=== PATIENT | female | born 1945 | race Caucasian/White ===

== ENCOUNTER 2024-03-10 02:17 | Inpatient (IN) | payer MEDICARE, OTHER ==
[~2024-03-10] VITALS: Ht 172.7 cm; Wt 105.1 kg
[2024-03-10] VITALS (9 sets, daily range): PULSE 90–109; RESP 18–24; O2SAT 89–99
--- NOTE | 2024-03-10 02:21 | NUR ---
COVID AND FLU SWABS COLLECTED AND SENT
--- NOTE | 2024-03-10 02:36 | ERN ---
ED Note History of Present Illness Stated Complaint: COUGH, N/V/D, Chief Complaint: Multiple Complaints Time Seen by MD: 02:26 Dictation: This is a 78-year-old female who presented to the emergency room with multiple complaints including cough nausea vomitings diarrhea. She also reported shortness of breath associated with cough for the past 1 week. No history of any fevers chills rigors Temperature 97.9 pulse 91 respirations 20 blood pressure 107/62 with a pulse oximetry of 97% On room air Her chronic medical problems include hypercholesterolemia and hypertension Allergies: Coded Allergies: No Known Allergies (Unverified Allergy, Unknown, 03/10/24) Past Medical History Past Medical History: High Cholesterol, Hypertension Surgical History: None Family History: Negative Social History: Negative History: Not Applicable RN Note Reviewed/Agreed w/PFSH: Yes Review of System Dictation Constitutional: Negative for fever,chills, and weight loss Eyes: Negative for injury, pain,redness, and discharge ENT: Negative for injury,pain or swelling Cardiovascular: Negative for chest pain, palpitations, and edema Respiratory: Negative for shortness of breath, cough, and wheezing, Abdomen/GI: Negative for abdominal pain, nausea, vomiting, diarrhea, and constipation Back: Negative for injury and pain : Negative for injury, bleeding and discharge MS/Extremity: Negative for injury and deformity Skin: Negative for rash, and discoloration Neuro: Negative for headache, weakness, numbness, tingling, and seizure Psych: Negative for suicide ideation, homicidal ideation, and hallucinations Initial Vital Sign VS Vital Signs Date Time Temp Pulse Resp B/P (MAP) Pulse Ox O2 Delivery O2 Flow Rate FiO2 03/10/24 02:19 97.9 91 20 107/62 98 Room Air 03/10/24 02:47 2 28 Physical Exam Dictation General: awake, alert, NAD Head/Face: Normocephalic, atraumatic Eyes: PERRL, EOMI, vision at baseline ENT: oral cavity clear, TMs clear, no signs of infection Neck: Trachea midline, supple, no nuchal rigidity Cardiovascular: RRR, normal S1/S2, No MRGs, no JVD Respiratory: CTAB, no respiratory distress, No rales or wheezes Abdomen: Soft, non-tender, non-distended, normal bowel sounds, no guarding or rebound. Skin: Warm, dry, normal turgor, no rash MS/Extremity: Pulses equal, no cyanosis, neurovascular intact, FROM Neuro: COAx4, GCS 15, strength 5/5, CN 2-12 intact, normal cerebellar exam, normal gait, Psych: Normal behavior, mood, and affect normal Extremities-trace edema without any palpable cords, Homans sign is negative Results (Laboratory/Radiology) Laboratory/Radiology Laboratory Tests Test 03/10/24 02:21 03/10/24 02:33 Influenza Type A Antigen Negative For Type A Influenza Type B Antigen Negative For Type B SARS-CoV-2, RNA, NAAT NEGATIVE SARS CoV-2 White Blood Count 9.7 K/uL (4.8-10.8) Red Blood Count 3.93 MIL/uL (4.00-5.50) L Hemoglobin 8.1 g/dL (12.0-16.0) L Hematocrit 26.3 % (36-48) L Mean Corpuscular Volume 66.9 fL (79-99) L Mean Corpuscular Hemoglobin 20.6 pg (27.0-33.0) L Mean Corpuscular Hemoglobin Concent 30.8 g/dL (32.0-36.0) L Red Cell Distribution Width 15.9 % (11.0-15.5) H Platelet Count 604 K/uL (130-400) H Mean Platelet Volume 9.9 fL (7.5-10.5) Immature Granulocyte % (Auto) 0.5 % (0-1) Neutrophils (%) (Auto) 88.8 % (40.0-77.0) H Lymphocytes (%) (Auto) 5.7 % (21.0-51.0) L Monocytes (%) (Auto) 4.8 % (3.0-13.0) Eosinophils (%) (Auto) 0.1 % (0.0-8.0) Basophils (%) (Auto) 0.1 % (0.0-5.0) Neutrophils # (Auto) 8.6 K/uL (1.8-7.7) H Lymphocytes # (Auto) 0.6 K/uL (1.0-4.8) L Monocytes # (Auto) 0.5 K/uL (0.1-1.0) Eosinophils # (Auto) 0.01 K/uL (0.00-0.70) Basophils # (Auto) 0.01 K/uL (0.00-0.20) Absolute Immature Granulocyte (auto 0.05 K/uL (0-1) Nucleated Red Blood Cells 0.0 % (0.0-0.19) White Cell Morphology Comment See comments Red Blood Cell Morphology See comments Sodium Level 131 mmol/L (136-145) L Potassium Level 3.1 mmol/L (3.5-5.1) L Chloride Level 92 mmol/L (101-111) L Carbon Dioxide Level 27 mmol/L (21-32) Blood Urea Nitrogen 56 mg/dL (7-18) H Creatinine 1.8 mg/dL (0.5-1.0) H Glomerular Filtration Rate Calc 29 mL/min (>90) Random Glucose 145 mg/dL (70-105) H Lactic Acid Level 2.7 mmol/L (0.8-2.5) H Total Calcium 10.4 mg/dL (8.5-10.1) H Troponin I High Sensitivity 14 ng/L (4-50) B-Type Natriuretic Peptide 103 pg/mL (0-100) H Labs Reviewed?: Yes ED Course ED Course Orders Procedure Category Date Status Time Cbc With Differential LAB 03/10/24 Complete 02:20 Basic Metabolic Panel LAB 03/10/24 Complete 02:20 Troponin I High LAB 03/10/24 Complete Sensitivity 02:20 B-Type Natriuretic LAB 03/10/24 Complete Peptide 02:20 Lactic Acid LAB 03/10/24 Complete 02:20 12 Lead Ekg Tracing- EKG 03/10/24 Logged Technical 02:20 Chest 1vw RAD 03/10/24 Taken 02:20 Covid Rna Naat LAB 03/10/24 Complete 02:20 Influenza Type A & B, LAB 03/10/24 Complete Rapid 02:20 Ipratropium/Albuterol PHA 03/10/24 Complete Neb (Duoneb) 03:00 Methylprednisolone PHA 03/10/24 Complete Succ 125mg (Solu-Medr 03:00 Guaifenesin-Codeine PHA 03/10/24 Complete Syrup 5ml (Robitussi 03:00 Ondansetron 4mg Inj PHA 03/10/24 Complete (Zofran 4mg Inj) 02:58 Ondansetron 4mg Inj PHA 03/10/24 Complete (Zofran 4mg Inj) 03:30 0.9% Nacl 500ml PHA 03/10/24 In Process Iv.Soln (Ns 500ml 05:00 Azithromycin 500mg+Ns PHA 03/10/24 In Process 250ml (Azithromyci 05:00 Ceftriaxone 1g Vial PHA 03/10/24 In Process (Rocephine 1g Inj) 05:00 Ipratropium/Albuterol PHA 03/10/24 In Process Neb (Duoneb) 05:00 Current Medications Medications (Trade) Dose Ordered Sig/Jesus Route PRN Reason Start Time Stop Time Status Last Admin Dose Admin Albuterol (DUOneb) 1 UDVIAL ONCE ONCE IH 03/10/24 03:00 03/10/24 03:01 DC 03/10/24 03:56 Albuterol (DUOneb) 1 UDVIAL ONCE ONCE IH 03/10/24 05:00 03/10/24 05:01 Azithromycin 250 ml @ 250 mls/hr Q24H IVPB 03/10/24 05:00 03/20/24 04:59 Ceftriaxone Sodium (ROCEphine 1G INJ) 1 gm ONCE ONCE IVPB 03/10/24 05:00 03/10/24 05:01 Guaifenesin/ Codeine Phosphate (RobiTUSSin AC 5 ML SYRUP) 5 ml ONCE ONCE PO 03/10/24 03:00 03/10/24 03:01 DC 03/10/24 02:52 Methylprednisolone Sodium Succinate (Solu-medROL 125MG) 60 mg ONCE ONCE IVP 03/10/24 03:00 03/10/24 03:01 DC 03/10/24 02:52 Ondansetron HCl (zoFRAN 4MG INJ) 4 mg ONCE ONCE IVP 03/10/24 03:30 03/10/24 03:31 DC 03/10/24 03:19 Ondansetron HCl (zoFRAN 4MG INJ) 4 mg STK-MED ONCE .ROUTE 03/10/24 02:58 03/10/24 02:59 DC Sodium Chloride 500 ml @ 0 mls/hr ONCE ONCE IV 03/10/24 05:00 03/10/24 05:01 Vital Signs Date Time Temp Pulse Resp B/P (MAP) Pulse Ox O2 Delivery O2 Flow Rate FiO2 03/10/24 03:57 92 19 03/10/24 03:57 90 20 Nasal Cannula 2.0 28 03/10/24 03:44 98.6 92 25 114/54 96 Nasal Cannula* 2 28 03/10/24 02:47 94 27 100/54 100 Nasal Cannula* 2 03/10/24 02:19 97.9 91 20 107/62 98 Room Air We will perform diagnostic labs, advanced imaging and administer medications according to the patient's complaint. Once the results are available, will review and personally interpreted the labs to rule out any acute life-threa tening emergency the trach require immediate intervention and treatment. I will then re-evaluate the patient after treatment and diagnostic exams have return to determine whether the patient requires any further testing, can safely be discharged home or need further admission to hospital for additional treatment and evaluation. Labs reviewed CBC showed a white count of 9.7 hemoglobin 8.1 platelets 604 viral serology was negative. BNP 7 is significant for sodium of 131 potassium of 3.1 chloride 94 bicarb 27 BUN and creatinine are 56 and 1.8. Lactic acid was 2.7 chest x-ray showed bilateral increased markings suggestive of possible atypical pneumonia. The other possibility would be aspiration pneumonia in the setting of nausea vomitings. I updated the patient and her about my concerns with the anemia pneumonia and acute kidney injury and recommended admission to the hospital for further management. They are agreeable 4:10 a.m. call placed to the hospitalist group. No response 4:35 a.m. 2nd call placed to the hospitalist group. Nurse practitioner mian returned the call and stated that she will not be able to admit and offered to take another sicker patient and wanted us to call the a.m. shift Medical Decision Making MDM MDM: Differential diagnosis: Atypical pneumonia, aspiration pneumonia, severe bronchitis, volume overload Rationale: Tests considered and ordered secondary to shared decision making include: labs, ECG and radiology Previous outside records reviewed: Old ER visits. Risk of complication and/or morbidity or mortality of patient management: None Medications-Per medication reconciliation Need for hospitalization: Patient does meet criteria for hospitalization. Need for emergency major/minor surgery: No There are no social concerns with this patient. Prescription drug management Prescriptions will include symptomatic care Patient's prior external medical records from other ER visits were reviewed by me as indicated. Prior testing and results from previous visits were reviewed. Prior tests were taken into account with medical decision making and resource utilization, independent historian/historians were used to obtain complete medical history. I independently interpreted the test that were performed, results were reviewed by me and considered findings on radiology if ordered. Medical management and examination interpretation discussions were had by me with other qualified healthcare professionals as indicated for the patient's care. Problem List Problem List: (1) Bilateral pneumonia (2) Lactic acidosis (3) Severe anemia (4) Sepsis (5) Acute kidney failure (6) Hyponatremia (7) Hypokalemia DX & DISP Disposition: Inpatient Decision to Admit Time: 04:10 Departure Impression: Primary Impression: Bilateral pneumonia Additional Impressions: Lactic acidosis, Severe anemia, Sepsis, Acute kidney failure, Hyponatremia, Hypokalemia Condition: Stable Additional Instructions: Patient was informed of all the diagnostic labs and procedures conducted in the emergency room today and demonstrated understanding of the results. I personally reviewed and interpreted all the diagnostic exams performed in the ER today. The patient will be admitted to the hospital for further treatment and evaluation. Disposition-admit to facility Condition-stable/guarded Course-uncertain at this time Pain status-decreased Assessment-exam unchanged Admission Certification- I certify that the patients status is appropriate and is based on my best clinical judgment and the patient's condition as documented in the medical records ALEJA SO MD Mar 10, 2024 02:36
[2024-03-10 02:46] LABS: BASOPHILS # (AUTO) 0.01 K/uL (0.00-0.20); BASOPHILS % (AUTO) 0.1 % (0.0-5.0); EOSINOPHILS # (AUTO) 0.01 K/uL (0.00-0.70); EOSINOPHILS % (AUTO) 0.1 % (0.0-8.0); HEMATOCRIT 26.3 % (36-48); IMMATURE GRANULOCYTE ABSOLUTE 0.05 K/uL (0-1); LYMPHOCYTES # (AUTO) 0.6 K/uL (1.0-4.8); LYMPHOCYTES % (AUTO) 5.7 % (21.0-51.0); MEAN CORPUSCULAR HEMOGLOBIN 20.6 pg (27.0-33.0); MEAN CORPUSCULAR HGB CONC 30.8 g/dL (32.0-36.0); MEAN CORPUSCULAR VOLUME 66.9 fL (79-99); MONOCYTES # (AUTO) 0.5 K/uL (0.1-1.0); MONOCYTES % (AUTO) 4.8 % (3.0-13.0); NEUTROPHILS # (AUTO) 8.6 K/uL (1.8-7.7); NEUTROPHILS % (AUTO) 88.8 % (40.0-77.0); PLATELET COUNT (AUTO) 604 K/uL (130-400); RED BLOOD CELL COUNT(AUTO) 3.93 MIL/uL (4.00-5.50); RED CELL DISTRIBUTION WIDTH 15.9 % (11.0-15.5); WHITE BLOOD COUNT (AUTO) 9.7 K/uL (4.8-10.8)
[2024-03-10 02:46] LABS: SARS-CoV-2, RNA, NAAT NEGATIVE SARS CoV-2 (NEGATIVE)
[2024-03-10 02:52] LABS: INFLUENZA TYPE A Negative For Type A (NEGATIVE); INFLUENZA TYPE B Negative For Type B (NEGATIVE)
[2024-03-10] MEDS: Solu-medROL 125MG VIAL IVP ONE (02:52)
[2024-03-10] MEDS: guaiFENesin-coDEINE 5 ML SYRUP PO ONE (02:52)
--- NOTE | 2024-03-10 02:52 | NUR ---
PATIENT VOMITING X 2 EPISODES WHILE RECEIVING NEBULIZER TREATMENT, ER MD AWARE, VERBAL ORDER FOR ZOFRAN RECEIVED
[2024-03-10 02:57] LABS: CREATININE 1.8 mg/dL (0.5-1.0); POTASSIUM 3.1 mmol/L (3.5-5.1)
--- NOTE | 2024-03-10 03:00 | NUR ---
ATTEMPTED TO CHANGE PATIENT INTO HOSPITAL GOWN DUE TO VOMIT ON CLOTHING, PATIENT STATES SHE PREFERS TO STAY IN [facility] AT THIS TIME
[2024-03-10 03:18] LABS: B-TYPE NATRIURETIC PEPTIDE 103 pg/mL (0-100)
[2024-03-10] MEDS: ondanSETRON 4MG INJ ONE (03:19)
[2024-03-10] MEDS: ondanSETRON 4MG INJ IVP ONE (03:19)
[2024-03-10] MEDS: IpraTROPium/alBUTERol SULFATE 3 ML SOLUTION IH ONE ×2 (03:56→05:08)
[2024-03-10] MEDS: cefTRIAXone 1G VIAL IVPB ONE (05:27)
[2024-03-10] MEDS: 0.9% NACL 500ML IV.SOLN 500 ML IV ONE (05:28)
[2024-03-10] MEDS: PoTASSium BIcarbonate/CIT AC 25 MEQ TABLET.EFF PO ONE (05:28)
[2024-03-10] MEDS: morPHINE 2 MG SYG IVP ONE ×2 (05:28→10:31)
[2024-03-10] MEDS: AZITHROMYCIN 500MG+NS 250ML 250 ML IVPB SCH (05:41)
--- NOTE | 2024-03-10 05:44 | NUR ---
ATTEMPTED TO CHANGE PATIENT INTO HOSPITAL GOWN, STILL STATING SHE DOES NOT WANT TO CHANGE RIGHT NOW
--- NOTE | 2024-03-10 05:45 | NUR ---
PATIENT DID NOT BRING PRESCRIBED MEDICATIONS FROM HOME, UNABLE TO COMPLETE MEDICATION RECONCILIATION. INSTRUCTED PATIENT TO HAVE SPOUSE BRING MEDICATIONS WHEN HE RETURNS TO HOSPITAL SO THEY CAN BE RECONCILED
[2024-03-10] MEDS ORDERED: Solu-medROL 40MG VIAL IVP SCH (07:30)
--- NOTE | 2024-03-10 07:41 | HP ---
[facility] HISTORY AND PHYSICAL Date of Service: Mar 10, 2024 Time of Service: 07:25 HISTORY OF PRESENT ILLNESS: [ ] This is a 78-year-old female that presents in ED with chief complaints of persistent cough nausea and vomiting and diarrhea. Onset for one-week. She reports that [place] and most acquaintances have similar symptoms. She reports diarrhea subsided. She denies fever chills. However, continues with dyspnea with minimal exertion and productive cough and decided to come ED for further evaluation. The patient was seen in ED patient's has chest discomfort however troponin was negative most likely musculoskeletal secondary to persistent cough and nausea vomiting. Patient's respirations 26. Noted no edema to lower extremity she has no heart disease. She does not have a gallbladder reports she is unable to keep anything down. We will bring exchange floor manager's on board. REVIEW OF SYSTEMS CONSTITUTIONAL: Denies fevers, chills, or night sweats. No unintentional weight loss reported. NEUROLOGICAL: Denies headache, amaurosis fugax, motor weakness, sensory deficit, vertigo/spinning sensation, gait abnormalities, or tremors. ENT: No hearing loss, otalgia, otorrhea, rhinitis, rhinorrhea, hoarseness, or sore throat. CARDIOVASCULAR: Denies any exertional angina, dyspnea on exertion, orthopnea, paroxysmal nocturnal dyspnea, palpitations, life-threatening arrhythmias, claudication. PULMONARY: Denies any shortness of breath, cough, phlegm/sputum, hemoptysis, pleuritic chest pain. SLEEP: Denies morning headaches, daytime somnolence or napping. Denies difficulty falling asleep, staying asleep, waking from sleep. Denies knowledge of snoring. GASTROINTESTINAL: Denies any type of dysphagia to either liquids or solids. Denies nausea, vomiting, pyrosis, early satiety, abdominal pain, diarrhea, constipation, or changes in stool consistency or caliber. Denies coffee-ground emesis, hematemesis, hematochezia, or melanotic stools. GENITOURINARY: Denies frequency, urgency, nocturia, hematuria or incontinence (Storage/Irritative symptoms.) Low urinary stream, straining to void, urinary intermittency or hesitancy, splitting of the voiding stream, terminal dribbling. ENDOCRINOLOGIC: Denies polyuria, polydipsia, polyphagia or heat/cold intolerances. HEMATOLOGIC: Denies thrombophilia/previous clots, or coagulopathy/bleeding disorders. ONCOLOGIC: Denies personal history of malignancy. DERMATOLOGIC: Denies rashes or pruritus. PSYCHIATRIC: Denies any suicidal or homicidal ideation. Denies hallucinations. PAST MEDICAL HISTORY: [ ]hypercholesterolemia and hypertension PAST SURGICAL HISTORY: [ ]none PAST SOCIAL HISTORY: [ ] Denies smoking tobacco products and alcohol use. FAMILY HISTORY: [ ] Noncontributory Coded Allergies: No Known Allergies (Unverified Allergy, Unknown, 03/10/24) PHYSICAL EXAM GENERAL APPEARANCE: The patient is awake, alert, and oriented, in no acute cardiopulmonary distress. NEUROLOGICAL: Cranial nerves II-XII grossly intact. Motor is 5/5 in bilateral upper and lower extremities proximal to distal. No sensory deficits. HEENT: Face is symmetric. Pupils are equal and reactive. Extraocular movements are intact. NECK: Supple. No JVD. No thyromegaly. No submental, submandibular, pre- /postauricular, occipital or supraclavicular lymphadenopathy. CHEST: Normal chest expansion. No Telemetry. LUNGS: Absence of any rales, rhonchi or any wheezing. CARDIOVASCULAR: Regular. S1 and S2 normal. No appreciable rubs, murmurs or gallops. ABDOMEN: Soft, nontender, and nondistended. There is no rebound, voluntary guarding, or rigidity. : Deferred. No Ba. EXTREMITIES: Non-edematous and not cyanotic. No clubbing. Good capillary r efill. SKIN: No skin breakdown. Vital Sign (Last 24 Hours) 03/10/24 06:30 Temp 98.6 Pulse 105 Resp 21 B/P (MAP) 127/57 Pulse Ox 95 O2 Delivery Nasal Cannula* O2 Flow Rate 2 FiO2 28 LABS: Laboratory: Test 03/10/24 06:19 03/10/24 02:33 03/10/24 02:21 Range/Units Lactic Acid Level 2.1 0.8-2.5 mmol/L White Blood Count 9.7 4.8-10.8 K/uL Red Blood Count 3.93 L 4.00-5.50 MIL/uL Hemoglobin 8.1 L 12.0-16.0 g/dL Hematocrit 26.3 L 36-48 % Mean Corpuscular Volume 66.9 L 79-99 fL Mean Corpuscular Hemoglobin 20.6 L 27.0-33.0 pg Mean Corpuscular Hemoglobin Concent 30.8 L 32.0-36.0 g/dL Red Cell Distribution Width 15.9 H 11.0-15.5 % Platelet Count 604 H 130-400 K/uL Mean Platelet Volume 9.9 7.5-10.5 fL Immature Granulocyte % (Auto) 0.5 0-1 % Neutrophils (%) (Auto) 88.8 H 40.0-77.0 % Lymphocytes (%) (Auto) 5.7 L 21.0-51.0 % Monocytes (%) (Auto) 4.8 3.0-13.0 % Eosinophils (%) (Auto) 0.1 0.0-8.0 % Basophils (%) (Auto) 0.1 0.0-5.0 % Neutrophils # (Auto) 8.6 H 1.8-7.7 K/uL Lymphocytes # (Auto) 0.6 L 1.0-4.8 K/uL Monocytes # (Auto) 0.5 0.1-1.0 K/uL Eosinophils # (Auto) 0.01 0.00-0.70 K/uL Basophils # (Auto) 0.01 0.00-0.20 K/uL Absolute Immature Granulocyte (auto 0.05 0-1 K/uL Nucleated Red Blood Cells 0.0 0.0-0.19 % White Cell Morphology Comment See comments Red Blood Cell Morphology See comments Sodium Level 131 L 136-145 mmol/L Potassium Level 3.1 L 3.5-5.1 mmol/L Chloride Level 92 L 101-111 mmol/L Carbon Dioxide Level 27 21-32 mmol/L Blood Urea Nitrogen 56 H 7-18 mg/dL Creatinine 1.8 H 0.5-1.0 mg/dL Glomerular Filtration Rate Calc 29 >90 mL/min Random Glucose 145 H 70-105 mg/dL Total Calcium 10.4 H 8.5-10.1 mg/dL Troponin I High Sensitivity 14 4-50 ng/L B-Type Natriuretic Peptide 103 H 0-100 pg/mL Influenza Type A Antigen Negative For Type A NEGATIVE Influenza Type B Antigen Negative For Type B NEGATIVE SARS-CoV-2, RNA, NAAT NEGATIVE SARS CoV-2 NEGATIVE Current Medications Medications (Trade) Dose Ordered Sig/Jesus Route PRN Reason Start Time Stop Time Status Last Admin Dose Admin Azithromycin 250 ml @ 250 mls/hr Q24H IVPB 03/10/24 05:00 03/20/24 04:59 03/10/24 05:41 250 MLS/HR DIAGNOSTICS / RADIOLOGY: [ ] ASSESSMENT: Sepsis: lactic acid 2.7, low blood pressure, RR: 27)POA acute resp failure with hypoxia POA elevated D dimer rule out PE POA Acute gastroenteritis POA ELVA most likely CRF stage III POA Microcytic anemia electrolytes derangement: Hypokalemia hyponatremia POA Failure to strive POA PLAN: [ ] admit to P[facility]U claims consultant: Pulmologist Sepsis: lactic acid 2.7, low blood pressure, RR: 27)POA acute resp failure with hypoxia POA - DuoNeb treatment with CPT, IV steroids, Oxygen supplemental to keep O2 sat above 92% - Abt's; Rocephin and Zithromax IV; resp sputum gram stain /culture - IS usage while awake. - PRN: antitussive as needed for cough, Montelukast 10 mg po daily - Aspiration precaution HOB at 45 degree at all time TESt: CT chest - labs d dimer acute gastroenteritis; - c diff, PCR stool, ova/parasites - metronidazole 500 mg IV q8 hrs. Labs: will add procalcitonin and crp. Avoid NSAIDs IV fluids at 50 mL/hour. CMP in a.m. GI soft bland diet Replace electrolytes as needed per protocol Anemia workup transfuse to keep hemoglobin above 7.0. - PT services OOB to chair , fall precautions PRN: MEDICATIONS Tylenol 650 mg po every 4 hrs for fever Zofran 4 mg IV every 6 hrs for n/v Hydralazine 5 mg IV every 4 hrs systolic pressure > 160 Supportive measures: DVT ppx, GI ppx all questions answered time spent: > 35 min Supervising MD: Dr. Betancourt c/d ATTESTATION BY PHYSICIAN I have seen and examined the patient. I reviewed the documentation, medical decision making, and treatment plan as noted by the resident provider above. I agree with the findings and plan of care. Eusebio Betancourt MD, ELIZABETH NP Mar 10, 2024 07:41
--- NOTE | 2024-03-10 07:49 | EKG ---
[facility] Test Date: 2024-03-10 Test Time: 02:24:58 Pat Name: MARIIA CARR Department: EDHIP Room: 415 Gender: F Sr. Manager Corporate Communications: [id number] : [id number] Requested By: ALEJA SO Order Number: [id number] Reading MD: Emmett Slater Measurements Intervals [place] Rate: 99 P: 18 [place]: 159 QRS: 54 QRSD: 149 T: -11 QT: 364 QTc: 461 Interpretive Statements Sinus rhythm Atrial premature complex Right bundle branch block No previous ECG available for comparison Electronically Signed On 03-13-2024 18:40:09 SPARK TESTER by Emmett Slater Please click the below link to view image of tracing.
[2024-03-10 08:22] LABS: ALBUMIN 2.4 g/dL (3.5-5.0)
[2024-03-10] MEDS ORDERED: hydrALAZine 20MG/ML VIAL IV PRN (08:30)
--- NOTE | 2024-03-10 08:30 | HMCIMG ---
CHEST 1VW REASON: SOB COMPARISON: None. FINDINGS: Single view of the chest was obtained. Lungs are clear. Heart size is normal. There is no pulmonary vascular congestion. Mediastinum and bony thorax appear unremarkable. IMPRESSION: 1. Normal single view chest x-ray.
[2024-03-10 09:03] LABS: % IRON SATURATION 2.1 % (22-44); IRON, SERUM 6 mcg/dL (50-170); TOTAL IRON BINDING CAPACITY 273 mcg/dL (250-450)
[2024-03-10 09:21] LABS: FERRITIN 66 ng/mL (15-150)
[2024-03-10] MEDS: metRONIDazole 500MG/100ML BAG 100 ML IVPB SCH (09:36)
[2024-03-10] MEDS: 0.9%NACL 1000ML 1,000 ML IV SCH (09:36)
[2024-03-10] MEDS: Solu-medROL 40MG VIAL IVP SCH (09:37)
[2024-03-10] MEDS: PANTOPrazole 40 MG/VIAL IVP SCH (09:37)
--- NOTE | 2024-03-10 10:10 | NUR ---
PULMO CONSULT: PATIENT REPORT GIVEN TO ALLY LORENZO,. ORDERS RECIEVED
--- NOTE | 2024-03-10 10:12 | NUR ---
PT C/O CHEST TIGHTNESS: ORDERS RECEIVED BY ELE FORM SETTER [employer]
[2024-03-10] MEDS ORDERED: PoTASSium chloRIDE 10MEQ/100ML 100 ML IV PRN ×2 (10:30)
[2024-03-10] MEDS: furoSEMIDE 20MG VIAL IV ONE (10:31)
[2024-03-10] MEDS: monteLUKAST sodIUM 10 MG TAB PO SCH (10:31)
[2024-03-10] MEDS: ZOSYN 3.375GM +NS 50ML IV SCH (11:16)
[2024-03-10] MEDS: BUDESONIDE 0.5 MG/2 ML INH IH SCH (11:18)
--- NOTE | 2024-03-10 11:18 | NUR ---
DCP: HOME met with pt and Twan Barriga [phone]. Couple is from [place] and have moved here permanently last year to live at [facility] and [facility]. Prior to admission, pt states she has no needed a PCP and not sure if she will try to get in with Melany Waldron. Pt is independent of her ADLS, has walker if needed, no in home care services needed at this time. Community resources given, dcp is home Addendum: 03/10/24 at 1123 by ALISHA MILLER Amended: Links added.
[2024-03-10] MEDS: acetylCYSTeine10% 4ML VIAL IH SCH (11:19)
[2024-03-10] MEDS: IpraTROPium/alBUTERol SULFATE 3 ML SOLUTION IH SCH (11:19)
[2024-03-10] MEDS: SODIUM CHLORIDE 3% FOR INHALATION 4 ML/AMP VIAL.NEB IH ONE ×4 (11:26→23:34)
--- NOTE | 2024-03-10 12:22 | EKG ---
[facility] Test Date: 2024-03-10 Test Time: 10:25:24 Pat Name: MARIIA CARR Department: EDHIP Room: 415 Gender: F Sausage Inspector: [id number] : 1945 Requested By: ALLY MASON Order Number: [id number] Reading MD: Emmett Slater Measurements Intervals [place] Rate: 104 P: 18 [place]: 167 QRS: 52 QRSD: 147 T: -21 QT: 393 QTc: 511 Interpretive Statements Sinus tachycardia Atrial premature complexes Right bundle branch block Compared to ECG 03/10/2024 02:24:58 Sinus rhythm no longer present Electronically Signed On 03-13-2024 18:44:07 MUSIC AUTOGRAPHER by Emmett Slater Please click the below link to view image of tracing.
[2024-03-10] MEDS: PoTASSium chl 10% ELIXIR 20MEQ 20 MEQ/15 ML UDCUP PO PRN (14:08)
--- NOTE | 2024-03-10 14:12 | NUR ---
PT AWARE OF RESP CULUTURE ORDER., GIVEN CUP FOR SPUTUM COLLECTION
[2024-03-10 16:19] LABS: ABG BASE EXCESS -2.2 mmol/L (-2.0-3.0); ABG HCO3 20.9 mmol/L (21.0-28.0); ABG OXYGEN SATURATION 94.9 % (94.0-98.0); ABG PCO2 32 mmHg (32-45); ABG PH 7.439 (7.350-7.450); PO2, ARTERIAL BG 70.5 mmHg (83.0-108.0); VENT MODE, BG NC (ROOM AIR)
--- NOTE | 2024-03-10 16:28 | HMCIMG ---
CT CHEST W/O CONTRAST REASON: rule out mass/pneumonia hypoxic resp failure COMPARISON: None. TECHNIQUE: Multiple sequential axial images of the chest were obtained from the thoracic inlet through the upper pole of the kidneys without intravenous contrast administration. FINDINGS: Lungs are clear. There are no focal masses or infiltrates. There is normal-appearing pulmonary interstitial pattern. Heart size is borderline. There is no vascular congestion or pleural effusion. There is no hilar or mediastinal lymphadenopathy. There is a moderate hiatal hernia. Stomach is fluid-filled and mildly distended. Gallbladder is absent. Upper abdominal structures appear otherwise unremarkable. IMPRESSION: 1. Moderate hiatal hernia, the stomach is diffusely filled with fluid 2. Otherwise unremarkable noncontrast CT chest. CT was performed with one or more following dose reduction techniques: automated exposure control, adjustment of the mA and kv according to patient's size, or use of a iterative reconstruction technique.
[2024-03-10] MEDS: HEParin 5,000 UNIT VIAL SQ SCH (16:53)
--- NOTE | 2024-03-10 19:41 | CONS ---
[facility] CONSULTATION NOTE Date Patient Seen: Mar 10, 2024 Time of Visit: 19:37 Supervising Physician: Dr. Jessica Galindo Reason for Consultation: Acute hypoxic respiratory failure Consulting Physician: Lalitha quiros Outpatient Specialists: [ ] Inpatient Consults: [ ] PROBLEM LIST: Acute hypoxic respiratory failure, negative for COVID and flu chest x-ray showed no acute infiltrate, POA Possible ROSEMARIE, POA Hypertension, POA Hyperlipidemia, POA Microcytic anemia, POA Hyponatremia, POA Hypokalemia, POA Acute kidney injury, POA PLAN: Admit per primary Continue O2 therapy Keep O2 saturation above 90% Keep head of bed above 30 DuoNeb q.6 as needed for shortness of breaths Complete bedrest for now Incentive spirometry Bilateral SCDs Obtain 2D echo Obtain UA Anticoagulation management per primary Obtain V/Q scan CBC, CMP, magnesium level daily HPI: 78-year-old female with past medical history of obesity, hypertension, hyperlipidemia who presented to ED with complaint of worsening shortness of breath, with associated cough, nausea and vomiting and episodic diarrhea for almost one week and found to have acute kidney injury, acute hypoxic respiratory failure, hypokalemia and hyponatremia. Patient was seen and examined in ED with no relatives present at bedside. According to her she has been having issues with shortness of bed for the past several days. Her symptoms continued to worsen prompting ER visit today. In ED chest x-ray was done and showed no acute intrapulmonary process, CT of the chest did not reveal any acute infiltrates. Her CBC is remarkable for hemoglobin of 8.1, and hematocrit of 26.6, with platelet count of 606. Her chemistry showed sodium level of 131, potassium level of 3.0, creatinine level 1.8, and BUN of 56. For COVID and flu tests were unremarkable, UA is currently pending at this time. In ED patient required O2 administration for episodic desaturation. [facility]ology was consulted for evaluation of acute hypoxic respiratory failure. At present patient is currently hemodynamically stable, on2 L of oxygen with appropriate oxygen saturation. She denies any lung problem, she denies any smoking, or exposure to secondhand smoking. She also denies any use of albuterol or oxygen at home. However she is complaining of periodic cough with whitish phlegm and paroxysmal nocturnal dyspnea. Patient denies any headache, chest pain, abdominal pain, fever, or flu-like symptoms. Patient is complaining of generalized body weakness and mild shortness of breath. PAST MEDICAL HX: see above PAST SURGICAL HX: noncontributory SOCIAL HISTORY: No tobacco, ETOH, or illicit drug use Coded Allergies: No Known Allergies (Unverified Allergy, Unknown, 03/10/24) REVIEW OF SYSTEMS: 12 point ROS reviewed with patient. Pertinent positives mentioned above. Otherwise negative. PHYSICAL EXAM: GENERAL: alert, weak, awake oriented x 3 HEENT: EOMI, Sclera non icteric, moist mucosa NECK: Supple, no JVD, trachea midline LUNGS: Clear breath sounds bilaterally. Diminished bibasilar area HEART: Regular rate and rhythm. Normal S1 and S2, without murmurs ABD: Large body habitus EXT: No clubbing cyanosis 3+ pitting edema NEURO: Alert and oriented to person, follows commands Vital Signs (last 8hr) Date Time Temp Pulse Resp B/P (MAP) Pulse Ox O2 Delivery O2 Flow Rate FiO2 03/10/24 18:12 108 20 130/64 95 Nasal Cannula* 4 36 03/10/24 16:05 107 20 127/62 96 Nasal Cannula* 2 28 03/10/24 12:18 115 22 109/52 95 Nasal Cannula* 3 32 03/10/24 11:58 109 20 03/10/24 11:57 109 24 N/A Room Air LABS: Hematology Labs: Test 03/10/24 06:19 03/10/24 02:33 Range/Units Reticulocyte Count (auto) 1.53541 0.42-2.23 % Immature Reticulocyte Fraction 18.20 H 0.18-0.48 % White Blood Count 9.7 4.8-10.8 K/uL Red Blood Count 3.93 L 4.00-5.50 MIL/uL Hemoglobin 8.1 L 12.0-16.0 g/dL Hematocrit 26.3 L 36-48 % Mean Corpuscular Volume 66.9 L 79-99 fL Mean Corpuscular Hemoglobin 20.6 L 27.0-33.0 pg Mean Corpuscular Hemoglobin Concent 30.8 L 32.0-36.0 g/dL Red Cell Distribution Width 15.9 H 11.0-15.5 % Platelet Count 604 H 130-400 K/uL Mean Platelet Volume 9.9 7.5-10.5 fL Immature Granulocyte % (Auto) 0.5 0-1 % Neutrophils (%) (Auto) 88.8 H 40.0-77.0 % Lymphocytes (%) (Auto) 5.7 L 21.0-51.0 % Monocytes (%) (Auto) 4.8 3.0-13.0 % Eosinophils (%) (Auto) 0.1 0.0-8.0 % Basophils (%) (Auto) 0.1 0.0-5.0 % Neutrophils # (Auto) 8.6 H 1.8-7.7 K/uL Lymphocytes # (Auto) 0.6 L 1.0-4.8 K/uL Monocytes # (Auto) 0.5 0.1-1.0 K/uL Eosinophils # (Auto) 0.01 0.00-0.70 K/uL Basophils # (Auto) 0.01 0.00-0.20 K/uL Absolute Immature Granulocyte (auto 0.05 0-1 K/uL Nucleated Red Blood Cells 0.0 0.0-0.19 % White Cell Morphology Comment See comments Red Blood Cell Morphology See comments Chemistry Labs: Test 03/10/24 16:43 03/10/24 14:07 03/10/24 11:23 03/10/24 06:19 Range/Units Total Creatine Kinase 75 # 21-232 U/L Troponin I High Sensitivity 16.5 4-50 ng/L Thyroid Stimulating Hormone (TSH) 0.74 0.36-3.74 uIU/mL Whole Blood Glucose 110 70-110 MG/DL Lactic Acid Level 2.1 0.8-2.5 mmol/L Iron Level 6 L 50-170 mcg/dL Total Iron Binding Capacity 273 250-450 mcg/dL Percent Iron Saturation 2.1 L 22-44 % Ferritin 66 15-150 ng/mL C-Reactive Protein, Quantitative 412.30 H 0.5-3.0 mg/L Albumin 2.4 L 3.5-5.0 g/dL Vitamin B12 Level 7072 H 193-986 pg/mL Folic Acid (LAB) > 20.00 H 2-20 ng/mL Procalcitonin 28.83 H 0.05-0.5 ng/mL Test 03/10/24 02:33 Range/Units Sodium Level 131 L 136-145 mmol/L Potassium Level 3.1 L 3.5-5.1 mmol/L Chloride Level 92 L 101-111 mmol/L Carbon Dioxide Level 27 21-32 mmol/L Blood Urea Nitrogen 56 H 7-18 mg/dL Creatinine 1.8 H 0.5-1.0 mg/dL Glomerular Filtration Rate Calc 29 >90 mL/min Random Glucose 145 H 70-105 mg/dL Total Calcium 10.4 H 8.5-10.1 mg/dL B-Type Natriuretic Peptide 103 H 0-100 pg/mL Coagulation Labs: Test 03/10/24 06:19 Range/Units D-Dimer Quantitative (PE/DVT) 9939 *H 0-500 ng/mL DIAGNOSTICS / RADIOLOGY RESULTS: CT CHEST W/O CONTRAST REASON: rule out mass/pneumonia hypoxic resp failure COMPARISON: None. TECHNIQUE: Multiple sequential axial images of the chest were obtained from the thoracic inlet through the upper pole of the kidneys without intravenous contrast administration. FINDINGS: Lungs are clear. There are no focal masses or infiltrates. There is normal-appearing pulmonary interstitial pattern. Heart size is borderline. There is no vascular congestion or pleural effusion. There is no hilar or mediastinal lymphadenopathy. There is a moderate hiatal hernia. Stomach is fluid-filled and mildly distended. Gallbladder is absent. Upper abdominal structures appear otherwise unremarkable. IMPRESSION: 1. Moderate hiatal hernia, the stomach is diffusely filled with fluid 2. Otherwise unremarkable noncontrast CT chest. CHEST 1VW REASON: SOB COMPARISON: None. FINDINGS: Single view of the chest was obtained. Lungs are clear. Heart size is normal. There is no pulmonary vascular congestion. Mediastinum and bony thorax appear unremarkable. IMPRESSION: 1. Normal single view chest x-ray. PLAN NEURO: Minimize central acting medications as possible. Maintain fall precautions, adequate lighting during the day PULMONARY: Supplemental 02 as needed. Maintain aspiration precautions at all times CARDIOVASCULAR: Follow hemodynamics. Vital signs per facility protocol GI & NUTRITION: Continue with nutritional support. Continue stool softeners and laxatives as needed. KIDNEYS & ELECTROLYTES: Strict monitoring of intake, output and overall fluid balance. Avoid nephrotoxic medications to the extent possible. Medications to be dosed according to renal function. Monitor electrolytes and replace as needed ENDOCRINE: Maintain blood glucose between 100-180 at all times. Hypoglycemia protocol in place INFECTIOUS DISEASE: Trend temperature, WBC and procalcitonin level Follow cultures, deescalate antibiotics as soon as possible. Panculture if new onset fever ONCOLOGY/HEMATOLOGY/COAGULATION: Monitor for s/s of bleeding Monitor hemoglobin, coagulation studies as needed SKIN: Pressure ulcer prevention per facility protocol Specialty mattress ORTHO/REHAB: Continue PT/OT Prophylaxis: Continue GI and DVT prophylaxis Code Status: Full Resuscitation Disposition: TBD Other: Total patient care time exceeds 35 minutes excluding all procedures. Supervising physician: Dr. Jessica MAHARAJ,JAGDISH Salas AGACNP Mar 10, 2024 19:41
[2024-03-11] VITALS (7 sets, daily range): BP systolic 128–134; BP diastolic 57–76; PULSE 93–106; RESP 18–20; TEMP 97.4–98.2; O2SAT 94–95
[2024-03-11] MEDS ORDERED: cefTRIAXone 1G VIAL IVPB SCH (08:00)
--- NOTE | 2024-03-11 08:28 | NUR ---
BREAKFAST TRAY PROVIDED AND SET UP AT BEDSIDE FOR PT.
[2024-03-11] MEDS: AZITHROMYCIN 500MG+NS 250ML 250 ML IVPB SCH (08:41)
--- NOTE | 2024-03-11 10:08 | PN ---
[facility] PROGRESS NOTE Date of Service: Mar 11, 2024 Time of Service: 10:06 SUBJECTIVE: [ ] This is a 78-year-old female that presents in ED with chief complaints of persistent cough nausea and vomiting and diarrhea. Onset for one-week. She reports that [place] and most acquaintances have similar symptoms. She reports diarrhea subsided. She denies fever chills. However, continues with dyspnea with minimal exertion and productive cough and decided to come ED for further evaluation. March 11, 2024 patient is seen and examined earlier this morning. Reviewed chart imaging. Patient with a low H&H 7.0 patient is asymptomatic we will get H&H every 6 hours this morning reports no active bleeding. However she did have severe diarrhea prior to this admission. Occult stool blood and consult GI patient is doing much better today compared to yesterday. On nasal cannula 2 L physical therapy to ambulate patient we will going to attempt to titrate oxygen. REVIEW OF SYSTEMS CONSTITUTIONAL: Denies fevers, chills, or night sweats. No unintentional weight loss reported. NEUROLOGICAL: Denies headache, amaurosis fugax, motor weakness, sensory deficit, vertigo/spinning sensation, gait abnormalities, or tremors. ENT: No hearing loss, otalgia, otorrhea, rhinitis, rhinorrhea, hoarseness, or sore throat. CARDIOVASCULAR: Denies any exertional angina, dyspnea on exertion, orthopnea, paroxysmal nocturnal dyspnea, palpitations, life-threatening arrhythmias, claudication. PULMONARY: Denies any shortness of breath, cough, phlegm/sputum, hemoptysis, pleuritic chest pain. SLEEP: Denies morning headaches, daytime somnolence or napping. Denies difficulty falling asleep, staying asleep, waking from sleep. Denies knowledge of snoring. GASTROINTESTINAL: Denies any type of dysphagia to either liquids or solids. Denies nausea, vomiting, pyrosis, early satiety, abdominal pain, diarrhea, constipation, or changes in stool consistency or caliber. Denies coffee-ground emesis, hematemesis, hematochezia, or melanotic stools. GENITOURINARY: Denies frequency, urgency, nocturia, hematuria or incontinence (Storage/Irritative symptoms.) Low urinary stream, straining to void, urinary intermittency or hesitancy, splitting of the voiding stream, terminal dribbling. ENDOCRINOLOGIC: Denies polyuria, polydipsia, polyphagia or heat/cold intolerances. HEMATOLOGIC: Denies thrombophilia/previous clots, or coagulopathy/bleeding disorders. ONCOLOGIC: Denies personal history of malignancy. DERMATOLOGIC: Denies rashes or pruritus. PSYCHIATRIC: Denies any suicidal or homicidal ideation. Denies hallucinations. PHYSICAL EXAM GENERAL APPEARANCE: The patient is awake, alert, and oriented, in no acute cardiopulmonary distress. NEUROLOGICAL: Cranial nerves II-XII grossly intact. Motor is 5/5 in bilateral upper and lower extremities proximal to distal. No sensory deficits. HEENT: Face is symmetric. Pupils are equal and reactive. Extraocular movements are intact. NECK: Supple. No JVD. No thyromegaly. No submental, submandibular, pre- /postauricular, occipital or supraclavicular lymphadenopathy. CHEST: Normal chest expansion. No Telemetry. LUNGS: Absence of any rales, rhonchi or any wheezing. CARDIOVASCULAR: Regular. S1 and S2 normal. No appreciable rubs, murmurs or gallops. ABDOMEN: Soft, nontender, and nondistended. There is no rebound, voluntary guarding, or rigidity. : Deferred. No Ba. EXTREMITIES: Non-edematous and not cyanotic. No clubbing. Good capillary refill. SKIN: No skin breakdown. Vital Signs (last 8hr) Date Time Temp Pulse Resp B/P (MAP) Pulse Ox O2 Delivery O2 Flow Rate FiO2 03/11/24 07:27 96 18 03/11/24 07:02 92 21 115/66 95 Nasal Cannula* 2 28 03/11/24 04:38 94 20 115/56 95 Nasal Cannula* 4 36 03/11/24 02:30 99 20 116/59 95 Nasal Cannula* 4 36 LABS: Laboratory: Test 03/10/24 20:51 03/10/24 16:43 03/10/24 16:18 03/10/24 14:07 Range/Units Troponin I High Sensitivity 17 4-50 ng/L Total Creatine Kinase 75 # 21-232 U/L Blood Gas Specimen Type Arterial Arterial Blood pH 7.439 7.350-7.450 Arterial Blood Partial Pressure CO2 32 32-45 mmHg Arterial Blood Partial Pressure O2 70.5 L 83.0-108.0 mmHg Arterial Blood HCO3 20.9 L 21.0-28.0 mmol/L Arterial Blood Oxygen Saturation 94.9 94.0-98.0 % Arterial Blood Base Excess -2.2 L -2.0-3.0 mmol/L Blood Gas Temperature 37.0 35.5-37.0 CELSIUS Blood Gas Flow-by 3.00 0.00-15.00 L/min Blood Gas Vent Mode NC ROOM AIR FiO2 28.0 % Blood Gas Specimen Comment LR,JOSEFA Thyroid Stimulating Hormone (TSH) 0.74 0.36-3.74 uIU/mL Test 03/10/24 11:23 03/10/24 06:19 03/10/24 02:33 03/10/24 02:21 Range/Units Whole Blood Glucose 110 70-110 MG/DL Reticulocyte Count (auto) 1.63987 0.42-2.23 % Immature Reticulocyte Fraction 18.20 H 0.18-0.48 % D-Dimer Quantitative (PE/DVT) 9939 *H 0-500 ng/mL Lactic Acid Level 2.1 0.8-2.5 mmol/L Iron Level 6 L 50-170 mcg/dL Total Iron Binding Capacity 273 250-450 mcg/dL Percent Iron Saturation 2.1 L 22-44 % Ferritin 66 15-150 ng/mL C-Reactive Protein, Quantitative 412.30 H 0.5-3.0 mg/L Albumin 2.4 L 3.5-5.0 g/dL Vitamin B12 Level 7072 H 193-986 pg/mL Folic Acid (LAB) > 20.00 H 2-20 ng/mL Procalcitonin 28.83 H 0.05-0.5 ng/mL White Blood Count 9.7 4.8-10.8 K/uL Red Blood Count 3.93 L 4.00-5.50 MIL/uL Hemoglobin 8.1 L 12.0-16.0 g/dL Hematocrit 26.3 L 36-48 % Mean Corpuscular Volume 66.9 L 79-99 fL Mean Corpuscular Hemoglobin 20.6 L 27.0-33.0 pg Mean Corpuscular Hemoglobin Concent 30.8 L 32.0-36.0 g/dL Red Cell Distribution Width 15.9 H 11.0-15.5 % Platelet Count 604 H 130-400 K/uL Mean Platelet Volume 9.9 7.5-10.5 fL Immature Granulocyte % (Auto) 0.5 0-1 % Neutrophils (%) (Auto) 88.8 H 40.0-77.0 % Lymphocytes (%) (Auto) 5.7 L 21.0-51.0 % Monocytes (%) (Auto) 4.8 3.0-13.0 % Eosinophils (%) (Auto) 0.1 0.0-8.0 % Basophils (%) (Auto) 0.1 0.0-5.0 % Neutrophils # (Auto) 8.6 H 1.8-7.7 K/uL Lymphocytes # (Auto) 0.6 L 1.0-4.8 K/uL Monocytes # (Auto) 0.5 0.1-1.0 K/uL Eosinophils # (Auto) 0.01 0.00-0.70 K/uL Basophils # (Auto) 0.01 0.00-0.20 K/uL Absolute Immature Granulocyte (auto 0.05 0-1 K/uL Nucleated Red Blood Cells 0.0 0.0-0.19 % White Cell Morphology Comment See comments Red Blood Cell Morphology See comments Sodium Level 131 L 136-145 mmol/L Potassium Level 3.1 L 3.5-5.1 mmol/L Chloride Level 92 L 101-111 mmol/L Carbon Dioxide Level 27 21-32 mmol/L Blood Urea Nitrogen 56 H 7-18 mg/dL Creatinine 1.8 H 0.5-1.0 mg/dL Glomerular Filtration Rate Calc 29 >90 mL/min Random Glucose 145 H 70-105 mg/dL Total Calcium 10.4 H 8.5-10.1 mg/dL B-Type Natriuretic Peptide 103 H 0-100 pg/mL Influenza Type A Antigen Negative For Type A NEGATIVE Influenza Type B Antigen Negative For Type B NEGATIVE SARS-CoV-2, RNA, NAAT NEGATIVE SARS CoV-2 NEGATIVE Current Medications Medications (Trade) Dose Ordered Sig/Jesus Route PRN Reason Start Time Stop Time Status Last Admin Dose Admin Acetaminophen (TYLenol 325MG TAB) 650 mg Q4H PRN PO TEMPERATURE GREATER THAN 101.5 03/10/24 07:30 04/09/24 07:29 Acetylcysteine (MUComyst 10% 4ML) 400mg = 4ml [id number] IH 03/10/24 12:00 04/09/24 11:59 03/11/24 07:23 400 MG Albuterol (DUOneb) 1 UDVIAL [id number] IH 03/10/24 12:00 04/09/24 11:59 03/11/24 07:23 1 UDVIAL Azithromycin 250 ml @ 250 mls/hr Q24H IVPB 03/10/24 05:00 03/10/24 07:39 DC 03/10/24 05:41 250 MLS/HR Azithromycin 250 ml @ 250 mls/hr Q24H IVPB 03/11/24 08:00 03/21/24 07:59 03/11/24 08:41 250 MLS/HR Budesonide (Pulmicort 0.5 Mg/2ml) 0.5 mg BIDRESP IH 03/10/24 10:30 04/09/24 10:29 03/11/24 07:24 0.5 MG Ceftriaxone Sodium (ROCEphine 1G INJ) 1 gm Q24H IVPB 03/11/24 08:00 03/10/24 10:20 DC Guaifenesin/ Dextromethorphan (RobiTUSSin DM 200/20MG 10ML) 5 ml Q4H PRN PO COUGH 03/10/24 07:30 04/09/24 07:29 Heparin Sodium (Porcine) (HEParin 5,000 UNIT VIAL) 5,000 unit Q12H SQ 03/10/24 16:30 04/09/24 16:29 03/11/24 04:35 5,000 UNIT Hydralazine HCl (APRESOLine 20MG INJ) 5 mg Q4H PRN IV ADMINISTER FOR SBP > 160 03/10/24 08:30 04/09/24 08:29 Methylprednisolone Sodium Succinate (Solu-medROL 40MG) 40 mg Q8H IVP 03/10/24 07:30 03/10/24 07:39 DC Methylprednisolone Sodium Succinate (Solu-medROL 40MG) 40 mg Q8H IVP 03/10/24 07:30 04/09/24 07:29 03/11/24 08:41 40 MG Metronidazole/ Sodium Chloride 100 ml @ 100 mls/hr Q8H IVPB 03/10/24 08:30 03/10/24 10:15 DC 03/10/24 09:36 100 MLS/HR Montelukast Sodium (SinguLAIR) 10 mg DAILY PO 03/10/24 09:00 04/09/24 08:59 03/11/24 09:24 10 MG Pantoprazole Sodium (PROTonix 40MG INJ) 40 mg DAILY IVP 03/10/24 09:00 04/09/24 08:59 03/11/24 09:24 40 MG Piperacillin Sod/ Tazobactam Sod (Zosyn 3.375gm+NS 50ml) 3.375 gm Q8H IV 03/10/24 10:30 03/20/24 10:29 03/11/24 03:53 3.375 GM Potassium Chloride 100 ml @ 100 mls/hr AD PRN IV POTASSIUM PROTOCOL 03/10/24 10:30 03/10/24 10:26 DC Potassium Chloride 100 ml @ 100 mls/hr AD PRN IV POTASSIUM PROTOCOL 03/10/24 10:30 04/09/24 10:29 Potassium Chloride (K-Dur 10meq Sr Tab) 10 meq AD PRN PO POTASSIUM PROTOCOL 03/10/24 10:30 04/09/24 10:29 Potassium Chloride (KCl 10% Elixir 20meq/15ml) 10 meq AD PRN PO POTASSIUM PROTOCOL 03/10/24 10:30 04/09/24 10:29 03/10/24 18:20 10 MEQ Sodium Chloride 1,000 ml @ 50 mls/hr Q20H IV 03/10/24 09:00 03/10/24 10:18 DC 03/10/24 09:36 50 MLS/HR DIAGNOSTICS / RADIOLOGY: [ ] ASSESSMENT: Sepsis: lactic acid 2.7, low blood pressure, RR: 27)POA acute resp failure with hypoxia POA elevated D dimer rule out PE POA Acute gastroenteritis POA ELVA most likely CRF stage III POA Microcytic anemia electrolytes derangement: Hypokalemia hyponatremia POA Failure to strive POA Acute anemia not POA PLAN: [ ] admit to [facility] automotive consultant: Pulmologist Sepsis: lactic acid 2.7, low blood pressure, RR: 27)POA acute resp failure with hypoxia POA - DuoNeb treatment with CPT, IV steroids, Oxygen supplemental to keep O2 sat above 92% - Abt's; Zosyn IV Zithromax IV; resp sputum gram stain /culture pending - IS usage while awake. - PRN: antitussive as needed for cough, Montelukast 10 mg po daily - Aspiration precaution HOB at 45 degree at all time H&H every 6 hours occult blood GI consult transfuse to keep O2 sat > 7.0 , TESt: CT chest noted acute gastroenteritis; - c diff, PCR stool, ova/parasites pending Labs: will add procalcitonin and crp. Avoid NSAIDs IV fluids at 50 mL/hour. CMP in a.m. GI soft bland diet Replace electrolytes as needed per protocol Anemia workup transfuse to keep hemoglobin above 7.0. - PT services OOB to chair , fall precautions PRN: MEDICATIONS Tylenol 650 mg po every 4 hrs for fever Zofran 4 mg IV every 6 hrs for n/v Hydralazine 5 mg IV every 4 hrs systolic pressure > 160 Supportive measures: DVT ppx, GI ppx all questions answered time spent: > 35 min Supervising MD: Dr. Betancourt c/d ATTESTATION BY PHYSICIAN I have seen and examined the patient. I reviewed the documentation, medical decision making, and treatment plan as noted by the mid-level provider above. I agree with the findings and plan of care. More Betancourt MD, ELIZABETH NP Mar 11, 2024 10:08
[2024-03-11 10:29] LABS: HEMATOCRIT 22.4 % (36-48); IMMATURE GRANULOCYTE ABSOLUTE 0.09 K/uL (0-1); LYMPHOCYTES # (AUTO) 0.2 K/uL (1.0-4.8); LYMPHOCYTES % (AUTO) 2.1 % (21.0-51.0); MEAN CORPUSCULAR HEMOGLOBIN 21.1 pg (27.0-33.0); MEAN CORPUSCULAR HGB CONC 31.3 g/dL (32.0-36.0); MEAN CORPUSCULAR VOLUME 67.7 fL (79-99); MONOCYTES # (AUTO) 0.4 K/uL (0.1-1.0); MONOCYTES % (AUTO) 3.3 % (3.0-13.0); NEUTROPHILS # (AUTO) 10.3 K/uL (1.8-7.7); NEUTROPHILS % (AUTO) 93.8 % (40.0-77.0); NUCLEATED RED BLOOD CELLS 0.2 % (0.0-0.19); PLATELET COUNT (AUTO) 538 K/uL (130-400); RED BLOOD CELL COUNT(AUTO) 3.31 MIL/uL (4.00-5.50)
[2024-03-11] MEDS: acetaMINOPHEN 325 MG TAB PO PRN (10:30)
[2024-03-11 10:41] LABS: CREATININE 1.6 mg/dL (0.5-1.0); POTASSIUM 3.3 mmol/L (3.5-5.1)
[2024-03-11 10:46] LABS: ALBUMIN 2.1 g/dL (3.5-5.0); BILIRUBIN,TOTAL 0.3 mg/dL (0.2-1.0); MAGNESIUM 2.5 mg/dL (1.80-2.40); TOTAL PROTEIN, SERUM 7.2 g/dL (6.0-8.3)
--- NOTE | 2024-03-11 11:23 | NUR ---
ORLIN FROM LAB CALLED IN A H/H OF 7.0. CALL PLACED FOR WHOMEVER IS COVERING FOR DR ALEJANDRA.
--- NOTE | 2024-03-11 11:29 | NUR ---
PT INFORMED OF NEW H/H LEVELS AND THAT WE ARE PENDING MD TO RETURN CALL
--- NOTE | 2024-03-11 11:34 | NUR ---
JUAN MANUEL BANGURA RETURNED CALL-REFER TO NEW ORDER
[2024-03-11 12:47] LABS: INR 1.01 (0.85-1.15); PROTHROMBIN TIME 10.9 SEC (9.6-11.6)
[2024-03-11 12:49] LABS: PARTIAL THROMBOPLASTIN TIME 25.4 SEC (26.3-35.5)
--- NOTE | 2024-03-11 13:42 | NUR ---
2 D ECHO: BULK SUGAR HANDLER PERFORMING BEDSIDE EXAM.
--- NOTE | 2024-03-11 14:21 | NUR ---
PER Faisal GE DEPUTY DIRECTOR OF NURSING IF HGB LESS THAN 7, YOU MAY TRANSFUSE THE 1 UNIT OF PRBC
--- NOTE | 2024-03-11 16:13 | HMCSR ---
APPROVED REPORT EXAM: Two-dimensional and M-mode echocardiogram with Doppler and color Doppler. INDICATION ICD: Shortness of breath R06.02 2D Dimensions RVDd5.1 cmLVEF(%)65.3 (>50%)LVED Vol(simp.)98.0 mL IVSd1.0 (0.7-1.1cm)FS(%)36 %LVES Vol(simp.)33.0 mL LVDd5.0 (3.8-5.6cm)LA (2D)4.2 (1.6-4.0cm)LVEF(%, simp.)66 % PWd1.1 (0.7-1.1cm)Ao Root(2D)3.1 (2.0-3.7cm)LA ESV INDEX (4CH)70.50 mL/m2 IVSs1.6 cmLVOT diam2.3 (1.8-2.4cm)LA ESV INDEX (2CH)30.80 mL/m2 LVDs3.2 (2.5-4.0cm)IVC diam1.6 cmLA ESV INDEX (BP)49.50 mL/m2 PWs1.4 cm Deformation Strain Apical 4-23.0 % Apical 2-11.0 % Apical 3-20.0 % Global Strain-17.0 % M-Mode Dimensions EPSS0.9 cm LA (MM)5.6 (1.6-4.0cm) Ao Root(MM)3.4 (2.0-3.7cm) Aortic Valve AoV VTI0.3 mAo Mean GR12.0 mmHgLVOT VTI0.23 m AMAURI (VMAX)2.8 cm2AVA (VTI) 2.8 cm2 Mitral Valve MV E Vmax94.3 cm/sDECEL Ucpf504 ms MV A Vmax45.9 cm/sP 1/2 T72 ms E/A ratio2.1MVA (PHT)3.0 cm2 TDI E/E' Prqtsy47.0E/E' Ensmzyq32.1 Medial E' Peak V6.30 cm/sLateral E' Peak V9.30 cm/s Pulmonary Valve PV VTI0.29 mPV Mean GR7 mmHg Tricuspid Valve TR Vmax2.4 m/s TR Peak GR23.0 mmHg Left Ventricle The left ventricle is normal size. GLS -17%. There is normal left ventricular wall thickness. LVEF is 65-70%. Stage II diastolic dysfunction. Right Ventricle The right ventricle is moderately dilated. The right ventricular systolic function is mildly reduced. Atria The left atrium is moderately dilated. The right atrium size is normal. Aortic Valve The aortic valve is trileaflet, sclerotic without stenosis. No aortic regurgitation is present. There is no aortic valvular stenosis. Mitral Valve The mitral valve is normal in structure. There is no mitral valve regurgitation noted. There is no mi tral valve stenosis. Tricuspid Valve The tricuspid valve is normal in structure. There is mild tricuspid valve regurgitation noted. Pulmonic Valve The pulmonary valve is normal in structure. There is no pulmonic valvular regurgitation. Great Vessels The aortic root is normal in size. The IVC is normal in size and collapses >50% with inspiration. Pericardium There is no pericardial effusion. Other Information Quality : FairRhythm : NSR Conclusion LVEF is 65-70%. Stage II diastolic dysfunction. The left atrium is moderately dilated. The right ventricle is moderately dilated. The right ventricular systolic function is mildly reduced.
--- NOTE | 2024-03-11 16:31 | NUR ---
BLOOD TRANSFUSION CONSENT JUST SIGNED BY PATIENT
--- NOTE | 2024-03-11 16:52 | NUR ---
[facility] CARD SAMPLE COLLECTED AND SENT OFF BY SALENA CHUNG.
--- NOTE | 2024-03-11 17:26 | NUR ---
GI CONSULT: JYOTI VINCENT ATMOSPHERIC CHEMIST PLACED A NM ORDER BUT HAS NOT SPOKEN TO ME/CALLED ME OF YET.
--- NOTE | 2024-03-11 17:36 | CONS ---
GASTROENTEROLOGY CONSULTATION NOTE Date of Consultation: Mar 11, 2024 Time of Consultation: 17:36 History of Present Illness: This is a 78-year-old with past medical history of hyperlipidemia and hypertension who presented due to nausea, vomiting and diarrhea. She does report the diarrhea subsided. She stated that an park and most residents were having similar symptoms. Hemoglobin trended down to 7, MCV 67.7 with a platelet count of 538 and INR 1.01. FOBT was negative. Chest CT revealing moderate hiatal hernia. D-dimer 9939. Review of Systems: CONSTITUTIONAL: No malaise or change in sensation of wellbeing. ENMT: No rhinorrhea, otorrhea, sinus pain, ear ache. CARDIOVASCULAR: No angina, palpitations, orthopnea or paroxysmal dyspnea. RESPIRATORY: No SOB. GASTROINTESTINAL: No abdominal pain, nausea, vomiting, diarrhea, hematemesis, melena or change in the patient's habitual bowel movements consistency/number. GENITOURINARY: No dysuria, hematuria or change in bladder continence. MUSCULOSKELETAL: No new muscle pain or decrease in muscular strength. No new joint swelling, redness or tenderness. SKIN: No new rash. Past Medical History: [ ] Past Surgical History: [ ] Past Social History: [ ] Family History: [ ] Coded Allergies: No Known Allergies (Unverified Allergy, Unknown, 03/10/24) Physical Exam: GEN: Awake, alert, oriented in person, time and place, and in no acute distress. HEENT: No sinus tenderness. Tympanic membranes were not examined. No rhinorrhea. Oral pharyngeal mucosa is pink, moist and within normal limits. Neck is supple with no cervical lymphadenopathy, thyromegaly or JVD. CHEST: Inspection, palpation and percussion of the chest were unremarkable. Lung auscultation revealed normal breath sounds bilaterally. CARDIAC: PMI is within normal limits. Heart sounds are regular. Normal S1, S2. No gallop or murmur. ABD: Soft, non-tender and not distended. No peritoneal signs on palpation. No organomegaly. Normal bowel sounds. EXT: No cyanosis or clubbing. No edema. SKIN: Intact. No rashes. JOINTS: No evidence of synovitis or acute arthritis. NEURO: Alert and oriented to name, place and person. Cranial nerve examination is unremarkable. No focal motor deficits. Normal speech. Gait is normal. Strength is normal. Vital Sign (Last 24 Hours) 11/12/24 17:17 Temp 98.2 Pulse 96 Resp 20 B/P (MAP) 133/69 Pulse Ox 94 O2 Delivery Nasal Cannula* O2 Flow Rate 2 FiO2 28 Laboratory: [ ] Laboratory: Test 03/11/24 16:49 03/11/24 10:23 03/10/24 20:51 03/10/24 16:43 Range/Units Stool Occult Blood NEGATIVE NEGATIVE White Blood Count 11.0 H 4.8-10.8 K/uL Red Blood Count 3.31 L 4.00-5.50 MIL/uL Hemoglobin 7.0 *L 12.0-16.0 g/dL Hematocrit 22.4 L 36-48 % Mean Corpuscular Volume 67.7 L 79-99 fL Mean Corpuscular Hemoglobin 21.1 L 27.0-33.0 pg Mean Corpuscular Hemoglobin Concent 31.3 L 32.0-36.0 g/dL Red Cell Distribution Width 16.0 H 11.0-15.5 % Platelet Count 538 H 130-400 K/uL Mean Platelet Volume 9.6 7.5-10.5 fL Immature Granulocyte % (Auto) 0.8 0-1 % Neutrophils (%) (Auto) 93.8 H 40.0-77.0 % Lymphocytes (%) (Auto) 2.1 L 21.0-51.0 % Monocytes (%) (Auto) 3.3 3.0-13.0 % Eosinophils (%) (Auto) 0.0 0.0-8.0 % Basophils (%) (Auto) 0.0 0.0-5.0 % Neutrophils # (Auto) 10.3 H 1.8-7.7 K/uL Lymphocytes # (Auto) 0.2 L 1.0-4.8 K/uL Monocytes # (Auto) 0.4 0.1-1.0 K/uL Eosinophils # (Auto) 0.00 0.00-0.70 K/uL Basophils # (Auto) 0.00 0.00-0.20 K/uL Absolute Immature Granulocyte (auto 0.09 0-1 K/uL Nucleated Red Blood Cells 0.2 H 0.0-0.19 % Prothrombin Time 10.9 9.6-11.6 SEC Prothromb Time International Ratio 1.01 0.85-1.15 Activated Partial Thromboplast Time 25.4 L 26.3-35.5 SEC Sodium Level 141 136-145 mmol/L Potassium Level 3.3 L 3.5-5.1 mmol/L Chloride Level 102 101-111 mmol/L Carbon Dioxide Level 26 21-32 mmol/L Blood Urea Nitrogen 65 H 7-18 mg/dL Creatinine 1.6 H 0.5-1.0 mg/dL Glomerular Filtration Rate Calc 33 >90 mL/min Random Glucose 179 H 70-105 mg/dL Total Calcium 9.1 8.5-10.1 mg/dL Magnesium Level 2.50 H 1.80-2.40 mg/dL Total Bilirubin 0.3 0.2-1.0 mg/dL Aspartate Amino Transf (AST/SGOT) 16 10-37 U/L Alanine Aminotransferase (ALT/SGPT) 17 12-78 U/L Alkaline Phosphatase 72 50-136 U/L Total Protein 7.2 6.0-8.3 g/dL Albumin 2.1 L 3.5-5.0 g/dL Troponin I High Sensitivity 17 4-50 ng/L Total Creatine Kinase 75 # 21-232 U/L Test 03/10/24 16:18 03/10/24 14:07 03/10/24 11:23 03/10/24 06:19 Range/Units Blood Gas Specimen Type Arterial Arterial Blood pH 7.439 7.350-7.450 Arterial Blood Partial Pressure CO2 32 32-45 mmHg Arterial Blood Partial Pressure O2 70.5 L 83.0-108.0 mmHg Arterial Blood HCO3 20.9 L 21.0-28.0 mmol/L Arterial Blood Oxygen Saturation 94.9 94.0-98.0 % Arterial Blood Base Excess -2.2 L -2.0-3.0 mmol/L Blood Gas Temperature 37.0 35.5-37.0 CELSIUS Blood Gas Flow-by 3.00 0.00-15.00 L/min Blood Gas Vent Mode NC ROOM AIR FiO2 28.0 % Blood Gas Specimen Comment LR,JOSEFA Thyroid Stimulating Hormone (TSH) 0.74 0.36-3.74 uIU/mL Whole Blood Glucose 110 70-110 MG/DL Reticulocyte Count (auto) 1.00462 0.42-2.23 % Immature Reticulocyte Fraction 18.20 H 0.18-0.48 % D-Dimer Quantitative (PE/DVT) 9939 *H 0-500 ng/mL Lactic Acid Level 2.1 0.8-2.5 mmol/L Iron Level 6 L 50-170 mcg/dL Total Iron Binding Capacity 273 250-450 mcg/dL Percent Iron Saturation 2.1 L 22-44 % Ferritin 66 15-150 ng/mL C-Reactive Protein, Quantitative 412.30 H 0.5-3.0 mg/L Vitamin B12 Level 7072 H 193-986 pg/mL Folic Acid (LAB) > 20.00 H 2-20 ng/mL Procalcitonin 28.83 H 0.05-0.5 ng/mL Test 03/10/24 02:33 03/10/24 02:21 Range/Units White Cell Morphology Comment See comments Red Blood Cell Morphology See comments B-Type Natriuretic Peptide 103 H 0-100 pg/mL Influenza Type A Antigen Negative For Type A NEGATIVE Influenza Type B Antigen Negative For Type B NEGATIVE SARS-CoV-2, RNA, NAAT NEGATIVE SARS CoV-2 NEGATIVE Current Medications Medications (Trade) Dose Ordered Sig/Jesus Route PRN Reason Start Time Stop Time Status Last Admin Dose Admin Acetaminophen (TYLenol 325MG TAB) 650 mg Q4H PRN PO TEMPERATURE GREATER THAN 101.5 03/10/24 07:30 04/09/24 07:29 03/11/24 10:30 650 MG Acetylcysteine (MUComyst 10% 4ML) 400mg = 4ml [id number] 03/10/24 12:00 04/09/24 11:59 03/11/24 10:39 400 MG Albuterol (DUOneb) 1 UDVIAL [id number] 03/10/24 12:00 04/09/24 11:59 03/11/24 10:39 1 UDVIAL Azithromycin 250 ml @ 250 mls/hr Q24H IVPB 03/10/24 05:00 03/10/24 07:39 DC 03/10/24 05:41 250 MLS/HR Azithromycin 250 ml @ 250 mls/hr Q24H IVPB 03/11/24 08:00 03/21/24 07:59 03/11/24 08:41 250 MLS/HR Budesonide (Pulmicort 0.5 Mg/2ml) 0.5 mg BIDRESP 03/10/24 10:30 04/09/24 10:29 03/11/24 07:24 0.5 MG Ceftriaxone Sodium (ROCEphine 1G INJ) 1 gm Q24H IVPB 03/11/24 08:00 03/10/24 10:20 DC Guaifenesin/ Dextromethorphan (RobiTUSSin DM 200/20MG 10ML) 5 ml Q4H PRN PO COUGH 03/10/24 07:30 04/09/24 07:29 Heparin Sodium (Porcine) (HEParin 5,000 UNIT VIAL) 5,000 unit Q12H SQ 03/10/24 16:30 04/09/24 16:29 03/11/24 04:35 5,000 UNIT Hydralazine HCl (APRESOLine 20MG INJ) 5 mg Q4H PRN IV ADMINISTER FOR SBP > 160 03/10/24 08:30 04/09/24 08:29 Methylprednisolone Sodium Succinate (Solu-medROL 40MG) 40 mg Q8H IVP 03/10/24 07:30 03/10/24 07:39 DC Methylprednisolone Sodium Succinate (Solu-medROL 40MG) 40 mg Q8H IVP 03/10/24 07:30 04/09/24 07:29 03/11/24 16:00 40 MG Metronidazole/ Sodium Chloride 100 ml @ 100 mls/hr Q8H IVPB 03/10/24 08:30 03/10/24 10:15 DC 03/10/24 09:36 100 MLS/HR Montelukast Sodium (SinguLAIR) 10 mg DAILY PO 03/10/24 09:00 04/09/24 08:59 03/11/24 09:24 10 MG Pantoprazole Sodium (PROTonix 40MG INJ) 40 mg DAILY IVP 03/10/24 09:00 04/09/24 08:59 03/11/24 09:24 40 MG Piperacillin Sod/ Tazobactam Sod (Zosyn 3.375gm+NS 50ml) 3.375 gm Q8H IV 03/10/24 10:30 03/20/24 10:29 03/11/24 10:50 3.375 GM Potassium Chloride 100 ml @ 100 mls/hr AD PRN IV POTASSIUM PROTOCOL 03/10/24 10:30 03/10/24 10:26 DC Potassium Chloride 100 ml @ 100 mls/hr AD PRN IV POTASSIUM PROTOCOL 03/10/24 10:30 04/09/24 10:29 Potassium Chloride (K-Dur 10meq Sr Tab) 10 meq AD PRN PO POTASSIUM PROTOCOL 03/10/24 10:30 04/09/24 10:29 Potassium Chloride (KCl 10% Elixir 20meq/15ml) 10 meq AD PRN PO POTASSIUM PROTOCOL 03/10/24 10:30 04/09/24 10:29 03/10/24 18:20 10 MEQ Sodium Chloride 1,000 ml @ 50 mls/hr Q20H IV 03/10/24 09:00 03/10/24 10:18 DC 03/10/24 09:36 50 MLS/HR Diagnostics / Radiology: [COPY/PASTE HERE IF NO REPORTS PLEASE DELETE SECTION] Assessment: Hiatal hernia MICHAEL Plan: Plan for EGD pending clinical evolution JYOTI TRAVIS TECHNICAL DOCUMENT WRITER Mar 11, 2024 17:36
[2024-03-11 18:07] LABS: HEMATOCRIT 20.8 % (36-48)
--- NOTE | 2024-03-11 19:10 | NUR ---
PER NUCLEAR MED TECH-EXAM WILL BE DONE TOMORROW
--- NOTE | 2024-03-11 19:33 | NUR ---
REPORT ENDORSED TO GUIDO BRADEN RN. BLOOD PAPERWORK ALSO ENDORSED
--- NOTE | 2024-03-11 23:29 | PN ---
[facility] PROGRESS NOTE Date Patient Seen: Mar 11, 2024 Time of Visit: 23:29 Supervising Physician: [Dr. Galindo] Consulting Physician: [facility] Outpatient Specialists: [ ] Inpatient Consults: [ ] PROBLEM LIST: Acute gastroenteritis, POA Acute blood loss anemia, POA Hematemesis, POA Acute hypoxic respiratory failure, negative for COVID and flu CT chest (-) for acute infiltrate, POA Possible ROSEMARIE, POA Hypertension, POA Hyperlipidemia, POA Microcytic anemia, POA Hyponatremia, POA Hypokalemia, POA Acute kidney injury, POA PLAN: GI workup per primary Continue O2 therapy Keep O2 saturation above 90% Keep head of bed above 30 DuoNeb q.6 as needed for shortness of breaths Complete bedrest for now Incentive spirometry Bilateral SCDs Obtain 2D echo Obtain UA Anticoagulation management per primary Obtain V/Q scan CBC, CMP, magnesium level daily INTERVAL HISTORY: [Patient is evaluated in the ED with at bedside. Her hgb has dropped from 9.1 to 7.0. Did have N/V and diarrhea on admission but states none today. She did report hematemesis. Pending GI consult per primary. She continues on 2LNC. Patient admits sick contacts at [place] park.] REVIEW OF SYSTEMS: 12 point ROS reviewed with patient. Pertinent positives mentioned above. Otherwise negative. PHYSICAL EXAM: GENERAL: alert, weak, awake oriented x 3 HEENT: EOMI, Sclera non icteric, moist mucosa NECK: Supple, no JVD, trachea midline LUNGS: Clear breath sounds bilaterally. Diminished bibasilar area HEART: Regular rate and rhythm. Normal S1 and S2, without murmurs ABD: Large body habitus EXT: No clubbing cyanosis 3+ pitting edema NEURO: Alert and oriented to person, follows commands Vital Signs (last 8hr) Date Time Temp Pulse Resp B/P (MAP) Pulse Ox O2 Delivery O2 Flow Rate FiO2 03/11/24 23:18 97 18 03/11/24 20:00 98.2 93 18 128/76 96 Room Air 03/11/24 19:14 96 20 N/Cannula Low lpm 2.0 28 03/11/24 19:14 94 18 03/11/24 17:17 98.2 96 20 133/69 94 Nasal Cannula* 2 28 LABS: Hematology Labs: Test 03/11/24 17:59 03/11/24 10:23 03/10/24 06:19 03/10/24 02:33 Range/Units Hemoglobin 6.4 *L 12.0-16.0 g/dL Hematocrit 20.8 *L 36-48 % White Blood Count 11.0 H 4.8-10.8 K/uL Red Blood Count 3.31 L 4.00-5.50 MIL/uL Mean Corpuscular Volume 67.7 L 79-99 fL Mean Corpuscular Hemoglobin 21.1 L 27.0-33.0 pg Mean Corpuscular Hemoglobin Concent 31.3 L 32.0-36.0 g/dL Red Cell Distribution Width 16.0 H 11.0-15.5 % Platelet Count 538 H 130-400 K/uL Mean Platelet Volume 9.6 7.5-10.5 fL Immature Granulocyte % (Auto) 0.8 0-1 % Neutrophils (%) (Auto) 93.8 H 40.0-77.0 % Lymphocytes (%) (Auto) 2.1 L 21.0-51.0 % Monocytes (%) (Auto) 3.3 3.0-13.0 % Eosinophils (%) (Auto) 0.0 0.0-8.0 % Basophils (%) (Auto) 0.0 0.0-5.0 % Neutrophils # (Auto) 10.3 H 1.8-7.7 K/uL Lymphocytes # (Auto) 0.2 L 1.0-4.8 K/uL Monocytes # (Auto) 0.4 0.1-1.0 K/uL Eosinophils # (Auto) 0.00 0.00-0.70 K/uL Basophils # (Auto) 0.00 0.00-0.20 K/uL Absolute Immature Granulocyte (auto 0.09 0-1 K/uL Nucleated Red Blood Cells 0.2 H 0.0-0.19 % Reticulocyte Count (auto) 1.27891 0.42-2.23 % Immature Reticulocyte Fraction 18.20 H 0.18-0.48 % White Cell Morphology Comment See comments Red Blood Cell Morphology See comments Chemistry Labs: Test 03/11/24 10:23 03/10/24 20:51 03/10/24 16:43 03/10/24 14:07 Range/Units Sodium Level 141 136-145 mmol/L Potassium Level 3.3 L 3.5-5.1 mmol/L Chloride Level 102 101-111 mmol/L Carbon Dioxide Level 26 21-32 mmol/L Blood Urea Nitrogen 65 H 7-18 mg/dL Creatinine 1.6 H 0.5-1.0 mg/dL Glomerular Filtration Rate Calc 33 >90 mL/min Random Glucose 179 H 70-105 mg/dL Total Calcium 9.1 8.5-10.1 mg/dL Magnesium Level 2.50 H 1.80-2.40 mg/dL Total Bilirubin 0.3 0.2-1.0 mg/dL Aspartate Amino Transf (AST/SGOT) 16 10-37 U/L Alanine Aminotransferase (ALT/SGPT) 17 12-78 U/L Alkaline Phosphatase 72 50-136 U/L Total Protein 7.2 6.0-8.3 g/dL Albumin 2.1 L 3.5-5.0 g/dL Troponin I High Sensitivity 17 4-50 ng/L Total Creatine Kinase 75 # 21-232 U/L Thyroid Stimulating Hormone (TSH) 0.74 0.36-3.74 uIU/mL Test 03/10/24 11:23 03/10/24 06:19 03/10/24 02:33 Range/Units Whole Blood Glucose 110 70-110 MG/DL Lactic Acid Level 2.1 0.8-2.5 mmol/L Iron Level 6 L 50-170 mcg/dL Total Iron Binding Capacity 273 250-450 mcg/dL Percent Iron Saturation 2.1 L 22-44 % Ferritin 66 15-150 ng/mL C-Reactive Protein, Quantitative 412.30 H 0.5-3.0 mg/L Vitamin B12 Level 7072 H 193-986 pg/mL Folic Acid (LAB) > 20.00 H 2-20 ng/mL Procalcitonin 28.83 H 0.05-0.5 ng/mL B-Type Natriuretic Peptide 103 H 0-100 pg/mL Coagulation Labs: Test 03/11/24 10:23 03/10/24 06:19 Range/Units Prothrombin Time 10.9 9.6-11.6 SEC Prothromb Time International Ratio 1.01 0.85-1.15 Activated Partial Thromboplast Time 25.4 L 26.3-35.5 SEC D-Dimer Quantitative (PE/DVT) 9939 *H 0-500 ng/mL DIAGNOSTICS / RADIOLOGY RESULTS: [CT CHEST W/O CONTRAST REASON: rule out mass/pneumonia hypoxic resp failure COMPARISON: None. TECHNIQUE: Multiple sequential axial images of the chest were obtained from the thoracic inlet through the upper pole of the kidneys without intravenous contrast administration. FINDINGS: Lungs are clear. There are no focal masses or infiltrates. There is normal-appearing pulmonary interstitial pattern. Heart size is borderline. There is no vascular congestion or pleural effusion. There is no hilar or mediastinal lymphadenopathy. There is a moderate hiatal hernia. Stomach is fluid-filled and mildly distended. Gallbladder is absent. Upper abdominal structures appear otherwise unremarkable. IMPRESSION: 1. Moderate hiatal hernia, the stomach is diffusely filled with fluid 2. Otherwise unremarkable noncontrast CT chest.] PLAN NEURO: Minimize central acting medications as possible. Maintain fall precautions, adequate lighting during the day PULMONARY: Supplemental 02 as needed. Maintain aspiration precautions at all times CARDIOVASCULAR: Follow hemodynamics. Vital signs per facility protocol GI & NUTRITION: Continue with nutritional support. Continue stool softeners and laxatives as needed. KIDNEYS & ELECTROLYTES: Strict monitoring of intake, output and overall fluid balance. Avoid nephrotoxic medications to the extent possible. Medications to be dosed according to renal function. Monitor electrolytes and replace as needed ENDOCRINE: Maintain blood glucose between 100-180 at all times. Hypoglycemia protocol in place INFECTIOUS DISEASE: Trend temperature, WBC and procalcitonin level Follow cultures, deescalate antibiotics as soon as possible. Panculture if new onset fever ONCOLOGY/HEMATOLOGY/COAGULATION: Monitor for s/s of bleeding Monitor hemoglobin, coagulation studies as needed SKIN: Pressure ulcer prevention per facility protocol Specialty mattress ORTHO/REHAB: Continue PT/OT Prophylaxis: Continue GI and DVT prophylaxis Code Status: Full Resuscitation Disposition: TBD Other: Total patient care time exceeds 35 minutes excluding all procedures. BRUCE BARRY Mar 11, 2024 23:29
[2024-03-12] VITALS (14 sets, daily range): BP systolic 132–139; BP diastolic 59–77; PULSE 83–105; RESP 17–22; TEMP 97.8–98.6; O2SAT 93–96
--- NOTE | 2024-03-12 | NUR ---
OXYGEN Patient ambulated to restroom, refusing bedside commode, states she needs to go now. Oxygen on room air is 84%. Educated on fall risk precautions due to low oxygen levels and importance of bedside commode, verbalized understanding. 95% oxygen with 2 liters nasal cannula.
[2024-03-12 00:54] LABS: HEMATOCRIT 22.5 % (36-48)
[2024-03-12 06:50] LABS: HEMATOCRIT 25.9 % (36-48)
--- NOTE | 2024-03-12 06:50 | EKG ---
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 : 1945 Requested By: ALLY MASON Order Number: [id number] Reading MD: Emmett Slater Measurements Intervals [place] Rate: 97 P: 236 NC: 170 QRS: 63 QRSD: 146 T: 7 QT: 390 QTc: 492 Interpretive Statements Sinus or ectopic atrial rhythm Multiple premature complexes, vent & supraven Right bundle branch block Compared to ECG 03/10/2024 10:25:24 Ectopic atrial rhythm now present Sinus tachycardia no longer present Atrial premature complex(es) no longer present Electronically Signed On 03-13-2024 18:57:37 REGIONAL CLINICAL DIRECTOR by Emmett Slater Please click the below link to view image of tracing.
--- NOTE | 2024-03-12 09:11 | PN ---
[facility] PROGRESS NOTE Date of Service: Mar 12, 2024 Time of Service: 09:10 SUBJECTIVE: [ ] This is a 78-year-old female that presents in ED with chief complaints of persistent cough nausea and vomiting and diarrhea. Onset for one-week. She reports that [place] and most acquaintances have similar symptoms. She reports diarrhea subsided. She denies fever chills. However, continues with dyspnea with minimal exertion and productive cough and decided to come ED for further evaluation. March 11, 2024 patient is seen and examined earlier this morning. Reviewed chart imaging. Patient with a low H&H 7.0 patient is asymptomatic we will get H&H every 6 hours this morning reports no active bleeding. However she did have severe diarrhea prior to this admission. Occult stool blood and consult GI patient is doing much better today compared to yesterday. On nasal cannula 2 L physical therapy to ambulate patient we will going to attempt to titrate oxygen. 03/12/24 patient is seen and examined with Dr. partida. Patient was sitting on the edge of the bed patient continues on oxygen supplemental we will titrate as tolerated. Physical therapy to work with patient. Status post blood transfusion 1 unit hemoglobin this morning 7.9. Occult blood negative GI on board we will also consult Hematology labs: flow cytometry /anemia workup done. REVIEW OF SYSTEMS CONSTITUTIONAL: Denies fevers, chills, or night sweats. No unintentional weight loss reported. NEUROLOGICAL: Denies headache, amaurosis fugax, motor weakness, sensory deficit, vertigo/spinning sensation, gait abnormalities, or tremors. ENT: No hearing loss, otalgia, otorrhea, rhinitis, rhinorrhea, hoarseness, or sore throat. CARDIOVASCULAR: Denies any exertional angina, dyspnea on exertion, orthopnea, paroxysmal nocturnal dyspnea, palpitations, life-threatening arrhythmias, claudication. PULMONARY: Denies any shortness of breath, cough, phlegm/sputum, hemoptysis, pleuritic chest pain. SLEEP: Denies morning headaches, daytime somnolence or napping. Denies difficulty falling asleep, staying asleep, waking from sleep. Denies knowledge of snoring. GASTROINTESTINAL: Denies any type of dysphagia to either liquids or solids. Denies nausea, vomiting, pyrosis, early satiety, abdominal pain, diarrhea, constipation, or changes in stool consistency or caliber. Denies coffee-ground emesis, hematemesis, hematochezia, or melanotic stools. GENITOURINARY: Denies frequency, urgency, nocturia, hematuria or incontinence (Storage/Irritative symptoms.) Low urinary stream, straining to void, urinary intermittency or hesitancy, splitting of the voiding stream, terminal dribbling. ENDOCRINOLOGIC: Denies polyuria, polydipsia, polyphagia or heat/cold intolerances. HEMATOLOGIC: Denies thrombophilia/previous clots, or coagulopathy/bleeding disorders. ONCOLOGIC: Denies personal history of malignancy. DERMATOLOGIC: Denies rashes or pruritus. PSYCHIATRIC: Denies any suicidal or homicidal ideation. Denies hallucinations. PHYSICAL EXAM GENERAL APPEARANCE: The patient is awake, alert, and oriented, in no acute cardiopulmonary distress. NEUROLOGICAL: Cranial nerves II-XII grossly intact. Motor is 5/5 in bilateral upper and lower extremities proximal to distal. No sensory deficits. HEENT: Face is symmetric. Pupils are equal and reactive. Extraocular movements are intact. NECK: Supple. No JVD. No thyromegaly. No submental, submandibular, pre- /postauricular, occipital or supraclavicular lymphadenopathy. CHEST: Normal chest expansion. No Telemetry. LUNGS: Absence of any rales, rhonchi or any wheezing. CARDIOVASCULAR: Regular. S1 and S2 normal. No appreciable rubs, murmurs or gallops. ABDOMEN: Soft, nontender, and nondistended. There is no rebound, voluntary guarding, or rigidity. : Deferred. No Ba. EXTREMITIES: Non-edematous and not cyanotic. No clubbing. Good capillary refill. SKIN: No skin breakdown. Vital Signs (last 8hr) Date Time Temp Pulse Resp B/P (MAP) Pulse Ox O2 Delivery O2 Flow Rate FiO2 03/12/24 07:52 97.9 105 19 132/69 93 Nasal Cannula 2.0 03/12/24 06:36 98 20 03/12/24 06:34 98 20 N/Cannula Low lpm 2.0 28 03/12/24 05:02 98.6 100 19 136/59 98 Nasal Cannula 2.0 24 LABS: Laboratory: Test 03/12/24 06:45 03/11/24 16:49 03/11/24 10:23 03/10/24 20:51 Range/Units Hemoglobin 7.9 L 12.0-16.0 g/dL Hematocrit 25.9 L 36-48 % Stool Occult Blood NEGATIVE NEGATIVE White Blood Count 11.0 H 4.8-10.8 K/uL Red Blood Count 3.31 L 4.00-5.50 MIL/uL Mean Corpuscular Volume 67.7 L 79-99 fL Mean Corpuscular Hemoglobin 21.1 L 27.0-33.0 pg Mean Corpuscular Hemoglobin Concent 31.3 L 32.0-36.0 g/dL Red Cell Distribution Width 16.0 H 11.0-15.5 % Platelet Count 538 H 130-400 K/uL Mean Platelet Volume 9.6 7.5-10.5 fL Immature Granulocyte % (Auto) 0.8 0-1 % Neutrophils (%) (Auto) 93.8 H 40.0-77.0 % Lymphocytes (%) (Auto) 2.1 L 21.0-51.0 % Monocytes (%) (Auto) 3.3 3.0-13.0 % Eosinophils (%) (Auto) 0.0 0.0-8.0 % Basophils (%) (Auto) 0.0 0.0-5.0 % Neutrophils # (Auto) 10.3 H 1.8-7.7 K/uL Lymphocytes # (Auto) 0.2 L 1.0-4.8 K/uL Monocytes # (Auto) 0.4 0.1-1.0 K/uL Eosinophils # (Auto) 0.00 0.00-0.70 K/uL Basophils # (Auto) 0.00 0.00-0.20 K/uL Absolute Immature Granulocyte (auto 0.09 0-1 K/uL Nucleated Red Blood Cells 0.2 H 0.0-0.19 % Prothrombin Time 10.9 9.6-11.6 SEC Prothromb Time International Ratio 1.01 0.85-1.15 Activated Partial Thromboplast Time 25.4 L 26.3-35.5 SEC Sodium Level 141 136-145 mmol/L Potassium Level 3.3 L 3.5-5.1 mmol/L Chloride Level 102 101-111 mmol/L Carbon Dioxide Level 26 21-32 mmol/L Blood Urea Nitrogen 65 H 7-18 mg/dL Creatinine 1.6 H 0.5-1.0 mg/dL Glomerular Filtration Rate Calc 33 >90 mL/min Random Glucose 179 H 70-105 mg/dL Total Calcium 9.1 8.5-10.1 mg/dL Magnesium Level 2.50 H 1.80-2.40 mg/dL Total Bilirubin 0.3 0.2-1.0 mg/dL Aspartate Amino Transf (AST/SGOT) 16 10-37 U/L Alanine Aminotransferase (ALT/SGPT) 17 12-78 U/L Alkaline Phosphatase 72 50-136 U/L Total Protein 7.2 6.0-8.3 g/dL Albumin 2.1 L 3.5-5.0 g/dL Troponin I High Sensitivity 17 4-50 ng/L Test 03/10/24 16:43 03/10/24 16:18 03/10/24 14:07 03/10/24 11:23 Range/Units Total Creatine Kinase 75 # 21-232 U/L Blood Gas Specimen Type Arterial Arterial Blood pH 7.439 7.350-7.450 Arterial Blood Partial Pressure CO2 32 32-45 mmHg Arterial Blood Partial Pressure O2 70.5 L 83.0-108.0 mmHg Arterial Blood HCO3 20.9 L 21.0-28.0 mmol/L Arterial Blood Oxygen Saturation 94.9 94.0-98.0 % Arterial Blood Base Excess -2.2 L -2.0-3.0 mmol/L Blood Gas Temperature 37.0 35.5-37.0 CELSIUS Blood Gas Flow-by 3.00 0.00-15.00 L/min Blood Gas Vent Mode NC ROOM AIR FiO2 28.0 % Blood Gas Specimen Comment LR,JOSEFA Thyroid Stimulating Hormone (TSH) 0.74 0.36-3.74 uIU/mL Whole Blood Glucose 110 70-110 MG/DL Current Medications Medications (Trade) Dose Ordered Sig/Jesus Route PRN Reason Start Time Stop Time Status Last Admin Dose Admin Acetaminophen (TYLenol 325MG TAB) 650 mg Q4H PRN PO TEMPERATURE GREATER THAN 101.5 03/10/24 07:30 04/09/24 07:29 03/11/24 10:30 650 MG Acetylcysteine (MUComyst 10% 4ML) 400mg = 4ml [id number] IH 03/10/24 12:00 04/09/24 11:59 03/12/24 06:35 400 MG Albuterol (DUOneb) 1 UDVIAL [id number] IH 03/10/24 12:00 04/09/24 11:59 03/12/24 06:35 1 UDVIAL Azithromycin 250 ml @ 250 mls/hr Q24H IVPB 03/10/24 05:00 03/10/24 07:39 DC 03/10/24 05:41 250 MLS/HR Azithromycin 250 ml @ 250 mls/hr Q24H IVPB 03/11/24 08:00 03/21/24 07:59 03/12/24 08:13 250 MLS/HR Budesonide (Pulmicort 0.5 Mg/2ml) 0.5 mg BIDRESP IH 03/10/24 10:30 04/09/24 10:29 03/12/24 06:35 0.5 MG Ceftriaxone Sodium (ROCEphine 1G INJ) 1 gm Q24H IVPB 03/11/24 08:00 03/10/24 10:20 DC Guaifenesin/ Dextromethorphan (RobiTUSSin DM 200/20MG 10ML) 5 ml Q4H PRN PO COUGH 03/10/24 07:30 04/09/24 07:29 Heparin Sodium (Porcine) (HEParin 5,000 UNIT VIAL) 5,000 unit Q12H SQ 03/10/24 16:30 04/09/24 16:29 03/11/24 04:35 5,000 UNIT Hydralazine HCl (APRESOLine 20MG INJ) 5 mg Q4H PRN IV ADMINISTER FOR SBP > 160 03/10/24 08:30 04/09/24 08:29 Methylprednisolone Sodium Succinate (Solu-medROL 40MG) 40 mg Q8H IVP 03/10/24 07:30 03/10/24 07:39 DC Methylprednisolone Sodium Succinate (Solu-medROL 40MG) 40 mg Q8H IVP 03/10/24 07:30 04/09/24 07:29 03/12/24 08:13 40 MG Metronidazole/ Sodium Chloride 100 ml @ 100 mls/hr Q8H IVPB 03/10/24 08:30 03/10/24 10:15 DC 03/10/24 09:36 100 MLS/HR Montelukast Sodium (SinguLAIR) 10 mg DAILY PO 03/10/24 09:00 04/09/24 08:59 03/11/24 09:24 10 MG Pantoprazole Sodium (PROTonix 40MG INJ) 40 mg DAILY IVP 03/10/24 09:00 04/09/24 08:59 03/12/24 08:13 40 MG Piperacillin Sod/ Tazobactam Sod (Zosyn 3.375gm+NS 50ml) 3.375 gm Q8H IV 03/10/24 10:30 03/20/24 10:29 03/12/24 02:36 3.375 GM Potassium Chloride 100 ml @ 100 mls/hr AD PRN IV POTASSIUM PROTOCOL 03/10/24 10:30 03/10/24 10:26 DC Potassium Chloride 100 ml @ 100 mls/hr AD PRN IV POTASSIUM PROTOCOL 03/10/24 10:30 04/09/24 10:29 Potassium Chloride (K-Dur 10meq Sr Tab) 10 meq AD PRN PO POTASSIUM PROTOCOL 03/10/24 10:30 04/09/24 10:29 Potassium Chloride (KCl 10% Elixir 20meq/15ml) 10 meq AD PRN PO POTASSIUM PROTOCOL 03/10/24 10:30 04/09/24 10:29 03/10/24 18:20 10 MEQ Sodium Chloride 1,000 ml @ 50 mls/hr Q20H IV 03/10/24 09:00 03/10/24 10:18 DC 03/10/24 09:36 50 MLS/HR DIAGNOSTICS / RADIOLOGY: [ ] ASSESSMENT: Sepsis: lactic acid 2.7, low blood pressure, RR: 27)POA acute resp failure with hypoxia POA elevated D dimer rule out PE POA Acute gastroenteritis POA ELVA most likely CRF stage III POA Microcytic anemia electrolytes derangement: Hypokalemia hyponatremia POA Failure to strive POA Acute anemia not POA PLAN: [ ] admit to [facility] biometrics consultant: Pulmologist Sepsis: lactic acid 2.7, low blood pressure, RR: 27)POA acute resp failure with hypoxia POA - DuoNeb treatment with CPT, IV steroids, Oxygen supplemental to keep O2 sat above 92% - Abt's; Zosyn IV Zithromax IV; resp sputum gram stain /culture pending - IS usage while awake. - PRN: antitussive as needed for cough, Montelukast 10 mg po daily - Aspiration precaution HOB at 45 degree at all time H&H every 6 hours occult blood GI consult status post blood transfusion today hemoglobin 7.9 Occult blood negative transfuse to keep O2 sat > 7.0 , Hematology consulted: flow cytometry and anemia panel acute gastroenteritis; - c diff, PCR stool, ova/parasites pending Avoid NSAIDs creatinine improved GI soft bland diet Replace electrolytes as needed per protocol - PT services OOB to chair , fall precautions PRN: MEDICATIONS Tylenol 650 mg po every 4 hrs for fever Zofran 4 mg IV every 6 hrs for n/v Hydralazine 5 mg IV every 4 hrs systolic pressure > 160 Supportive measures: DVT ppx, GI ppx all questions answered Supervising MD: Dr. Byers c/d ATTESTATION BY PHYSICIAN I have seen and examined the patient. I reviewed the documentation, medical decision making, and treatment plan as noted by the mid-level provider above. I agree with the findings and plan of care. CHANELLE BYERS MD, ELIZABETH NP Mar 12, 2024 09:11
[2024-03-12 09:25] LABS: CREATININE 1.1 mg/dL (0.5-1.0); POTASSIUM 3.9 mmol/L (3.5-5.1)
[2024-03-12 09:29] LABS: ALBUMIN 2.1 g/dL (3.5-5.0); BILIRUBIN,TOTAL 0.3 mg/dL (0.2-1.0); MAGNESIUM 2.6 mg/dL (1.80-2.40)
--- NOTE | 2024-03-12 11:28 | PN ---
GASTROENTEROLOGY PROGRESS NOTE Date of Visit: Mar 12, 2024 Time of Visit: 11:28 Events / Notes: No acute events overnight. Bleeding scan was negative. She did report hematemesis. Hemoglobin trended down to 7. Review of Systems: CONSTITUTIONAL: No malaise or change in sensation of wellbeing. ENMT: No rhinorrhea, otorrhea, sinus pain, ear ache. CARDIOVASCULAR: No angina, palpitations, orthopnea or paroxysmal dyspnea. RESPIRATORY: No SOB. GASTROINTESTINAL: No abdominal pain, nausea, vomiting, diarrhea, hematemesis, melena or change in the patient's habitual bowel movements consistency/number. GENITOURINARY: No dysuria, hematuria or change in bladder continence. MUSCULOSKELETAL: No new muscle pain or decrease in muscular strength. No new joint swelling, redness or tenderness. SKIN: No new rash. Physical Exam: GEN: Awake, alert, oriented in person, time and place, and in no acute distress. HEENT: No sinus tenderness. Tympanic membranes were not examined. No rhinorrhea. Oral pharyngeal mucosa is pink, moist and within normal limits. Neck is supple with no cervical lymphadenopathy, thyromegaly or JVD. CHEST: Inspection, palpation and percussion of the chest were unremarkable. Lung auscultation revealed normal breath sounds bilaterally. CARDIAC: PMI is within normal limits. Heart sounds are regular. Normal S1, S2. No gallop or murmur. ABD: Soft, non-tender and not distended. No peritoneal signs on palpation. No organomegaly. Normal bowel sounds. EXT: No cyanosis or clubbing. No edema. SKIN: Intact. No rashes. JOINTS: No evidence of synovitis or acute arthritis. NEURO: Alert and oriented to name, place and person. Cranial nerve examination is unremarkable. No focal motor deficits. Normal speech. Gait is normal. Strength is normal. Vital Signs (last 8hr) Date Time Temp Pulse Resp B/P (MAP) Pulse Ox O2 Delivery O2 Flow Rate FiO2 03/12/24 07:52 97.9 105 19 132/69 93 Nasal Cannula 2.0 03/12/24 06:36 98 20 03/12/24 06:34 98 20 N/Cannula Low lpm 2.0 28 03/12/24 05:02 98.6 100 19 136/59 98 Nasal Cannula 2.0 24 Laboratory: [ ] Laboratory: Test 03/12/24 06:45 03/12/24 06:42 03/11/24 16:49 03/11/24 10:23 Range/Units Hemoglobin 7.9 L 12.0-16.0 g/dL Hematocrit 25.9 L 36-48 % Sodium Level 144 136-145 mmol/L Potassium Level 3.9 3.5-5.1 mmol/L Chloride Level 108 101-111 mmol/L Carbon Dioxide Level 27 21-32 mmol/L Blood Urea Nitrogen 52 H 7-18 mg/dL Creatinine 1.1 H 0.5-1.0 mg/dL Glomerular Filtration Rate Calc 52 >90 mL/min Random Glucose 145 H 70-105 mg/dL Total Calcium 9.2 8.5-10.1 mg/dL Magnesium Level 2.60 H 1.80-2.40 mg/dL Total Bilirubin 0.3 0.2-1.0 mg/dL Aspartate Amino Transf (AST/SGOT) 18 10-37 U/L Alanine Aminotransferase (ALT/SGPT) 17 12-78 U/L Alkaline Phosphatase 69 50-136 U/L Total Protein 7.0 6.0-8.3 g/dL Albumin 2.1 L 3.5-5.0 g/dL Stool Occult Blood NEGATIVE NEGATIVE White Blood Count 11.0 H 4.8-10.8 K/uL Red Blood Count 3.31 L 4.00-5.50 MIL/uL Mean Corpuscular Volume 67.7 L 79-99 fL Mean Corpuscular Hemoglobin 21.1 L 27.0-33.0 pg Mean Corpuscular Hemoglobin Concent 31.3 L 32.0-36.0 g/dL Red Cell Distribution Width 16.0 H 11.0-15.5 % Platelet Count 538 H 130-400 K/uL Mean Platelet Volume 9.6 7.5-10.5 fL Immature Granulocyte % (Auto) 0.8 0-1 % Neutrophils (%) (Auto) 93.8 H 40.0-77.0 % Lymphocytes (%) (Auto) 2.1 L 21.0-51.0 % Monocytes (%) (Auto) 3.3 3.0-13.0 % Eosinophils (%) (Auto) 0.0 0.0-8.0 % Basophils (%) (Auto) 0.0 0.0-5.0 % Neutrophils # (Auto) 10.3 H 1.8-7.7 K/uL Lymphocytes # (Auto) 0.2 L 1.0-4.8 K/uL Monocytes # (Auto) 0.4 0.1-1.0 K/uL Eosinophils # (Auto) 0.00 0.00-0.70 K/uL Basophils # (Auto) 0.00 0.00-0.20 K/uL Absolute Immature Granulocyte (auto 0.09 0-1 K/uL Nucleated Red Blood Cells 0.2 H 0.0-0.19 % Prothrombin Time 10.9 9.6-11.6 SEC Prothromb Time International Ratio 1.01 0.85-1.15 Activated Partial Thromboplast Time 25.4 L 26.3-35.5 SEC Test 03/10/24 20:51 03/10/24 16:43 03/10/24 16:18 03/10/24 14:07 Range/Units Troponin I High Sensitivity 17 4-50 ng/L Total Creatine Kinase 75 # 21-232 U/L Blood Gas Specimen Type Arterial Arterial Blood pH 7.439 7.350-7.450 Arterial Blood Partial Pressure CO2 32 32-45 mmHg Arterial Blood Partial Pressure O2 70.5 L 83.0-108.0 mmHg Arterial Blood HCO3 20.9 L 21.0-28.0 mmol/L Arterial Blood Oxygen Saturation 94.9 94.0-98.0 % Arterial Blood Base Excess -2.2 L -2.0-3.0 mmol/L Blood Gas Temperature 37.0 35.5-37.0 CELSIUS Blood Gas Flow-by 3.00 0.00-15.00 L/min Blood Gas Vent Mode NC ROOM AIR FiO2 28.0 % Blood Gas Specimen Comment LR,JOSEFA Thyroid Stimulating Hormone (TSH) 0.74 0.36-3.74 uIU/mL Current Medications Medications (Trade) Dose Ordered Sig/Jesus Route PRN Reason Start Time Stop Time Status Last Admin Dose Admin Acetaminophen (TYLenol 325MG TAB) 650 mg Q4H PRN PO TEMPERATURE GREATER THAN 101.5 03/10/24 07:30 04/09/24 07:29 03/11/24 10:30 650 MG Acetylcysteine (MUComyst 10% 4ML) 400mg = 4ml [id number] IH 03/10/24 12:00 04/09/24 11:59 03/12/24 06:35 400 MG Albuterol (DUOneb) 1 UDVIAL [id number] IH 03/10/24 12:00 04/09/24 11:59 03/12/24 06:35 1 UDVIAL Azithromycin 250 ml @ 250 mls/hr Q24H IVPB 03/10/24 05:00 03/10/24 07:39 DC 03/10/24 05:41 250 MLS/HR Azithromycin 250 ml @ 250 mls/hr Q24H IVPB 03/11/24 08:00 03/21/24 07:59 03/12/24 08:13 250 MLS/HR Budesonide (Pulmicort 0.5 Mg/2ml) 0.5 mg BIDRESP IH 03/10/24 10:30 04/09/24 10:29 03/12/24 06:35 0.5 MG Ceftriaxone Sodium (ROCEphine 1G INJ) 1 gm Q24H IVPB 03/11/24 08:00 03/10/24 10:20 DC Guaifenesin/ Dextromethorphan (RobiTUSSin DM 200/20MG 10ML) 5 ml Q4H PRN PO COUGH 03/10/24 07:30 04/09/24 07:29 Heparin Sodium (Porcine) (HEParin 5,000 UNIT VIAL) 5,000 unit Q12H SQ 03/10/24 16:30 04/09/24 16:29 03/11/24 04:35 5,000 UNIT Hydralazine HCl (APRESOLine 20MG INJ) 5 mg Q4H PRN IV ADMINISTER FOR SBP > 160 03/10/24 08:30 04/09/24 08:29 Methylprednisolone Sodium Succinate (Solu-medROL 40MG) 40 mg Q8H IVP 03/10/24 07:30 03/10/24 07:39 DC Methylprednisolone Sodium Succinate (Solu-medROL 40MG) 40 mg Q8H IVP 03/10/24 07:30 04/09/24 07:29 03/12/24 08:13 40 MG Metronidazole/ Sodium Chloride 100 ml @ 100 mls/hr Q8H IVPB 03/10/24 08:30 03/10/24 10:15 DC 03/10/24 09:36 100 MLS/HR Montelukast Sodium (SinguLAIR) 10 mg DAILY PO 03/10/24 09:00 04/09/24 08:59 03/11/24 09:24 10 MG Pantoprazole Sodium (PROTonix 40MG INJ) 40 mg DAILY IVP 03/10/24 09:00 04/09/24 08:59 03/12/24 08:13 40 MG Piperacillin Sod/ Tazobactam Sod (Zosyn 3.375gm+NS 50ml) 3.375 gm Q8H IV 03/10/24 10:30 03/20/24 10:29 03/12/24 02:36 3.375 GM Potassium Chloride 100 ml @ 100 mls/hr AD PRN IV POTASSIUM PROTOCOL 03/10/24 10:30 03/10/24 10:26 DC Potassium Chloride 100 ml @ 100 mls/hr AD PRN IV POTASSIUM PROTOCOL 03/10/24 10:30 04/09/24 10:29 Potassium Chloride (K-Dur 10meq Sr Tab) 10 meq AD PRN PO POTASSIUM PROTOCOL 03/10/24 10:30 04/09/24 10:29 Potassium Chloride (KCl 10% Elixir 20meq/15ml) 10 meq AD PRN PO POTASSIUM PROTOCOL 03/10/24 10:30 04/09/24 10:29 03/10/24 18:20 10 MEQ Sodium Chloride 1,000 ml @ 50 mls/hr Q20H IV 03/10/24 09:00 03/10/24 10:18 DC 03/10/24 09:36 50 MLS/HR Diagnostics / Radiology: [COPY/PASTE HERE IF NO REPORTS PLEASE DELETE SECTION] Assessment: Hematemesis Hiatal hernia MICHAEL Plan: 1. NPO 2. EGD in AM. I have discussed the risks, benefits, alternatives, and potential complications. Questions were answered and they agree to proceed. 3. Pantoprazole drip 80 mg IV bolus and then 8 mg/hr IV infusion for 72 hours 4. Octreotide 50 mcg IV bolus and then 50 mcg/hr IV infusion for 72 hours 5. Recommend checking Hg every 6 hours and transfuse to goal Hg >7. Please do not overtransfuse 6. Please contact our service if the patient has significant bleeding such as hematemesis and we can proceed sooner with the EGD Thanks you for allowing us to participate in the care of this patient! JYOTI TRAVIS [facility] Mar 12, 2024 11:28
[2024-03-12 12:09] LABS: HEMATOCRIT 26.4 % (36-48)
[2024-03-12 13:45] LABS: IRON, SERUM 17 mcg/dL (50-170); TOTAL IRON BINDING CAPACITY 282 mcg/dL (250-450)
[2024-03-12 13:59] LABS: FERRITIN 70 ng/mL (15-150)
--- NOTE | 2024-03-12 14:59 | HMCIMG ---
NM GI BLOOD LOSS IMAG REASON: gi bleed COMPARISON: None TECHNIQUE: Images are obtained following administration of 27 mCi technetium 99m tagged red blood cells. FINDINGS: Images demonstrate normal flow. Whole-body images at 5 minute intervals show normal soft tissue background. There is a small amount of renal excretion consistent with an tagged technetium. There are no focal abnormal accumulations to suggest active GI bleeding. IMPRESSION: 1. Negative GI bleeding scan.
[2024-03-12 18:10] LABS: HEMATOCRIT 25.5 % (36-48)
[2024-03-12] MEDS: atorVAStatin 20 MG TABLET PO SCH (20:15)
--- NOTE | 2024-03-12 20:52 | PN ---
[facility] PROGRESS NOTE Date Patient Seen: Mar 12, 2024 Time of Visit: 20:51 Supervising Physician: [Dr. Sandy] Consulting Physician: [facility] Outpatient Specialists: [ ] Inpatient Consults: [ ] PROBLEM LIST: Acute gastroenteritis, POA Acute blood loss anemia, POA Hematemesis, POA Acute hypoxic respiratory failure, negative for COVID and flu CT chest (-) for acute infiltrate, POA Possible ROSEMARIE, POA Hypertension, POA Hyperlipidemia, POA Microcytic anemia, POA Hyponatremia, POA Hypokalemia, POA Acute kidney injury, POA PLAN: GI workup per primary Continue O2 therapy Keep O2 saturation above 90% Keep head of bed above 30 DuoNeb q.6 as needed for shortness of breaths Complete bedrest for now Incentive spirometry Bilateral SCDs Obtain 2D echo Obtain UA CBC, CMP, magnesium level daily INTERVAL HISTORY: [Patient is evaluated in the ED with at bedside. Her hgb has dropped from 9.1 to 7.0. Did have N/V and diarrhea on admission but states none today. She did report hematemesis. Pending GI consult per primary. She continues on 2LNC. Patient [place].] 03/12 Hgb dropped to 6.4 overnight, patient did receive 1 unit PRBC and hgb improved to 7.9. She had a negative bleeding scan and will have an EGD in AM per GI. She continues with hypoxia on supplemental oxygen. REVIEW OF SYSTEMS: 12 point ROS reviewed with patient. Pertinent positives mentioned above. Otherwise negative. PHYSICAL EXAM: GENERAL: alert, weak, awake oriented x 3 HEENT: EOMI, Sclera non icteric, moist mucosa NECK: Supple, no JVD, trachea midline LUNGS: Clear breath sounds bilaterally. Diminished bibasilar area HEART: Regular rate and rhythm. Normal S1 and S2, without murmurs ABD: Large body habitus EXT: No clubbing cyanosis 3+ pitting edema NEURO: Alert and oriented to person, follows commands Vital Signs (last 8hr) Date Time Temp Pulse Resp B/P (MAP) Pulse Ox O2 Delivery O2 Flow Rate FiO2 03/12/24 19:43 20 N/Cannula Low lpm 2.0 28 03/12/24 19:32 90 20 03/12/24 15:58 97.9 101 20 138/69 94 Nasal Cannula 2.0 LABS: Hematology Labs: Test 03/12/24 18:02 03/12/24 06:45 03/11/24 10:23 Range/Units Hemoglobin 7.8 L 12.0-16.0 g/dL Hematocrit 25.5 L 36-48 % Reticulocyte Count (auto) 1.45218 0.42-2.23 % Immature Reticulocyte Fraction 21.50 H 0.18-0.48 % White Blood Count 11.0 H 4.8-10.8 K/uL Red Blood Count 3.31 L 4.00-5.50 MIL/uL Mean Corpuscular Volume 67.7 L 79-99 fL Mean Corpuscular Hemoglobin 21.1 L 27.0-33.0 pg Mean Corpuscular Hemoglobin Concent 31.3 L 32.0-36.0 g/dL Red Cell Distribution Width 16.0 H 11.0-15.5 % Platelet Count 538 H 130-400 K/uL Mean Platelet Volume 9.6 7.5-10.5 fL Immature Granulocyte % (Auto) 0.8 0-1 % Neutrophils (%) (Auto) 93.8 H 40.0-77.0 % Lymphocytes (%) (Auto) 2.1 L 21.0-51.0 % Monocytes (%) (Auto) 3.3 3.0-13.0 % Eosinophils (%) (Auto) 0.0 0.0-8.0 % Basophils (%) (Auto) 0.0 0.0-5.0 % Neutrophils # (Auto) 10.3 H 1.8-7.7 K/uL Lymphocytes # (Auto) 0.2 L 1.0-4.8 K/uL Monocytes # (Auto) 0.4 0.1-1.0 K/uL Eosinophils # (Auto) 0.00 0.00-0.70 K/uL Basophils # (Auto) 0.00 0.00-0.20 K/uL Absolute Immature Granulocyte (auto 0.09 0-1 K/uL Nucleated Red Blood Cells 0.2 H 0.0-0.19 % Chemistry Labs: Test 03/12/24 06:45 03/12/24 06:42 Range/Units Iron Level 17 #L 50-170 mcg/dL Total Iron Binding Capacity 282 250-450 mcg/dL Percent Iron Saturation 6.0 L 22-44 % Ferritin 70 15-150 ng/mL Vitamin B12 Level 3959 H 193-986 pg/mL Folic Acid (LAB) > 20.00 H 2-20 ng/mL Sodium Level 144 136-145 mmol/L Potassium Level 3.9 3.5-5.1 mmol/L Chloride Level 108 101-111 mmol/L Carbon Dioxide Level 27 21-32 mmol/L Blood Urea Nitrogen 52 H 7-18 mg/dL Creatinine 1.1 H 0.5-1.0 mg/dL Glomerular Filtration Rate Calc 52 >90 mL/min Random Glucose 145 H 70-105 mg/dL Total Calcium 9.2 8.5-10.1 mg/dL Magnesium Level 2.60 H 1.80-2.40 mg/dL Total Bilirubin 0.3 0.2-1.0 mg/dL Aspartate Amino Transf (AST/SGOT) 18 10-37 U/L Alanine Aminotransferase (ALT/SGPT) 17 12-78 U/L Alkaline Phosphatase 69 50-136 U/L Total Protein 7.0 6.0-8.3 g/dL Albumin 2.1 L 3.5-5.0 g/dL Coagulation Labs: Test 03/11/24 10:23 Range/Units Prothrombin Time 10.9 9.6-11.6 SEC Prothromb Time International Ratio 1.01 0.85-1.15 Activated Partial Thromboplast Time 25.4 L 26.3-35.5 SEC DIAGNOSTICS / RADIOLOGY RESULTS: NM GI BLOOD LOSS IMAG REASON: gi bleed COMPARISON: None TECHNIQUE: Images are obtained following administration of 27 mCi technetium 99m tagged red blood cells. FINDINGS: Images demonstrate normal flow. Whole-body images at 5 minute intervals show normal soft tissue background. There is a small amount of renal excretion consistent with an tagged technetium. There are no focal abnormal accumulations to suggest active GI bleeding. IMPRESSION: 1. Negative GI bleeding scan. PLAN NEURO: Minimize central acting medications as possible. Maintain fall precautions, adequate lighting during the day PULMONARY: Supplemental 02 as needed. Maintain aspiration precautions at all times CARDIOVASCULAR: Follow hemodynamics. Vital signs per facility protocol GI & NUTRITION: Continue with nutritional support. Continue stool softeners and laxatives as needed. KIDNEYS & ELECTROLYTES: Strict monitoring of intake, output and overall fluid balance. Avoid nephrotoxic medications to the extent possible. Medications to be dosed according to renal function. Monitor electrolytes and replace as needed ENDOCRINE: Maintain blood glucose between 100-180 at all times. Hypoglycemia protocol in place INFECTIOUS DISEASE: Trend temperature, WBC and procalcitonin level Follow cultures, deescalate antibiotics as soon as possible. Panculture if new onset fever ONCOLOGY/HEMATOLOGY/COAGULATION: Monitor for s/s of bleeding Monitor hemoglobin, coagulation studies as needed SKIN: Pressure ulcer prevention per facility protocol Specialty mattress ORTHO/REHAB: Continue PT/OT Prophylaxis: Continue GI and DVT prophylaxis Code Status: Full Resuscitation Disposition: TBD Other: Total patient care time exceeds 35 minutes excluding all procedures. BRUCE BARRY Mar 12, 2024 20:52
[2024-03-13] VITALS (28 sets, daily range): BP systolic 118–156; BP diastolic 55–84; PULSE 66–100; RESP 16–20; TEMP 97.4–98.4; O2SAT 87–99
[2024-03-13 04:02] LABS: BASOPHILS # (AUTO) 0.03 K/uL (0.00-0.20); BASOPHILS % (AUTO) 0.2 % (0.0-5.0); HEMATOCRIT 24.9 % (36-48); LYMPHOCYTES # (AUTO) 0.6 K/uL (1.0-4.8); LYMPHOCYTES % (AUTO) 3.8 % (21.0-51.0); MEAN CORPUSCULAR HEMOGLOBIN 21.5 pg (27.0-33.0); MEAN CORPUSCULAR HGB CONC 30.5 g/dL (32.0-36.0); MEAN CORPUSCULAR VOLUME 70.3 fL (79-99); MONOCYTES # (AUTO) 0.5 K/uL (0.1-1.0); MONOCYTES % (AUTO) 3.4 % (3.0-13.0); NEUTROPHILS # (AUTO) 13.6 K/uL (1.8-7.7); NEUTROPHILS % (AUTO) 86.9 % (40.0-77.0); NUCLEATED RED BLOOD CELLS 0.1 % (0.0-0.19); PLATELET COUNT (AUTO) 494 K/uL (130-400); RED BLOOD CELL COUNT(AUTO) 3.54 MIL/uL (4.00-5.50); RED CELL DISTRIBUTION WIDTH 17.3 % (11.0-15.5); WHITE BLOOD COUNT (AUTO) 15.7 K/uL (4.8-10.8)
[2024-03-13 04:19] LABS: BILIRUBIN,TOTAL 0.2 mg/dL (0.2-1.0); CREATININE 0.8 mg/dL (0.5-1.0); MAGNESIUM 2.5 mg/dL (1.80-2.40); POTASSIUM 3.9 mmol/L (3.5-5.1); TOTAL PROTEIN, SERUM 6.4 g/dL (6.0-8.3)
--- NOTE | 2024-03-13 04:24 | NUR ---
NOTE HEPARIN NOT ADMINISTERED DUE TO UNSTABLE H/H.
[2024-03-13] MEDS: amLODIPine 5 MG TAB PO SCH (09:00)
[2024-03-13] MEDS: FOLic ACID 1 MG TABLET PO SCH (09:00)
--- NOTE | 2024-03-13 09:17 | PN ---
[facility] PROGRESS NOTE Date of Service: Mar 13, 2024 Time of Service: 09:14 SUBJECTIVE: [ ] This is a 78-year-old female that presents in ED with chief complaints of persistent cough nausea and vomiting and diarrhea. Onset for one-week. She reports that she [place] park and most acquaintances have similar symptoms. She reports diarrhea subsided. She denies fever chills. However, continues with dyspnea with minimal exertion and productive cough and decided to come ED for further evaluation. March 11, 2024 patient is seen and examined earlier this morning. Reviewed chart imaging. Patient with a low H&H 7.0 patient is asymptomatic we will get H&H every 6 hours this morning reports no active bleeding. However she did have severe diarrhea prior to this admission. Occult stool blood and consult GI patient is doing much better today compared to yesterday. On nasal cannula 2 L physical therapy to ambulate patient we will going to attempt to titrate oxygen. 03/12/24 patient is seen and examined with Patient was sitting on the edge of the bed patient continues on oxygen supplemental we will titrate as tolerated. Physical therapy to work with patient. Status post blood transfusion 1 unit hemoglobin this morning 7.9. Occult blood negative GI on board we will also consult Hematology labs: flow cytometry /anemia workup done. March 13, 2024 patient is seen and examined with Dr. Byers patient is scheduled for EGD this morning. Patient continues on oxygen supplemental. 6 minute walk for possible home oxygen if needed. 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 Leukocytosis most likely induced by IV steroids. ELVA resolved REVIEW OF SYSTEMS CONSTITUTIONAL: Denies fevers, chills, or night sweats. No unintentional weight loss reported. NEUROLOGICAL: Denies headache, amaurosis fugax, motor weakness, sensory deficit, vertigo/spinning sensation, gait abnormalities, or tremors. ENT: No hearing loss, otalgia, otorrhea, rhinitis, rhinorrhea, hoarseness, or sore throat. CARDIOVASCULAR: Denies any exertional angina, dyspnea on exertion, orthopnea, paroxysmal nocturnal dyspnea, palpitations, life-threatening arrhythmias, claudication. PULMONARY: Denies any shortness of breath, cough, phlegm/sputum, hemoptysis, pleuritic chest pain. SLEEP: Denies morning headaches, daytime somnolence or napping. Denies difficulty falling asleep, staying asleep, waking from sleep. Denies knowledge of snoring. GASTROINTESTINAL: Denies any type of dysphagia to either liquids or solids. Denies nausea, vomiting, pyrosis, early satiety, abdominal pain, diarrhea, constipation, or changes in stool consistency or caliber. Denies coffee-ground emesis, hematemesis, hematochezia, or melanotic stools. GENITOURINARY: Denies frequency, urgency, nocturia, hematuria or incontinence (Storage/Irritative symptoms.) Low urinary stream, straining to void, urinary i ntermittency or hesitancy, splitting of the voiding stream, terminal dribbling. ENDOCRINOLOGIC: Denies polyuria, polydipsia, polyphagia or heat/cold intolerances. HEMATOLOGIC: Denies thrombophilia/previous clots, or coagulopathy/bleeding disorders. ONCOLOGIC: Denies personal history of malignancy. DERMATOLOGIC: Denies rashes or pruritus. PSYCHIATRIC: Denies any suicidal or homicidal ideation. Denies hallucinations. PHYSICAL EXAM GENERAL APPEARANCE: The patient is awake, alert, and oriented, in no acute cardiopulmonary distress. NEUROLOGICAL: Cranial nerves II-XII grossly intact. Motor is 5/5 in bilateral upper and lower extremities proximal to distal. No sensory deficits. HEENT: Face is symmetric. Pupils are equal and reactive. Extraocular movements are intact. NECK: Supple. No JVD. No thyromegaly. No submental, submandibular, pre- /postauricular, occipital or supraclavicular lymphadenopathy. CHEST: Normal chest expansion. No Telemetry. LUNGS: Absence of any rales, rhonchi or any wheezing. CARDIOVASCULAR: Regular. S1 and S2 normal. No appreciable rubs, murmurs or gallops. ABDOMEN: Soft, nontender, and nondistended. There is no rebound, voluntary guarding, or rigidity. : Deferred. No Ba. EXTREMITIES: Non-edematous and not cyanotic. No clubbing. Good capillary refill. SKIN: No skin breakdown. Vital Signs (last 8hr) Date Time Temp Pulse Resp B/P (MAP) Pulse Ox O2 Delivery O2 Flow Rate FiO2 03/13/24 08:00 98.4 85 19 131/67 95 Room Air 11/14/24 06:33 90 20 03/13/24 04:00 97.9 81 18 140/73 94 Nasal Cannula 2.0 LABS: Laboratory: Test 03/13/24 03:24 03/12/24 06:45 03/11/24 16:49 03/11/24 10:23 Range/Units White Blood Count 15.7 H 4.8-10.8 K/uL Red Blood Count 3.54 L 4.00-5.50 MIL/uL Hemoglobin 7.6 L 12.0-16.0 g/dL Hematocrit 24.9 L 36-48 % Mean Corpuscular Volume 70.3 L 79-99 fL Mean Corpuscular Hemoglobin 21.5 L 27.0-33.0 pg Mean Corpuscular Hemoglobin Concent 30.5 L 32.0-36.0 g/dL Red Cell Distribution Width 17.3 H 11.0-15.5 % Platelet Count 494 H 130-400 K/uL Mean Platelet Volume 9.6 7.5-10.5 fL Immature Granulocyte % (Auto) 5.7 H 0-1 % Neutrophils (%) (Auto) 86.9 H 40.0-77.0 % Lymphocytes (%) (Auto) 3.8 L 21.0-51.0 % Monocytes (%) (Auto) 3.4 3.0-13.0 % Eosinophils (%) (Auto) 0.0 0.0-8.0 % Basophils (%) (Auto) 0.2 0.0-5.0 % Neutrophils # (Auto) 13.6 H 1.8-7.7 K/uL Lymphocytes # (Auto) 0.6 L 1.0-4.8 K/uL Monocytes # (Auto) 0.5 0.1-1.0 K/uL Eosinophils # (Auto) 0.00 0.00-0.70 K/uL Basophils # (Auto) 0.03 0.00-0.20 K/uL Absolute Immature Granulocyte (auto 0.90 0-1 K/uL Nucleated Red Blood Cells 0.1 0.0-0.19 % Sodium Level 146 H 136-145 mmol/L Potassium Level 3.9 3.5-5.1 mmol/L Chloride Level 109 101-111 mmol/L Carbon Dioxide Level 27 21-32 mmol/L Blood Urea Nitrogen 42 H 7-18 mg/dL Creatinine 0.8 0.5-1.0 mg/dL Glomerular Filtration Rate Calc 76 >90 mL/min Random Glucose 141 H 70-105 mg/dL Total Calcium 9.0 8.5-10.1 mg/dL Magnesium Level 2.50 H 1.80-2.40 mg/dL Total Bilirubin 0.2 # 0.2-1.0 mg/dL Aspartate Amino Transf (AST/SGOT) 23 10-37 U/L Alanine Aminotransferase (ALT/SGPT) 14 12-78 U/L Alkaline Phosphatase 63 50-136 U/L Total Protein 6.4 6.0-8.3 g/dL Albumin 2.0 L 3.5-5.0 g/dL Reticulocyte Count (auto) 1.21914 0.42-2.23 % Immature Reticulocyte Fraction 21.50 H 0.18-0.48 % Iron Level 17 #L 50-170 mcg/dL Total Iron Binding Capacity 282 250-450 mcg/dL Percent Iron Saturation 6.0 L 22-44 % Ferritin 70 15-150 ng/mL Vitamin B12 Level 3959 H 193-986 pg/mL Folic Acid (LAB) > 20.00 H 2-20 ng/mL Stool Occult Blood NEGATIVE NEGATIVE Prothrombin Time 10.9 9.6-11.6 SEC Prothromb Time International Ratio 1.01 0.85-1.15 Activated Partial Thromboplast Time 25.4 L 26.3-35.5 SEC Current Medications Medications (Trade) Dose Ordered Sig/Jesus Route PRN Reason Start Time Stop Time Status Last Admin Dose Admin Acetaminophen (TYLenol 325MG TAB) 650 mg Q4H PRN PO TEMPERATURE GREATER THAN 101.5 03/10/24 07:30 04/09/24 07:29 03/12/24 23:56 650 MG Acetylcysteine (MUComyst 10% 4ML) 400mg = 4ml [id number] 03/10/24 12:00 04/09/24 11:59 03/13/24 06:32 400 MG Albuterol (DUOneb) 1 UDVIAL [id number] 03/10/24 12:00 04/09/24 11:59 03/13/24 06:33 1 UDVIAL Amlodipine Besylate (NorvASC 5MG TAB) 5 mg DAILY PO 03/13/24 09:00 04/12/24 08:59 Atorvastatin Calcium (LIPItor 20MG) 20 mg HS PO 03/12/24 21:00 04/11/24 20:59 03/12/24 20:15 20 MG Azithromycin 250 ml @ 250 mls/hr Q24H IVPB 03/10/24 05:00 03/10/24 07:39 DC 03/10/24 05:41 250 MLS/HR Azithromycin 250 ml @ 250 mls/hr Q24H IVPB 03/11/24 08:00 03/21/24 07:59 03/13/24 08:47 250 MLS/HR Budesonide (Pulmicort 0.5 Mg/2ml) 0.5 mg BIDRESP IH 03/10/24 10:30 04/09/24 10:29 03/13/24 06:33 0.5 MG Ceftriaxone Sodium (ROCEphine 1G INJ) 1 gm Q24H IVPB 03/11/24 08:00 03/10/24 10:20 DC Folic Acid (FOLic ACID 1 MG TABLET) 1 mg DAILY PO 03/13/24 09:00 04/12/24 08:59 UNV Guaifenesin/ Dextromethorphan (RobiTUSSin DM 200/20MG 10ML) 5 ml Q4H PRN PO COUGH 03/10/24 07:30 04/09/24 07:29 Heparin Sodium (Porcine) (HEParin 5,000 UNIT VIAL) 5,000 unit Q12H SQ 03/10/24 16:30 04/09/24 16:29 03/11/24 04:35 5,000 UNIT Hydralazine HCl (APRESOLine 20MG INJ) 5 mg Q4H PRN IV ADMINISTER FOR SBP > 160 03/10/24 08:30 04/09/24 08:29 Methylprednisolone Sodium Succinate (Solu-medROL 40MG) 40 mg Q8H IVP 03/10/24 07:30 03/10/24 07:39 DC Methylprednisolone Sodium Succinate (Solu-medROL 40MG) 40 mg Q8H IVP 03/10/24 07:30 04/09/24 07:29 03/13/24 05:59 40 MG Metronidazole/ Sodium Chloride 100 ml @ 100 mls/hr Q8H IVPB 03/10/24 08:30 03/10/24 10:15 DC 03/10/24 09:36 100 MLS/HR Montelukast Sodium (SinguLAIR) 10 mg DAILY PO 03/10/24 09:00 04/09/24 08:59 03/11/24 09:24 10 MG Pantoprazole Sodium (PROTonix 40MG INJ) 40 mg DAILY IVP 03/10/24 09:00 04/09/24 08:59 03/13/24 08:47 40 MG Piperacillin Sod/ Tazobactam Sod (Zosyn 3.375gm+NS 50ml) 3.375 gm Q8H IV 03/10/24 10:30 03/20/24 10:29 03/13/24 02:27 3.375 GM Potassium Chloride 100 ml @ 100 mls/hr AD PRN IV POTASSIUM PROTOCOL 03/10/24 10:30 03/10/24 10:26 DC Potassium Chloride 100 ml @ 100 mls/hr AD PRN IV POTASSIUM PROTOCOL 03/10/24 10:30 04/09/24 10:29 Potassium Chloride (K-Dur 10meq Sr Tab) 10 meq AD PRN PO POTASSIUM PROTOCOL 03/10/24 10:30 04/09/24 10:29 Potassium Chloride (KCl 10% Elixir 20meq/15ml) 10 meq AD PRN PO POTASSIUM PROTOCOL 03/10/24 10:30 04/09/24 10:29 03/10/24 18:20 10 MEQ Sodium Chloride 1,000 ml @ 50 mls/hr Q20H IV 03/10/24 09:00 03/10/24 10:18 DC 03/10/24 09:36 50 MLS/HR DIAGNOSTICS / RADIOLOGY: [ ] ASSESSMENT: Sepsis: lactic acid 2.7, low blood pressure, RR: 27)POA acute resp failure with hypoxia POA elevated D dimer ruled out PE POA Acute gastroenteritis POA ELVA most likely CRF stage III POA resolved Microcytic anemia requiring blood transfusion POA electrolytes derangement: Hypokalemia hyponatremia POA Failure to strive POA Acute anemia not POA PLAN: [ ] admit to [facility] 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 - PRN: antitussive as needed for cough, Montelukast 10 mg po daily - Aspiration precaution HOB at 45 degree at all time H&H every 6 hours occult blood status post blood transfusion today hemoglobin 7.4we will repeat at 2:00 p.m. scheduled for EGD today will follow results Occult blood negative transfuse to keep O2 sat > 7.0 , Hematology consulted: started Venofer IV x3 acute gastroenteritis; diarrhea stop: cancel PCR stool and ova/parasites Avoid NSAIDs creatinine improved GI soft bland diet Replace electrolytes as needed per protocol - PT services OOB to chair , fall precautions PRN: MEDICATIONS Tylenol 650 mg po every 4 hrs for fever Zofran 4 mg IV every 6 hrs for n/v Hydralazine 5 mg IV every 4 hrs systolic pressure > 160 Supportive measures: DVT ppx, GI ppx all questions answered Supervising MD: Dr. Byers c/d ATTESTATION BY PHYSICIAN I have seen and examined the patient. I reviewed the documentation, medical decision making, and treatment plan as noted by the mid-level provider above. I agree with the findings and plan of care. CHANELLE BYERS MD, ELIZABETH NP Mar 13, 2024 09:17
[2024-03-13] MEDS ORDERED: proPOFol 10 MG/ML 20ML VIAL IV ONE (12:29)
[2024-03-13] MEDS ORDERED: IRON sUCROse COMPLEX 100 MG/5 ML VIAL IV SCH (14:00)
[2024-03-13 14:57] LABS: HEMATOCRIT 26.4 % (36-48)
--- NOTE | 2024-03-13 16:20 | CONS ---
CONSULT NOTE: This is a 78-year-old female that presents in ED with chief complaints of persistent cough nausea and vomiting and diarrhea. Onset for one-week. She reports that [place] and most acquaintances have similar symptoms. She reports diarrhea subsided. She denies fever chills. However, continues with dyspnea with minimal exertion and productive cough and decided to come ED for further evaluation. The patient was seen in ED patient's has chest discomfort however troponin was negative most likely musculoskeletal secondary to persistent cough and nausea vomiting. Patient with anemia hemoglobin level now at 7.6 g/deciliter. Peripheral blood show microcytic hypochromic. There was also rouleaux phenomena. Patient was seen by GI and plan for EGD to be done today REVIEW OF SYSTEMS CONSTITUTIONAL: Denies fevers, chills, or night sweats. No unintentional weight loss reported. NEUROLOGICAL: Denies headache, amaurosis fugax, motor weakness, sensory deficit, vertigo/spinning sensation, gait abnormalities, or tremors. ENT: No hearing loss, otalgia, otorrhea, rhinitis, rhinorrhea, hoarseness, or sore throat. CARDIOVASCULAR: Denies any exertional angina, dyspnea on exertion, orthopnea, paroxysmal nocturnal dyspnea, palpitations, life-threatening arrhythmias, claudication. PULMONARY: Denies any shortness of breath, cough, phlegm/sputum, hemoptysis, pleuritic chest pain. SLEEP: Denies morning headaches, daytime somnolence or napping. Denies difficulty falling asleep, staying asleep, waking from sleep. Denies knowledge of snoring. GASTROINTESTINAL: Denies any type of dysphagia to either liquids or solids. Denies nausea, vomiting, pyrosis, early satiety, abdominal pain, diarrhea, constipation, or changes in stool consistency or caliber. Denies coffee-ground emesis, hematemesis, hematochezia, or melanotic stools. GENITOURINARY: Denies frequency, urgency, nocturia, hematuria or incontinence (Storage/Irritative symptoms.) Low urinary stream, straining to void, urinary intermittency or hesitancy, splitting of the voiding stream, terminal dribbling. ENDOCRINOLOGIC: Denies polyuria, polydipsia, polyphagia or heat/cold intolerances. HEMATOLOGIC: Denies thrombophilia/previous clots, or coagulopathy/bleeding disorders. ONCOLOGIC: Denies personal history of malignancy. DERMATOLOGIC: Denies rashes or pruritus. PSYCHIATRIC: Denies any suicidal or homicidal ideation. Denies hallucinations. PAST MEDICAL HISTORY: [ ]hypercholesterolemia and hypertension PAST SURGICAL HISTORY: [ ]none PAST SOCIAL HISTORY: [ ] Denies smoking tobacco products and alcohol use. FAMILY HISTORY: [ ] Noncontributory Coded Allergies: No Known Allergies (Unverified Allergy, Unknown, 03/10/24) PHYSICAL EXAM GENERAL APPEARANCE: The patient is awake, alert, and oriented, in no acute cardiopulmonary distress. NEUROLOGICAL: Cranial nerves II-XII grossly intact. Motor is 5/5 in bilateral upper and lower extremities proximal to distal. No sensory deficits. HEENT: Face is symmetric. Pupils are equal and reactive. Extraocular movements are intact. NECK: Supple. No JVD. No thyromegaly. No submental, submandibular, pre- /postauricular, occipital or supraclavicular lymphadenopathy. CHEST: Normal chest expansion. No Telemetry. LUNGS: Absence of any rales, rhonchi or any wheezing. CARDIOVASCULAR: Regular. S1 and S2 normal. No appreciable rubs, murmurs or gallops. ABDOMEN: Soft, nontender, and nondistended. There is no rebound, voluntary guarding, or rigidity. : Deferred. No Ba. EXTREMITIES: Non-edematous and not cyanotic. No clubbing. Good capillary refill. SKIN: No skin breakdown. Assessment 1. Anemia 2. Chronic renal insufficiency 3. Leukocytosis 4. Sepsis 5. Failure to thrive 6. Possible GI bleeding Plan 1. The anemia is multifactorial including possibly anemia of chronic disease and iron deficiency anemia. Peripheral blood smear showed red blood cells to be normocytic normochromic. There was no fragment cell or schistocyte. There is no teardrop cell. There is no pelger-Huet cell. White blood cell with no blasts. Platelet was normal in morphology and count. 2. There was hypersegmented neutrophils. This patient to be started on folic acid 1 mg p.o. daily and vitamin B12 1000 mcg p.o. daily. 3. 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 We will ask for SPEP, UPEP and free light chain. If there is monoclonal protein we will do a bone marrow biopsy. 4. Patient to be started on IV iron while in the hospital with Venofer 200 mg IV daily 5. Patient was seen by GI there is plan for EGD to be done today. Will follow- up with the results closely. If the EGD is negative then this patient may be will need colonoscopy to be done. 6. No need for blood product transfusion at this time. Laboratory Tests Test 03/12/24 18:02 03/13/24 03:24 03/13/24 14:20 Hemoglobin 7.8 g/dL (12.0-16.0) L 7.6 g/dL (12.0-16.0) L 7.9 g/dL (12.0-16.0) L Hematocrit 25.5 % (36-48) L 24.9 % (36-48) L 26.4 % (36-48) L White Blood Count 15.7 K/uL (4.8-10.8) H Red Blood Count 3.54 MIL/uL (4.00-5.50) L Mean Corpuscular Volume 70.3 fL (79-99) L Mean Corpuscular Hemoglobin 21.5 pg (27.0-33.0) L Mean Corpuscular Hemoglobin Concent 30.5 g/dL (32.0-36.0) L Red Cell Distribution Width 17.3 % (11.0-15.5) H Platelet Count 494 K/uL (130-400) H Mean Platelet Volume 9.6 fL (7.5-10.5) Immature Granulocyte % (Auto) 5.7 % (0-1) H Neutrophils (%) (Auto) 86.9 % (40.0-77.0) H Lymphocytes (%) (Auto) 3.8 % (21.0-51.0) L Monocytes (%) (Auto) 3.4 % (3.0-13.0) Eosinophils (%) (Auto) 0.0 % (0.0-8.0) Basophils (%) (Auto) 0.2 % (0.0-5.0) Neutrophils # (Auto) 13.6 K/uL (1.8-7.7) H Lymphocytes # (Auto) 0.6 K/uL (1.0-4.8) L Monocytes # (Auto) 0.5 K/uL (0.1-1.0) Eosinophils # (Auto) 0.00 K/uL (0.00-0.70) Basophils # (Auto) 0.03 K/uL (0.00-0.20) Absolute Immature Granulocyte (auto 0.90 K/uL (0-1) Nucleated Red Blood Cells 0.1 % (0.0-0.19) Sodium Level 146 mmol/L (136-145) H Potassium Level 3.9 mmol/L (3.5-5.1) Chloride Level 109 mmol/L (101-111) Carbon Dioxide Level 27 mmol/L (21-32) Blood Urea Nitrogen 42 mg/dL (7-18) H Creatinine 0.8 mg/dL (0.5-1.0) Glomerular Filtration Rate Calc 76 mL/min (>90) Random Glucose 141 mg/dL (70-105) H Total Calcium 9.0 mg/dL (8.5-10.1) Magnesium Level 2.50 mg/dL (1.80-2.40) H Total Bilirubin 0.2 mg/dL (0.2-1.0) # Aspartate Amino Transf (AST/SGOT) 23 U/L (10-37) Alanine Aminotransferase (ALT/SGPT) 14 U/L (12-78) Alkaline Phosphatase 63 U/L (50-136) Total Protein 6.4 g/dL (6.0-8.3) Albumin 2.0 g/dL (3.5-5.0) L LAB RESULTS 03/13/24 14:20: Hemoglobin 7.9L, Hematocrit 26.4L 03/13/24 03:24: White Blood Count 15.7H, Red Blood Count 3.54L, Mean Corpuscular Volume 70.3L, Mean Corpuscular Hemoglobin 21.5L, Mean Corpuscular Hemoglobin Concent 30.5L, Red Cell Distribution Width 17.3H, Platelet Count 494H, Mean Platelet Volume 9.6, Immature Granulocyte % (Auto) 5.7H, Neutrophils (%) (Auto) 86.9H, Lymphocytes (%) (Auto) 3.8L, Monocytes (%) (Auto) 3.4, Eosinophils (%) (Auto) 0.0, Basophils (%) (Auto) 0.2, Neutrophils # (Auto) 13.6H, Lymphocytes # (Auto) 0.6L, Monocytes # (Auto) 0.5, Eosinophils # (Auto) 0.00, Basophils # (Auto) 0.03, Absolute Immature Granulocyte (auto 0.90, Nucleated Red Blood Cells 0.1, Sodium Level 146H, Potassium Level 3.9, Chloride Level 109, Carbon Dioxide Level 27, Blood Urea Nitrogen 42H, Creatinine 0.8, Glomerular Filtration Rate Calc 76, Random Glucose 141H, Total Calcium 9.0, Magnesium Level 2.50H, Total Bilirubin 0.2#, Aspartate Amino Transf (AST/SGOT) 23, Alanine Aminotransferase (ALT/SGPT) 14, Alkaline Phosphatase 63, Total Protein 6.4, Albumin 2.0L 03/12/24 06:45: Reticulocyte Count (auto) 1.49382, Immature Reticulocyte Fraction 21.50H, Iron Level 17#L, Total Iron Binding Capacity 282, Percent Iron Saturation 6.0L, Ferritin 70, Vitamin B12 Level 3959H, Folic Acid (LAB) > 20.00H 03/11/24 16:49: Stool Occult Blood NEGATIVE JEANNINE MANLEY MD Mar 13, 2024 16:20
[2024-03-13] MEDS: IRON sUCROse COMPLEX 100 MG/5 ML VIAL IV SCH (16:21)
--- NOTE | 2024-03-13 18:55 | NUR ---
CT ON HOLD PROPER IV ACCESS FOR CT ANGIO NEEDED, RN DUSTIN WILL CALL BACK WHEN READY.
--- NOTE | 2024-03-13 20:03 | NUR ---
Dr Sandy ordered CT Angio per PE Protocol, venous dopplers, and incentive spirometry. Pt has a 22g IV to right hand. 20g placed to left hand tolerated well, saline locked.
--- NOTE | 2024-03-13 22:03 | PN ---
[facility] PROGRESS NOTE Date Patient Seen: Mar 13, 2024 Time of Visit: 21:57 Supervising Physician: CARIN LINARES MD Consulting Physician: [facility] Outpatient Specialists: [ ] Inpatient Consults: [ ] PROBLEM LIST: - Hypotension on admission secondary to volume depletion - Acute dehydration admission secondary to acute gastroenteritis - Hypertension - Hypertensive heart disease - Morbid obesity, BMI 35.5 - iron deficiency anemia - acute hypoxic respiratory failure on admission - suspected viral upper airway infection -COVID - influenza - adult failure to thrive - Acute kidney injury on admission on top of chronic kidney disease INTERVAL HISTORY: 03/13/2024 78 years old woman seen and evaluated by me at bedside her O2 drops on room air, currently on 2 liters O2 still having dry, hacking cough, no phlegm, no hemoptysis complains of dyspnea on exertion denies chest pain denies palpitations less diarrhea, no abdominal pain no fevers, no chills Patient states that she does not use oxygen at home REVIEW OF SYSTEMS: 12 point ROS reviewed with patient. Pertinent positives mentioned above. Otherwise negative. PHYSICAL EXAM: GENERAL: alert, weak, awake oriented x 3 HEENT: EOMI, Sclera non icteric, moist mucosa NECK: Supple, no JVD, trachea midline LUNGS: Clear breath sounds bilaterally. Diminished bibasilar area HEART: Regular rate and rhythm. Normal S1 and S2, without murmurs ABD: Large body habitus EXT: No clubbing cyanosis 3+ pitting edema NEURO: Alert and oriented to person, follows commands Vital Signs (last 8hr) Date Time Temp Pulse Resp B/P (MAP) Pulse Ox O2 Delivery O2 Flow Rate FiO2 03/13/24 20:03 99 Nasal Cannula* 2 28 03/13/24 20:00 98.1 98 18 149/61 99 Nasal Cannula 2.0 03/13/24 18:43 69 20 03/13/24 18:42 69 20 N/Cannula Low lpm 2.0 28 03/13/24 17:30 74 18 156/84 91 Nasal Cannula 1.5 03/13/24 16:30 90 18 146/70 90 Nasal Cannula 1.5 03/13/24 15:30 93 18 151/79 93 Nasal Cannula 2.0 03/13/24 15:00 90 18 147/66 95 Nasal Cannula 2.0 03/13/24 14:30 83 18 133/55 91 Nasal Cannula 2.0 03/13/24 14:15 75 18 118/56 91 Nasal Cannula 2.0 03/13/24 14:00 66 18 133/60 91 Nasal Cannula 2.0 LABS: Hematology Labs: Test 03/13/24 14:20 03/13/24 03:24 03/12/24 06:45 Range/Units Hemoglobin 7.9 L 12.0-16.0 g/dL Hematocrit 26.4 L 36-48 % White Blood Count 15.7 H 4.8-10.8 K/uL Red Blood Count 3.54 L 4.00-5.50 MIL/uL Mean Corpuscular Volume 70.3 L 79-99 fL Mean Corpuscular Hemoglobin 21.5 L 27.0-33.0 pg Mean Corpuscular Hemoglobin Concent 30.5 L 32.0-36.0 g/dL Red Cell Distribution Width 17.3 H 11.0-15.5 % Platelet Count 494 H 130-400 K/uL Mean Platelet Volume 9.6 7.5-10.5 fL Immature Granulocyte % (Auto) 5.7 H 0-1 % Neutrophils (%) (Auto) 86.9 H 40.0-77.0 % Lymphocytes (%) (Auto) 3.8 L 21.0-51.0 % Monocytes (%) (Auto) 3.4 3.0-13.0 % Eosinophils (%) (Auto) 0.0 0.0-8.0 % Basophils (%) (Auto) 0.2 0.0-5.0 % Neutrophils # (Auto) 13.6 H 1.8-7.7 K/uL Lymphocytes # (Auto) 0.6 L 1.0-4.8 K/uL Monocytes # (Auto) 0.5 0.1-1.0 K/uL Eosinophils # (Auto) 0.00 0.00-0.70 K/uL Basophils # (Auto) 0.03 0.00-0.20 K/uL Absolute Immature Granulocyte (auto 0.90 0-1 K/uL Nucleated Red Blood Cells 0.1 0.0-0.19 % Reticulocyte Count (auto) 1.08967 0.42-2.23 % Immature Reticulocyte Fraction 21.50 H 0.18-0.48 % Chemistry Labs: Test 03/13/24 03:24 11/13/24 06:45 Range/Units Sodium Level 146 H 136-145 mmol/L Potassium Level 3.9 3.5-5.1 mmol/L Chloride Level 109 101-111 mmol/L Carbon Dioxide Level 27 21-32 mmol/L Blood Urea Nitrogen 42 H 7-18 mg/dL Creatinine 0.8 0.5-1.0 mg/dL Glomerular Filtration Rate Calc 76 >90 mL/min Random Glucose 141 H 70-105 mg/dL Total Calcium 9.0 8.5-10.1 mg/dL Magnesium Level 2.50 H 1.80-2.40 mg/dL Total Bilirubin 0.2 # 0.2-1.0 mg/dL Aspartate Amino Transf (AST/SGOT) 23 10-37 U/L Alanine Aminotransferase (ALT/SGPT) 14 12-78 U/L Alkaline Phosphatase 63 50-136 U/L Total Protein 6.4 6.0-8.3 g/dL Albumin 2.0 L 3.5-5.0 g/dL Iron Level 17 #L 50-170 mcg/dL Total Iron Binding Capacity 282 250-450 mcg/dL Percent Iron Saturation 6.0 L 22-44 % Ferritin 70 15-150 ng/mL Vitamin B12 Level 3959 H 193-986 pg/mL Folic Acid (LAB) > 20.00 H 2-20 ng/mL DIAGNOSTICS / RADIOLOGY RESULTS: CT scan of the chest reviewed: - No infiltrates seen - Left lower lobe atelectasis - No effusions - hiatal hernia described on CT scan PLAN Suspected severe GERD, start Protonix 40 mg orally BID Start incentive spirometry daily Get BNP in the morning 2D echocardiogram reviewed will order CT angiogram for PE protocol Start IV NS at 50cc/hr 12 hours prior to CTA and then, again after the CTA for 12 hours and then stop NEURO: Minimize central acting medications as possible. Maintain fall precautions, adequate lighting during the day PULMONARY: Supplemental 02 as needed. Maintain aspiration precautions at all times CARDIOVASCULAR: Follow hemodynamics. Vital signs per facility protocol GI & NUTRITION: Continue with nutritional support. Continue stool softeners and laxatives as needed. KIDNEYS & ELECTROLYTES: Strict monitoring of intake, output and overall fluid balance. Avoid nephrotoxic medications to the extent possible. Medications to be dosed according to renal function. Monitor electrolytes and replace as needed ENDOCRINE: Maintain blood glucose between 100-180 at all times. Hypoglycemia protocol in place INFECTIOUS DISEASE: Trend temperature, WBC and procalcitonin level Follow cultures, deescalate antibiotics as soon as possible. Panculture if new onset fever ONCOLOGY/HEMATOLOGY/COAGULATION: Monitor for s/s of bleeding Monitor hemoglobin, coagulation studies as needed SKIN: Pressure ulcer prevention per facility protocol Specialty mattress ORTHO/REHAB: Continue PT/OT Prophylaxis: Continue GI and DVT prophylaxis Code Status: Full Resuscitation Disposition: TBD Other: Total patient care time exceeds 35 minutes excluding all procedures. ATTESTATION BY PHYSICIAN The clinical note was scribed by Xavier Buchanan BSc on my behalf and I attest to the accuracy of the note Carin Linares MD I personally scribed for CARIN LINARES MD ([email or web address]) on 03/13/24 at 22:03. Electronically submitted by Xavier Buchanan ([email or web address]). CARIN LINARES MD Mar 13, 2024 22:03
[2024-03-13] MEDS ORDERED: IOHEXOL-350 75 ML VIAL IV ONE (23:18)
[2024-03-14] VITALS (15 sets, daily range): BP systolic 123–155; BP diastolic 51–90; PULSE 70–135; RESP 17–24; TEMP 97.4–98.4; O2SAT 92–99
--- NOTE | 2024-03-14 00:32 | HMCIMG ---
CT CHEST PE PROTOCOL WWO CONT HISTORY: No additional history given. COMPARISON: None TECHNIQUE: CT angiography of the chest was performed. The study was performed using angiographic technique with maximum intensity projection reconstruction images. Patient was given 75 cc of Omnipaque through intravenous route. FINDINGS: No CT evidence of filling defect is seen to suggest pulmonary embolus. No CT evidence of aortic dissection is seen. Left lower lung subsegmental atelectasis changes are seen. No evidence of parenchymal disease is seen. No CT evidence of pleural effusion or pericardial effusion is seen. The heart is enlarged. There is a hiatal hernia. No evidence of adrenal mass is seen. Degenerative changes of the spine are noted. Post cholecystectomy changes are seen. IMPRESSION: 1. No CT evidence of acute pulmonary embolus is seen. Left lower lung subsegmental atelectasis. Hiatal hernia. CT was performed with one or more following dose reduction techniques: automated exposure control, adjustment of the mA and kv according to patient's size, or use of a iterative reconstruction technique.
[2024-03-14 04:24] LABS: BASOPHILS # (AUTO) 0.05 K/uL (0.00-0.20); BASOPHILS % (AUTO) 0.3 % (0.0-5.0); IMMATURE GRANULOCYTE ABSOLUTE 1.54 K/uL (0-1); LYMPHOCYTES # (AUTO) 0.6 K/uL (1.0-4.8); MEAN CORPUSCULAR HEMOGLOBIN 21.8 pg (27.0-33.0); MEAN CORPUSCULAR VOLUME 72.8 fL (79-99); MONOCYTES # (AUTO) 0.6 K/uL (0.1-1.0); MONOCYTES % (AUTO) 3.3 % (3.0-13.0); NEUTROPHILS # (AUTO) 15.5 K/uL (1.8-7.7); NUCLEATED RED BLOOD CELLS 0.2 % (0.0-0.19); PLATELET COUNT (AUTO) 460 K/uL (130-400); RED BLOOD CELL COUNT(AUTO) 3.57 MIL/uL (4.00-5.50); RED CELL DISTRIBUTION WIDTH 17.8 % (11.0-15.5); WHITE BLOOD COUNT (AUTO) 18.3 K/uL (4.8-10.8)
[2024-03-14 04:52] LABS: BILIRUBIN,TOTAL 0.3 mg/dL (0.2-1.0); CREATININE 0.8 mg/dL (0.5-1.0); MAGNESIUM 2.3 mg/dL (1.80-2.40); POTASSIUM 3.8 mmol/L (3.5-5.1); TOTAL PROTEIN, SERUM 6.2 g/dL (6.0-8.3)
[2024-03-14] MEDS: Solu-medROL 40MG VIAL IVP SCH (09:00)
--- NOTE | 2024-03-14 09:07 | PN ---
[facility] PROGRESS NOTE Date of Service: Mar 14, 2024 Time of Service: 08:57 SUBJECTIVE: [ ] This is a 78-year-old female that presents in ED with chief complaints of persistent cough nausea and vomiting and diarrhea. Onset for one-week. She reports that [place] and most acquaintances have similar symptoms. She reports diarrhea subsided. She denies fever chills. However, continues with dyspnea with minimal exertion and productive cough and decided to come ED for further evaluation. March 11, 2024 patient is seen and examined earlier this morning. Reviewed chart imaging. Patient with a low H&H 7.0 patient is asymptomatic we will get H&H every 6 hours this morning reports no active bleeding. However she did have severe diarrhea prior to this admission. Occult stool blood and consult GI patient is doing much better today compared to yesterday. On nasal cannula 2 L physical therapy to ambulate patient we will going to attempt to titrate oxygen. 03/12/24 patient is seen and examined with Patient was sitting on the edge of the bed patient continues on oxygen supplemental we will titrate as tolerated. Physical therapy to work with patient. Status post blood transfusion 1 unit hemoglobin this morning 7.9. Occult blood negative GI on board we will also consult Hematology labs: flow cytometry /anemia workup done. March 13, 2024 patient is seen and examined with Dr. Byers patient is scheduled for EGD this morning. Patient continues on oxygen supplemental. 6 minute walk for possible home oxygen if needed. 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 Leukocytosis most likely induced by IV steroids. ELVA resolved March 14, 2024 patient is seen and examined with Dr. Byers. Reviewed chart, she oriented x3, Status post EGD findings nonbleeding gastric ulcer with a clean ulcer base biopsy, gastritis, large hiatal hernia. GI recommendations no ibuprofen naproxen nonsteroidal anti inflammatory drugs, Protonix 40 mg p.o. daily and repeat upper EGD in two months and outpatient colonoscopy. Patient continues to desaturate on room air. CT chest no evidence of PE. 6 minute walk pending . Leukocytosis most likely induced by IV steroids patient has been af ebrile. Hematology started patient on Venofer. spoke with pulmologist nurse practitioner: plan of care. REVIEW OF SYSTEMS CONSTITUTIONAL: Denies fevers, chills, or night sweats. No unintentional weight loss reported. NEUROLOGICAL: Denies headache, amaurosis fugax, motor weakness, sensory deficit, vertigo/spinning sensation, gait abnormalities, or tremors. ENT: No hearing loss, otalgia, otorrhea, rhinitis, rhinorrhea, hoarseness, or sore throat. CARDIOVASCULAR: Denies any exertional angina, dyspnea on exertion, orthopnea, paroxysmal nocturnal dyspnea, palpitations, life-threatening arrhythmias, claudication. PULMONARY: Denies any shortness of breath, cough, phlegm/sputum, hemoptysis, pleuritic chest pain. SLEEP: Denies morning headaches, daytime somnolence or napping. Denies difficulty falling asleep, staying asleep, waking from sleep. Denies knowledge of snoring. GASTROINTESTINAL: Denies any type of dysphagia to either liquids or solids. Denies nausea, vomiting, pyrosis, early satiety, abdominal pain, diarrhea, constipation, or changes in stool consistency or caliber. Denies coffee-ground emesis, hematemesis, hematochezia, or melanotic stools. GENITOURINARY: Denies frequency, urgency, nocturia, hematuria or incontinence (Storage/Irritative symptoms.) Low urinary stream, straining to void, urinary intermittency or hesitancy, splitting of the voiding stream, terminal dribbling. ENDOCRINOLOGIC: Denies polyuria, polydipsia, polyphagia or heat/cold intolerances. HEMATOLOGIC: Denies thrombophilia/previous clots, or coagulopathy/bleeding disorders. ONCOLOGIC: Denies personal history of malignancy. DERMATOLOGIC: Denies rashes or pruritus. PSYCHIATRIC: Denies any suicidal or homicidal ideation. Denies hallucinations. PHYSICAL EXAM GENERAL APPEARANCE: The patient is awake, alert, and oriented, in no acute cardiopulmonary distress. NEUROLOGICAL: Cranial nerves II-XII grossly intact. Motor is 5/5 in bilateral upper and lower extremities proximal to distal. No sensory deficits. HEENT: Face is symmetric. Pupils are equal and reactive. Extraocular movements are intact. NECK: Supple. No JVD. No thyromegaly. No submental, submandibular, pre- /postauricular, occipital or supraclavicular lymphadenopathy. CHEST: Normal chest expansion. No Telemetry. LUNGS: Absence of any rales, rhonchi or any wheezing. CARDIOVASCULAR: Regular. S1 and S2 normal. No appreciable rubs, murmurs or gallops. ABDOMEN: Soft, nontender, and nondistended. There is no rebound, voluntary g uarding, or rigidity. : Deferred. No Ba. EXTREMITIES: Non-edematous and not cyanotic. No clubbing. Good capillary refill. SKIN: No skin breakdown. Vital Signs (last 8hr) Date Time Temp Pulse Resp B/P (MAP) Pulse Ox O2 Delivery O2 Flow Rate FiO2 03/14/24 07:56 99 Nasal Cannula* 2 28 03/14/24 06:54 75 20 03/14/24 06:54 75 20 N/Cannula Low lpm 2.0 28 03/14/24 04:00 97.9 87 18 155/90 96 Nasal Cannula 2.0 LABS: Laboratory: Test 03/14/24 03:40 Range/Units White Blood Count 18.3 H 4.8-10.8 K/uL Red Blood Count 3.57 L 4.00-5.50 MIL/uL Hemoglobin 7.8 L 12.0-16.0 g/dL Hematocrit 26.0 L 36-48 % Mean Corpuscular Volume 72.8 L 79-99 fL Mean Corpuscular Hemoglobin 21.8 L 27.0-33.0 pg Mean Corpuscular Hemoglobin Concent 30.0 L 32.0-36.0 g/dL Red Cell Distribution Width 17.8 H 11.0-15.5 % Platelet Count 460 H 130-400 K/uL Mean Platelet Volume 9.5 7.5-10.5 fL Immature Granulocyte % (Auto) 8.4 H 0-1 % Neutrophils (%) (Auto) 85.0 H 40.0-77.0 % Lymphocytes (%) (Auto) 3.0 L 21.0-51.0 % Monocytes (%) (Auto) 3.3 3.0-13.0 % Eosinophils (%) (Auto) 0.0 0.0-8.0 % Basophils (%) (Auto) 0.3 0.0-5.0 % Neutrophils # (Auto) 15.5 H 1.8-7.7 K/uL Lymphocytes # (Auto) 0.6 L 1.0-4.8 K/uL Monocytes # (Auto) 0.6 0.1-1.0 K/uL Eosinophils # (Auto) 0.00 0.00-0.70 K/uL Basophils # (Auto) 0.05 0.00-0.20 K/uL Absolute Immature Granulocyte (auto 1.54 H 0-1 K/uL Nucleated Red Blood Cells 0.2 H 0.0-0.19 % Sodium Level 146 H 136-145 mmol/L Potassium Level 3.8 3.5-5.1 mmol/L Chloride Level 110 101-111 mmol/L Carbon Dioxide Level 29 21-32 mmol/L Blood Urea Nitrogen 29 H 7-18 mg/dL Creatinine 0.8 0.5-1.0 mg/dL Glomerular Filtration Rate Calc 76 >90 mL/min Random Glucose 118 H 70-105 mg/dL Total Calcium 8.8 8.5-10.1 mg/dL Magnesium Level 2.30 1.80-2.40 mg/dL Total Bilirubin 0.3 0.2-1.0 mg/dL Aspartate Amino Transf (AST/SGOT) 16 10-37 U/L Alanine Aminotransferase (ALT/SGPT) 15 12-78 U/L Alkaline Phosphatase 60 50-136 U/L Total Protein 6.2 6.0-8.3 g/dL Albumin 2.0 L 3.5-5.0 g/dL Current Medications Medications (Trade) Dose Ordered Sig/Jesus Route PRN Reason Start Time Stop Time Status Last Admin Dose Admin Acetaminophen (TYLenol 325MG TAB) 650 mg Q4H PRN PO TEMPERATURE GREATER THAN 101.5 03/10/24 07:30 04/09/24 07:29 03/12/24 23:56 650 MG Acetylcysteine (MUComyst 10% 4ML) 400mg = 4ml [id number] 03/10/24 12:00 04/09/24 11:59 03/14/24 06:50 400 MG Albuterol (DUOneb) 1 UDVIAL [id number] 03/10/24 12:00 04/09/24 11:59 03/14/24 06:50 1 UDVIAL Amlodipine Besylate (NorvASC 5MG TAB) 5 mg DAILY PO 03/13/24 09:00 04/12/24 08:59 03/14/24 08:27 5 MG Atorvastatin Calcium (LIPItor 20MG) 20 mg HS PO 03/12/24 21:00 12/13/24 20:59 03/13/24 19:55 20 MG Azithromycin 250 ml @ 250 mls/hr Q24H IVPB 03/10/24 05:00 03/10/24 07:39 DC 03/10/24 05:41 250 MLS/HR Azithromycin 250 ml @ 250 mls/hr Q24H IVPB 03/11/24 08:00 03/21/24 07:59 03/14/24 08:27 250 MLS/HR Budesonide (Pulmicort 0.5 Mg/2ml) 0.5 mg BIDRESP IH 03/10/24 10:30 04/09/24 10:29 03/14/24 06:50 0.5 MG Ceftriaxone Sodium (ROCEphine 1G INJ) 1 gm Q24H IVPB 03/11/24 08:00 03/10/24 10:20 DC Folic Acid (FOLic ACID 1 MG TABLET) 1 mg DAILY PO 03/13/24 09:00 04/12/24 08:59 03/14/24 08:27 1 MG Guaifenesin/ Dextromethorphan (RobiTUSSin DM 200/20MG 10ML) 5 ml Q4H PRN PO COUGH 03/10/24 07:30 04/09/24 07:29 Heparin Sodium (Porcine) (HEParin 5,000 UNIT VIAL) 5,000 unit Q12H SQ 03/10/24 16:30 04/09/24 16:29 03/11/24 04:35 5,000 UNIT Hydralazine HCl (APRESOLine 20MG INJ) 5 mg Q4H PRN IV ADMINISTER FOR SBP > 160 03/10/24 08:30 04/09/24 08:29 Iron Sucrose (VenoFER) 200 mg DAILY IV 03/13/24 14:00 03/13/24 16:10 DC Iron Sucrose (VenoFER) 200 mg Q24H IV 03/13/24 16:30 03/15/24 20:00 03/13/24 16:21 200 MG Methylprednisolone Sodium Succinate (Solu-medROL 40MG) 40 mg Q8H IVP 03/10/24 07:30 03/10/24 07:39 DC Methylprednisolone Sodium Succinate (Solu-medROL 40MG) 40 mg Q8H IVP 03/10/24 07:30 04/09/24 07:29 03/14/24 08:27 40 MG Metronidazole/ Sodium Chloride 100 ml @ 100 mls/hr Q8H IVPB 03/10/24 08:30 03/10/24 10:15 DC 03/10/24 09:36 100 MLS/HR Montelukast Sodium (SinguLAIR) 10 mg DAILY PO 03/10/24 09:00 04/09/24 08:59 03/14/24 08:27 10 MG Pantoprazole Sodium (PROTonix 40MG INJ) 40 mg DAILY IVP 03/10/24 09:00 04/09/24 08:59 03/14/24 08:26 40 MG Piperacillin Sod/ Tazobactam Sod (Zosyn 3.375gm+NS 50ml) 3.375 gm Q8H IV 03/10/24 10:30 03/20/24 10:29 03/14/24 02:07 3.375 GM Potassium Chloride 100 ml @ 100 mls/hr AD PRN IV POTASSIUM PROTOCOL 03/10/24 10:30 03/10/24 10:26 DC Potassium Chloride 100 ml @ 100 mls/hr AD PRN IV POTASSIUM PROTOCOL 03/10/24 10:30 04/09/24 10:29 Potassium Chloride (K-Dur 10meq Sr Tab) 10 meq AD PRN PO POTASSIUM PROTOCOL 03/10/24 10:30 04/09/24 10:29 Potassium Chloride (KCl 10% Elixir 20meq/15ml) 10 meq AD PRN PO POTASSIUM PROTOCOL 03/10/24 10:30 04/09/24 10:29 03/10/24 18:20 10 MEQ Sodium Chloride 1,000 ml @ 50 mls/hr Q20H IV 03/10/24 09:00 03/10/24 10:18 DC 03/10/24 09:36 50 MLS/HR DIAGNOSTICS / RADIOLOGY: [ ] ASSESSMENT: Sepsis: lactic acid 2.7, low blood pressure, RR: 27)POA acute resp failure with hypoxia POA elevated D dimer ruled out PE POA Acute gastroenteritis POA ELVA most likely CRF stage III POA resolved microcytic hypochromic. requiring blood transfusion POA electrolytes derangement: Hypokalemia hyponatremia POA Failure to strive POA Acute anemia not POA PLAN: [ ] admit to [facility] safety consultant: Pulmologist Foil Cutter, GI Sepsis: lactic acid 2.7, low blood pressure, RR: 27)POA acute resp failure with hypoxia POA - DuoNeb treatment with CPT, IV steroids titrate, Oxygen supplemental to keep O2 sat above 92% currently on room air we will get 6 minutes walk upon discharge - Abt's; Zosyn IV Zithromax IV; - IS usage while awake. - PRN: antitussive as needed for cough, Montelukast 10 mg po daily - Aspiration precaution HOB at 45 degree at all time H&H every 6 hours occult blood status post blood transfusion today hemoglobin 7.4we will repeat at 2:00 p.m. GI following status post EGD recommendations Protonix 40 mg p.o. daily, repeat EGD in two months. Avoid NSAIDS. We will continue to monitor H&H transfuse to keep O2 sat > 7.0 , Hematology on board continues Venofer 200 mg IV daily oral supplements: folic acid 1 mg po daily, vitamin B12 1000 mcg p.o. daily.SPEP, UPEP and free light chain. If there is monoclonal protein possible on this admission: bone marrow biopsy. acute gastroenteritis; diarrhea stop: cancel PCR stool and ova/parasites Avoid NSAIDs creatinine improved GI soft bland diet Replace electrolytes as needed per protocol - PT services OOB to chair , fall precautions PRN: MEDICATIONS Tylenol 650 mg po every 4 hrs for fever Zofran 4 mg IV every 6 hrs for n/v Hydralazine 5 mg IV every 4 hrs systolic pressure > 160 Supportive measures: DVT ppx, GI ppx all questions answered Supervising MD: Dr. Byers c/d ATTESTATION BY PHYSICIAN I have seen and examined the patient. I reviewed the documentation, medical decision making, and treatment plan as noted by the mid-level provider above. I agree with the findings and plan of care. CHANELLE BYERS MD, ELIZABETH NP Mar 14, 2024 09:07
--- NOTE | 2024-03-14 09:51 | HMCIMG ---
US VENOUS DOPPLER BILATERAL REASON: DVT COMPARISON: None Technique: Bilateral venous doppler ultrasound was performed with spectral analysis and color flow imaging technique. FINDINGS: There is a normal appearance of the common femoral, deep femoral, the profunda femoris and popliteal veins. Proximal calf veins appear normal as well. There is normal response to compression and augmentation. There is no evidence of deep venous thrombosis. IMPRESSION: Normal bilateral lower extremity venous Doppler ultrasound.
--- NOTE | 2024-03-14 10:34 | PN ---
GASTROENTEROLOGY PROGRESS NOTE Date of Visit: Mar 14, 2024 Time of Visit: 10:34 Events / Notes: No acute events overnight. EGD with large hiatal hernia, likely cause of hematemesis Review of Systems: CONSTITUTIONAL: No malaise or change in sensation of wellbeing. ENMT: No rhinorrhea, otorrhea, sinus pain, ear ache. CARDIOVASCULAR: No angina, palpitations, orthopnea or paroxysmal dyspnea. RESPIRATORY: No SOB. GASTROINTESTINAL: No abdominal pain, nausea, vomiting, diarrhea, hematemesis, melena or change in the patient's habitual bowel movements consistency/number. GENITOURINARY: No dysuria, hematuria or change in bladder continence. MUSCULOSKELETAL: No new muscle pain or decrease in muscular strength. No new joint swelling, redness or tenderness. SKIN: No new rash. Physical Exam: GEN: Awake, alert, oriented in person, time and place, and in no acute distress. HEENT: No sinus tenderness. Tympanic membranes were not examined. No rhinorrhea. Oral pharyngeal mucosa is pink, moist and within normal limits. Neck is supple with no cervical lymphadenopathy, thyromegaly or JVD. CHEST: Inspection, palpation and percussion of the chest were unremarkable. Lung auscultation revealed normal breath sounds bilaterally. CARDIAC: PMI is within normal limits. Heart sounds are regular. Normal S1, S2. No gallop or murmur. ABD: Soft, non-tender and not distended. No peritoneal signs on palpation. No organomegaly. Normal bowel sounds. EXT: No cyanosis or clubbing. No edema. SKIN: Intact. No rashes. JOINTS: No evidence of synovitis or acute arthritis. NEURO: Alert and oriented to name, place and person. Cranial nerve examination is unremarkable. No focal motor deficits. Normal speech. Gait is normal. Strength is normal. Vital Signs (last 8hr) Date Time Temp Pulse Resp B/P (MAP) Pulse Ox O2 Delivery O2 Flow Rate FiO2 03/14/24 08:00 97.3 70 18 123/59 92 Nasal Cannula 2.0 03/14/24 07:56 99 Nasal Cannula* 2 28 03/14/24 06:54 75 20 03/14/24 06:54 75 20 N/Cannula Low lpm 2.0 28 03/14/24 04:00 97.9 87 18 155/90 96 Nasal Cannula 2.0 Laboratory: [ ] Laboratory: Test 03/14/24 03:40 Range/Units White Blood Count 18.3 H 4.8-10.8 K/uL Red Blood Count 3.57 L 4.00-5.50 MIL/uL Hemoglobin 7.8 L 12.0-16.0 g/dL Hematocrit 26.0 L 36-48 % Mean Corpuscular Volume 72.8 L 79-99 fL Mean Corpuscular Hemoglobin 21.8 L 27.0-33.0 pg Mean Corpuscular Hemoglobin Concent 30.0 L 32.0-36.0 g/dL Red Cell Distribution Width 17.8 H 11.0-15.5 % Platelet Count 460 H 130-400 K/uL Mean Platelet Volume 9.5 7.5-10.5 fL Immature Granulocyte % (Auto) 8.4 H 0-1 % Neutrophils (%) (Auto) 85.0 H 40.0-77.0 % Lymphocytes (%) (Auto) 3.0 L 21.0-51.0 % Monocytes (%) (Auto) 3.3 3.0-13.0 % Eosinophils (%) (Auto) 0.0 0.0-8.0 % Basophils (%) (Auto) 0.3 0.0-5.0 % Neutrophils # (Auto) 15.5 H 1.8-7.7 K/uL Lymphocytes # (Auto) 0.6 L 1.0-4.8 K/uL Monocytes # (Auto) 0.6 0.1-1.0 K/uL Eosinophils # (Auto) 0.00 0.00-0.70 K/uL Basophils # (Auto) 0.05 0.00-0.20 K/uL Absolute Immature Granulocyte (auto 1.54 H 0-1 K/uL Nucleated Red Blood Cells 0.2 H 0.0-0.19 % Sodium Level 146 H 136-145 mmol/L Potassium Level 3.8 3.5-5.1 mmol/L Chloride Level 110 101-111 mmol/L Carbon Dioxide Level 29 21-32 mmol/L Blood Urea Nitrogen 29 H 7-18 mg/dL Creatinine 0.8 0.5-1.0 mg/dL Glomerular Filtration Rate Calc 76 >90 mL/min Random Glucose 118 H 70-105 mg/dL Total Calcium 8.8 8.5-10.1 mg/dL Magnesium Level 2.30 1.80-2.40 mg/dL Total Bilirubin 0.3 0.2-1.0 mg/dL Aspartate Amino Transf (AST/SGOT) 16 10-37 U/L Alanine Aminotransferase (ALT/SGPT) 15 12-78 U/L Alkaline Phosphatase 60 50-136 U/L Total Protein 6.2 6.0-8.3 g/dL Albumin 2.0 L 3.5-5.0 g/dL Current Medications Medications (Trade) Dose Ordered Sig/Jesus Route PRN Reason Start Time Stop Time Status Last Admin Dose Admin Acetaminophen (TYLenol 325MG TAB) 650 mg Q4H PRN PO TEMPERATURE GREATER THAN 101.5 03/10/24 07:30 04/09/24 07:29 03/12/24 23:56 650 MG Acetylcysteine (MUComyst 10% 4ML) 400mg = 4ml [id number] IH 03/10/24 12:00 04/09/24 11:59 03/14/24 06:50 400 MG Albuterol (DUOneb) 1 UDVIAL [id number] IH 03/10/24 12:00 04/09/24 11:59 03/14/24 06:50 1 UDVIAL Amlodipine Besylate (NorvASC 5MG TAB) 5 mg DAILY PO 03/13/24 09:00 04/12/24 08:59 03/14/24 08:27 5 MG Atorvastatin Calcium (LIPItor 20MG) 20 mg HS PO 03/12/24 21:00 04/11/24 20:59 03/13/24 19:55 20 MG Azithromycin 250 ml @ 250 mls/hr Q24H IVPB 03/10/24 05:00 03/10/24 07:39 DC 03/10/24 05:41 250 MLS/HR Azithromycin 250 ml @ 250 mls/hr Q24H IVPB 03/11/24 08:00 03/21/24 07:59 03/14/24 08:27 250 MLS/HR Budesonide (Pulmicort 0.5 Mg/2ml) 0.5 mg BIDRESP IH 03/10/24 10:30 04/09/24 10:29 03/14/24 06:50 0.5 MG Ceftriaxone Sodium (ROCEphine 1G INJ) 1 gm Q24H IVPB 03/11/24 08:00 03/10/24 10:20 DC Folic Acid (FOLic ACID 1 MG TABLET) 1 mg DAILY PO 03/13/24 09:00 04/12/24 08:59 03/14/24 08:27 1 MG Guaifenesin/ Dextromethorphan (RobiTUSSin DM 200/20MG 10ML) 5 ml Q4H PRN PO COUGH 03/10/24 07:30 04/09/24 07:29 Heparin Sodium (Porcine) (HEParin 5,000 UNIT VIAL) 5,000 unit Q12H SQ 03/10/24 16:30 04/09/24 16:29 03/11/24 04:35 5,000 UNIT Hydralazine HCl (APRESOLine 20MG INJ) 5 mg Q4H PRN IV ADMINISTER FOR SBP > 160 03/10/24 08:30 04/09/24 08:29 Iron Sucrose (VenoFER) 200 mg DAILY IV 03/13/24 14:00 03/13/24 16:10 DC Iron Sucrose (VenoFER) 200 mg Q24H IV 03/13/24 16:30 03/15/24 20:00 03/13/24 16:21 200 MG Methylprednisolone Sodium Succinate (Solu-medROL 40MG) 40 mg Q12H9 IVP 03/14/24 09:00 04/09/24 07:29 Methylprednisolone Sodium Succinate (Solu-medROL 40MG) 40 mg Q8H IVP 03/10/24 07:30 03/10/24 07:39 DC Methylprednisolone Sodium Succinate (Solu-medROL 40MG) 40 mg Q8H IVP 03/10/24 07:30 03/14/24 08:59 DC 03/14/24 08:27 40 MG Metronidazole/ Sodium Chloride 100 ml @ 100 mls/hr Q8H IVPB 03/10/24 08:30 03/10/24 10:15 DC 03/10/24 09:36 100 MLS/HR Montelukast Sodium (SinguLAIR) 10 mg DAILY PO 03/10/24 09:00 04/09/24 08:59 03/14/24 08:27 10 MG Pantoprazole Sodium (PROTonix 40MG INJ) 40 mg DAILY IVP 03/10/24 09:00 04/09/24 08:59 03/14/24 08:26 40 MG Piperacillin Sod/ Tazobactam Sod (Zosyn 3.375gm+NS 50ml) 3.375 gm Q8H IV 03/10/24 10:30 03/20/24 10:29 03/14/24 02:07 3.375 GM Potassium Chloride 100 ml @ 100 mls/hr AD PRN IV POTASSIUM PROTOCOL 03/10/24 10:30 03/10/24 10:26 DC Potassium Chloride 100 ml @ 100 mls/hr AD PRN IV POTASSIUM PROTOCOL 03/10/24 10:30 04/09/24 10:29 Potassium Chloride (K-Dur 10meq Sr Tab) 10 meq AD PRN PO POTASSIUM PROTOCOL 03/10/24 10:30 04/09/24 10:29 Potassium Chloride (KCl 10% Elixir 20meq/15ml) 10 meq AD PRN PO POTASSIUM PROTOCOL 03/10/24 10:30 04/09/24 10:29 03/10/24 18:20 10 MEQ Sodium Chloride 1,000 ml @ 50 mls/hr Q20H IV 03/10/24 09:00 03/10/24 10:18 DC 03/10/24 09:36 50 MLS/HR Diagnostics / Radiology: [COPY/PASTE HERE IF NO REPORTS PLEASE DELETE SECTION] Assessment: Hematemesis Hiatal hernia MICHAEL Plan: Outpatient colonoscopy JYOTI [employer] Mar 14, 2024 10:34
--- NOTE | 2024-03-14 16:20 | PN ---
This is a 78-year-old female that presents in ED with chief complaints of persistent cough nausea and vomiting and diarrhea. Onset for one-week. She reports that [place] and most acquaintances have similar symptoms. She reports diarrhea subsided. She denies fever chills. However, continues with dyspnea with minimal exertion and productive cough and decided to come ED for further evaluation. The patient was seen in ED patient's has chest discomfort however troponin was negative most likely musculoskeletal secondary to persistent cough and nausea vomiting. Patient with anemia hemoglobin level now at 7.6 g/deciliter. Peripheral blood show microcytic hypochromic. There was also rouleaux phenomena. Patient was seen by GI and EGD was done PHYSICAL EXAM GENERAL APPEARANCE: The patient is awake, alert, and oriented, in no acute cardiopulmonary distress. NEUROLOGICAL: Cranial nerves II-XII grossly intact. Motor is 5/5 in bilateral upper and lower extremities proximal to distal. No sensory deficits. HEENT: Face is symmetric. Pupils are equal and reactive. Extraocular movements are intact. NECK: Supple. No JVD. No thyromegaly. No submental, submandibular, pre- /postauricular, occipital or supraclavicular lymphadenopathy. CHEST: Normal chest expansion. No Telemetry. LUNGS: Absence of any rales, rhonchi or any wheezing. CARDIOVASCULAR: Regular. S1 and S2 normal. No appreciable rubs, murmurs or gallops. ABDOMEN: Soft, nontender, and nondistended. There is no rebound, voluntary guarding, or rigidity. : Deferred. No Ba. EXTREMITIES: Non-edematous and not cyanotic. No clubbing. Good capillary refill. SKIN: No skin breakdown. Assessment 1. Anemia 2. Chronic renal insufficiency 3. Leukocytosis 4. Sepsis 5. Failure to thrive 6. Possible GI bleeding Plan 1. The anemia is multifactorial including possibly anemia of chronic disease and iron deficiency anemia. Peripheral blood smear showed red blood cells to be normocytic normochromic. There was no fragment cell or schistocyte. There is no teardrop cell. There is no pelger-Huet cell. White blood cell with no blasts. Platelet was normal in morphology and count. 2. There was hypersegmented neutrophils. Continue on folic acid 1 mg p.o. daily and vitamin B12 1000 mcg p.o. daily. 3. 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 We will ask for SPEP, UPEP and free light chain. If there is monoclonal protein we will do a bone marrow biopsy. 4. Continue on IV iron while in the hospital with Venofer 200 mg IV daily While patient in hospital. Then this patient may be will need oral iron every other day when discharged home 5. Patient supposed to have EGD done. Will follow-up with the result closely 6. No need for blood product transfusion at this time. Vitals/Labs Vital Signs Date Time Temp Pulse Resp B/P (MAP) Pulse Ox O2 Delivery O2 Flow Rate FiO2 03/14/24 12:12 100 18 21 135 24 21 03/14/24 11:18 N/A Room Air 03/14/24 08:00 97.3 123/59 92 2.0 Laboratory Tests 03/14/24 03:40 Medications Current Medications Albuterol 1 UDVIAL ONCE ONCE IH Last administered on 03/10/24at 03:56; Start 03/10/24 at 03:00; Stop 03/10/24 at 03:01; Status DC Methylprednisolone Sodium Succinate 60 mg ONCE ONCE IVP Last administered on 03/10/24at 02:52; Start 03/10/24 at 03:00; Stop 03/10/24 at 03:01; Status DC Guaifenesin/ Codeine Phosphate 5 ml ONCE ONCE PO Last administered on 03/10/24at 02:52; Start 03/10/24 at 03:00; Stop 03/10/24 at 03:01; Status DC Ondansetron HCl 4 mg STK-MED ONCE .ROUTE; Start 03/10/24 at 02:58; Stop 03/10/24 at 02:59; Status DC Ondansetron HCl 4 mg ONCE ONCE IVP Last administered on 03/10/24at 03:19; Start 03/10/24 at 03:30; Stop 03/10/24 at 03:31; Status DC Sodium Chloride 500 ml @ 0 mls/hr ONCE ONCE IV Last administered on 03/10/24at 05:28; Start 03/10/24 at 05:00; Stop 03/10/24 at 05:01; Status DC Azithromycin 250 ml @ 250 mls/hr Q24H IVPB Last administered on 03/10/24at 05:41; Start 03/10/24 at 05:00; Stop 03/10/24 at 07:39; Status DC Ceftriaxone Sodium 1 gm ONCE ONCE IVPB Last administered on 03/10/24at 05:27; Start 03/10/24 at 05:00; Stop 03/10/24 at 05:01; Status DC Albuterol 1 UDVIAL ONCE ONCE IH Last administered on 03/10/24at 05:08; Start 03/10/24 at 05:00; Stop 03/10/24 at 05:01; Status DC Morphine Sulfate 2 mg ONCE ONCE IVP Last administered on 03/10/24at 05:28; Start 03/10/24 at 05:00; Stop 03/10/24 at 05:01; Status DC Potassium Bicarbonate 25 meq ONCE ONCE PO Last administered on 03/10/24at 05:28; Start 03/10/24 at 05:00; Stop 03/10/24 at 05:01; Status DC Pantoprazole Sodium 40 mg DAILY IVP Last administered on 03/14/24at 08:26; Start 03/10/24 at 09:00; Stop 04/09/24 at 08:59 Acetaminophen 650 mg Q4H PRN PO Last administered on 03/12/24at 23:56; Start 03/10/24 at 07:30; Stop 04/09/24 at 07:29 Albuterol 1 UDVIAL [id number] IH Last administered on 03/14/24at 11:17; Start 03/10/24 at 12:00; Stop 04/09/24 at 11:59 Methylprednisolone Sodium Succinate 40 mg Q8H IVP Last administered on 03/14/24at 08:27; Start 03/10/24 at 07:30; Stop 03/14/24 at 08:59; Status DC Guaifenesin/ Dextromethorphan 5 ml Q4H PRN PO; Start 03/10/24 at 07:30; Stop 04/09/24 at 07:29 Methylprednisolone Sodium Succinate 40 mg Q8H IVP; Start 03/10/24 at 07:30; Stop 03/10/24 at 07:39; Status DC Acetylcysteine 400mg = 4ml [id number] IH Last administered on 03/14/24at 11:17; Start 03/10/24 at 12:00; Stop 04/09/24 at 11:59 Ceftriaxone Sodium 1 gm Q24H IVPB; Start 03/11/24 at 08:00; Stop 03/10/24 at 10:20; Status DC Azithromycin 250 ml @ 250 mls/hr Q24H IVPB Last administered on 03/14/24at 08:27; Start 03/11/24 at 08:00; Stop 03/21/24 at 07:59 Montelukast Sodium 10 mg DAILY PO Last administered on 03/14/24at 08:27; Start 03/10/24 at 09:00; Stop 04/09/24 at 08:59 Metronidazole/ Sodium Chloride 100 ml @ 100 mls/hr Q8H IVPB Last administered on 03/10/24at 09:36; Start 03/10/24 at 08:30; Stop 03/10/24 at 10:15; Status DC Hydralazine HCl 5 mg Q4H PRN IV; Start 03/10/24 at 08:30; Stop 04/09/24 at 08:29 Sodium Chloride 1,000 ml @ 50 mls/hr Q20H IV Last administered on 03/10/24at 09:36; Start 03/10/24 at 09:00; Stop 03/10/24 at 10:18; Status DC Morphine Sulfate 2 mg ONCE ONCE IVP Last administered on 03/10/24at 10:31; Start 03/10/24 at 10:30; Stop 03/10/24 at 10:31; Status DC Piperacillin Sod/ Tazobactam Sod 3.375 gm Q8H IV Last administered on 03/14/24at 12:24; Start 03/10/24 at 10:30; Stop 03/20/24 at 10:29 Budesonide 0.5 mg BIDRESP IH Last administered on 03/14/24at 06:50; Start 03/10/24 at 10:30; Stop 04/09/24 at 10:29 Potassium Chloride 100 ml @ 100 mls/hr AD PRN IV; Start 03/10/24 at 10:30; Stop 04/09/24 at 10:29 Potassium Chloride 10 meq AD PRN PO Last administered on 03/10/24at 18:20; Start 03/10/24 at 10:30; Stop 04/09/24 at 10:29 Potassium Chloride 10 meq AD PRN PO; Start 03/10/24 at 10:30; Stop 04/09/24 at 10:29 Potassium Chloride 100 ml @ 100 mls/hr AD PRN IV; Start 03/10/24 at 10:30; Stop 03/10/24 at 10:26; Status DC Furosemide 20 mg ONCE ONCE IV Last administered on 03/10/24at 10:31; Start 03/10/24 at 10:30; Stop 03/10/24 at 10:31; Status DC Sodium Chloride 4 ml STK-MED ONCE IH Last administered on 03/10/24at 11:26; Start 03/10/24 at 11:25; Stop 03/10/24 at 11:25; Status DC Heparin Sodium (Porcine) 5,000 unit Q12H SQ Last administered on 03/11/24at 04:35; Start 03/10/24 at 16:30; Stop 03/14/24 at 15:04; Status DC Sodium Chloride 4 ml STK-MED ONCE IH Last administered on 03/10/24at 19:40; Start 03/10/24 at 18:42; Stop 03/10/24 at 18:42; Status DC Sodium Chloride 4 ml STK-MED ONCE IH Last administered on 03/10/24at 23:34; Start 03/10/24 at 22:50; Stop 03/10/24 at 22:50; Status DC Sodium Chloride 4 ml STK-MED ONCE IH; Start 03/10/24 at 22:50; Stop 03/10/24 at 22:50; Status DC Amlodipine Besylate 5 mg DAILY PO Last administered on 03/14/24at 08:27; Start 03/13/24 at 09:00; Stop 04/12/24 at 08:59 Atorvastatin Calcium 20 mg HS PO Last administered on 03/13/24at 19:55; Start 03/12/24 at 21:00; Stop 04/11/24 at 20:59 Folic Acid 1 mg DAILY PO Last administered on 03/14/24at 08:27; Start 03/13/24 at 09:00; Stop 04/12/24 at 08:59 Iron Sucrose 200 mg DAILY IV; Start 03/13/24 at 14:00; Stop 03/13/24 at 16:10; Status DC Propofol 200 mg STK-MED ONCE IV; Start 03/13/24 at 12:29; Stop 03/13/24 at 12:29; Status DC Iron Sucrose 200 mg Q24H IV Last administered on 03/14/24at 15:04; Start 03/13/24 at 16:30; Stop 03/15/24 at 20:00 Iohexol 75 ml STK-MED ONCE IV; Start 03/13/24 at 23:18; Stop 03/13/24 at 23:18; Status DC Methylprednisolone Sodium Succinate 40 mg Q12H9 IVP; Start 03/14/24 at 09:00; Stop 04/09/24 at 07:29 JEANNINE MANLEY MD Mar 14, 2024 16:20
--- NOTE | 2024-03-14 16:54 | PN ---
[facility] PROGRESS NOTE Date Patient Seen: Mar 14, 2024 Time of Visit: 16:43 Supervising Physician: ELIEZER LINARES MD Consulting Physician: Lalitha group Outpatient Specialists: [ ] Inpatient Consults: [ ] PROBLEM LIST: - Hypotension on admission secondary to volume depletion - Acute dehydration admission secondary to acute gastroenteritis - Hypertension - Hypertensive heart disease - Morbid obesity, BMI 35.5 - iron deficiency anemia - acute hypoxic respiratory failure on admission - suspected viral upper airway infection -COVID - influenza - adult failure to thrive - Acute kidney injury on admission on top of chronic kidney disease INTERVAL HISTORY: 03/14/2024 Patient is seen and evaluated Clinical chart reviewed, events of the last 24 hours noted CTA of the chest negative for PE USG Doppler of the legs, negative for DVT Today, she has less cough, dry, no hemoptysis Appetite is good Orthostatics negative Blood pressure, more stable Afebrile, no seizures REVIEW OF SYSTEMS: 12 point ROS reviewed with patient. Pertinent positives mentioned above. Otherwise negative. PHYSICAL EXAM: GENERAL: alert, weak, awake oriented x 3 HEENT: EOMI, Sclera non icteric, moist mucosa NECK: Supple, no JVD, trachea midline LUNGS: Clear breath sounds bilaterally. Diminished bibasilar area HEART: Regular rate and rhythm. Normal S1 and S2, without murmurs ABD: Large body habitus EXT: No clubbing cyanosis 3+ pitting edema NEURO: Alert and oriented to person, follows commands Vital Signs (last 8hr) Date Time Temp Pulse Resp B/P (MAP) Pulse Ox O2 Delivery O2 Flow Rate FiO2 03/14/24 12:12 100 18 21 135 24 21 03/14/24 11:19 70 20 03/14/24 11:18 70 20 N/A Room Air 21 LABS: Hematology Labs: Test 03/14/24 03:40 Range/Units White Blood Count 18.3 H 4.8-10.8 K/uL Red Blood Count 3.57 L 4.00-5.50 MIL/uL Hemoglobin 7.8 L 12.0-16.0 g/dL Hematocrit 26.0 L 36-48 % Mean Corpuscular Volume 72.8 L 79-99 fL Mean Corpuscular Hemoglobin 21.8 L 27.0-33.0 pg Mean Corpuscular Hemoglobin Concent 30.0 L 32.0-36.0 g/dL Red Cell Distribution Width 17.8 H 11.0-15.5 % Platelet Count 460 H 130-400 K/uL Mean Platelet Volume 9.5 7.5-10.5 fL Immature Granulocyte % (Auto) 8.4 H 0-1 % Neutrophils (%) (Auto) 85.0 H 40.0-77.0 % Lymphocytes (%) (Auto) 3.0 L 21.0-51.0 % Monocytes (%) (Auto) 3.3 3.0-13.0 % Eosinophils (%) (Auto) 0.0 0.0-8.0 % Basophils (%) (Auto) 0.3 0.0-5.0 % Neutrophils # (Auto) 15.5 H 1.8-7.7 K/uL Lymphocytes # (Auto) 0.6 L 1.0-4.8 K/uL Monocytes # (Auto) 0.6 0.1-1.0 K/uL Eosinophils # (Auto) 0.00 0.00-0.70 K/uL Basophils # (Auto) 0.05 0.00-0.20 K/uL Absolute Immature Granulocyte (auto 1.54 H 0-1 K/uL Nucleated Red Blood Cells 0.2 H 0.0-0.19 % Chemistry Labs: Test 03/14/24 03:40 Range/Units Sodium Level 146 H 136-145 mmol/L Potassium Level 3.8 3.5-5.1 mmol/L Chloride Level 110 101-111 mmol/L Carbon Dioxide Level 29 21-32 mmol/L Blood Urea Nitrogen 29 H 7-18 mg/dL Creatinine 0.8 0.5-1.0 mg/dL Glomerular Filtration Rate Calc 76 >90 mL/min Random Glucose 118 H 70-105 mg/dL Total Calcium 8.8 8.5-10.1 mg/dL Magnesium Level 2.30 1.80-2.40 mg/dL Total Bilirubin 0.3 0.2-1.0 mg/dL Aspartate Amino Transf (AST/SGOT) 16 10-37 U/L Alanine Aminotransferase (ALT/SGPT) 15 12-78 U/L Alkaline Phosphatase 60 50-136 U/L Total Protein 6.2 6.0-8.3 g/dL Albumin 2.0 L 3.5-5.0 g/dL DIAGNOSTICS / RADIOLOGY RESULTS: [ Imaging scans reviewed at bedside with nurse] PLAN No evidence of PE or DVT Hemodynamically stable and medically cleared from pulmonary standpoint for discharge from hospital NEURO: Minimize central acting medications as possible. Maintain fall precautions, adequate lighting during the day PULMONARY: Supplemental 02 as needed. Maintain aspiration precautions at all times CARDIOVASCULAR: Follow hemodynamics. Vital signs per facility protocol GI & NUTRITION: Continue with nutritional support. Continue stool softeners and laxatives as needed. KIDNEYS & ELECTROLYTES: Strict monitoring of intake, output and overall fluid balance. Avoid nephrotoxic medications to the extent possible. Medications to be dosed according to renal function. Monitor electrolytes and replace as needed ENDOCRINE: Maintain blood glucose between 100-180 at all times. Hypoglycemia protocol in place INFECTIOUS DISEASE: Trend temperature, WBC and procalcitonin level Follow cultures, deescalate antibiotics as soon as possible. Panculture if new onset fever ONCOLOGY/HEMATOLOGY/COAGULATION: Monitor for s/s of bleeding Monitor hemoglobin, coagulation studies as needed SKIN: Pressure ulcer prevention per facility protocol Specialty mattress ORTHO/REHAB: Continue PT/OT Prophylaxis: Continue GI and DVT prophylaxis Code Status: Full Resuscitation Disposition: TBD by PCP ATTESTATION BY PHYSICIAN The clinical note was scribed by Xavier Buchanan BSc on my behalf and I attest to the accuracy of the note Carin Linares MD I personally scribed for CARIN LINARES MD ([email or web address]) on 03/14/24 at 16:54. Electronically submitted by Xavier Buchanan ([email or web address]). CARIN LINARES MD Mar 14, 2024 16:54
[2024-03-14] MEDS: guaiFENesin-DM 200/20MG 10ML PO PRN (17:42)
[2024-03-15] VITALS (8 sets, daily range): BP systolic 111–144; BP diastolic 59–94; PULSE 69–96; RESP 18–20; TEMP 97.9–98.2; O2SAT 93
--- NOTE | 2024-03-15 10:13 | DS ---
Discharge Summary Hospital Course Summary: This is a 78-year-old female that presents in ED with chief complaints of persistent cough nausea and vomiting and diarrhea. Onset for one-week. She reports that [place] and most acquaintances have similar symptoms. She reports diarrhea subsided. She denies fever chills. However, continues with dyspnea with minimal exertion and productive cough and decided to come ED for further evaluation. March 11, 2024 patient is seen and examined earlier this morning. Reviewed chart imaging. Patient with a low H&H 7.0 patient is asymptomatic we will get H&H every 6 hours this morning reports no active bleeding. However she did have severe diarrhea prior to this admission. Occult stool blood and consult GI patient is doing much better today compared to yesterday. On nasal cannula 2 L physical therapy to ambulate patient we will going to attempt to titrate oxygen. 03/12/24 patient is seen and examined with Patient was sitting on the edge of the bed patient continues on oxygen supplemental we will titrate as tolerated. Physical therapy to work with patient. Status post blood transfusion 1 unit hemoglobin this morning 7.9. Occult blood negative GI on board we will also consult Hematology labs: flow cytometry /anemia workup done. March 13, 2024 patient is seen and examined with Dr. Pablo patient is scheduled for EGD this morning. Patient continues on oxygen supplemental. 6 minute walk for possible home oxygen if needed. supervisor [employer]'s appreciated input: started the patient on Venofer IV Labs reviewed hemoglobin 7.6 hematocrit 24.9. Leukocytosis most likely induced by IV steroids. ELVA resolved March 14, 2024 patient is seen and examined with Dr. Pablo. Reviewed chart, she oriented x3, Status post EGD findings nonbleeding gastric ulcer with a clean ulcer base biopsy, gastritis, large hiatal hernia. GI recommendations no ibuprofen naproxen nonsteroidal anti inflammatory drugs, Protonix 40 mg p.o. daily and repeat upper EGD in two months and outpatient colonoscopy. Patient continues to desaturate on room air. CT chest no evidence of PE. 6 minute walk pending . Leukocytosis most likely induced by IV steroids patient has been afebrile. Hematology started patient on Venofer. spoke with pulmologist nurse practitioner: plan of care. During the course patient was seen by GI patient underwent EGD revealed gastritis, hiatal hernia. Patient will need outpatient colonoscopy. On this admission patient received blood transfusion 1 unit. And IV Venofer received 3 doses she was also followed by supervisor [facility] that also started her on folic acid and vitamin B12. critical team follow patient CTA of the chest negative for PE venous Dopplers of the leg negative for DVT orthostatic negative. Patient did not med criteria for home oxygen. Patient will be discharged on Medrol Dosepak, azithromycin for five days. Procedure(s): REASON: SOB ORDERING PHYSICIAN: JUAN MANUEL SNYDER NP PROCEDURE: ECHO [facility] - ECHO 2-D COMPLETE APPROVED REPORT EXAM: Two-dimensional and M-mode echocardiogram with Doppler and color Doppler. INDICATION ICD: Shortness of breath R06.02 2D Dimensions RVDd 5.1 cm LVEF(%) 65.3 (>50%) LVED Vol(simp.) 98.0 mL IVSd 1.0 (0.7-1.1cm) FS(%) 36 % LVES Vol(simp.) 33.0 mL LVDd 5.0 (3.8-5.6cm) LA (2D) 4.2 (1.6-4.0cm) LVEF(%, simp.) 66 % PWd 1.1 (0.7-1.1cm) Ao Root(2D) 3.1 (2.0-3.7cm) LA ESV INDEX (4CH) 70.50 mL/m2 IVSs 1.6 cm LVOT diam 2.3 (1.8-2.4cm) LA ESV INDEX (2CH) 30.80 mL/m2 LVDs 3.2 (2.5-4.0cm) IVC diam 1.6 cm LA ESV INDEX (BP) 49.50 mL/m2 PWs 1.4 cm Deformation Strain Apical 4 -23.0 % Apical 2 -11.0 % Apical 3 -20.0 % Global Strain -17.0 % M-Mode Dimensions EPSS 0.9 cm LA (MM) 5.6 (1.6-4.0cm) Ao Root(MM) 3.4 (2.0-3.7cm) Aortic Valve AoV VTI 0.3 m Ao Mean GR 12.0 mmHg LVOT VTI 0.23 m AMAURI (VMAX) 2.8 cm2 AMAURI (VTI) 2.8 cm2 Mitral Valve MV E Vmax 94.3 cm/s DECEL Time 190 ms MV A Vmax 45.9 cm/s P 1/2 T 72 ms E/A ratio 2.1 MVA (PHT) 3.0 cm2 TDI E/E' Medial 15.0 E/E' Lateral 10.1 Medial E' Peak V 6.30 cm/s Lateral E' Peak V 9.30 cm/s Pulmonary Valve PV VTI 0.29 m PV Mean GR 7 mmHg Tricuspid Valve TR Vmax 2.4 m/s TR Peak GR 23.0 mmHg Left Ventricle The left ventricle is normal size. GLS -17%. There is normal left ventricular wall thickness. LVEF is 65-70%. Stage II diastolic dysfunction. Right Ventricle The right ventricle is moderately dilated. The right ventricular systolic function is mildly reduced. Atria The left atrium is moderately dilated. The right atrium size is normal. Aortic Valve The aortic valve is trileaflet, sclerotic without stenosis. No aortic regurgitation is present. There is no aortic valvular stenosis. Mitral Valve The mitral valve is normal in structure. There is no mitral valve regurgitation noted. There is no mitral valve stenosis. Tricuspid Valve The tricuspid valve is normal in structure. There is mild tricuspid valve regurgitation noted. Pulmonic Valve The pulmonary valve is normal in structure. There is no pulmonic valvular regurgitation. Great Vessels The aortic root is normal in size. The IVC is normal in size and collapses >50% with inspiration. Pericardium There is no pericardial effusion. Other Information Quality : Fair Rhythm : NSR Conclusion LVEF is 65-70%. Stage II diastolic dysfunction. The left atrium is moderately dilated. The right ventricle is moderately dilated. The right ventricular systolic function is mildly reduced. REASON: gi bleed ORDERING PHYSICIAN: JYOTI TRAVIS HOSE INSPECTOR AND PATCHER PROCEDURE: GIBLEED - NM GI BLOOD LOSS IMAG NM GI BLOOD LOSS IMAG REASON: gi bleed COMPARISON: None TECHNIQUE: Images are obtained following administration of 27 mCi technetium 99m tagged red blood cells. FINDINGS: Images demonstrate normal flow. Whole-body images at 5 minute intervals show normal soft tissue background. There is a small amount of renal excretion consistent with an tagged technetium. There are no focal abnormal accumulations to suggest active GI bleeding. IMPRESSION: 1. Negative GI bleeding scan. SERVICE [id number] REASON: PE PROTOCOL ORDERING PHYSICIAN: CARIN LINARES MD PROCEDURE: CHES PE - CT CHEST PE PROTOCOL WWO CONT CT CHEST PE PROTOCOL WWO CONT HISTORY: No additional history given. COMPARISON: None TECHNIQUE: CT angiography of the chest was performed. The study was performed using angiographic technique with maximum intensity projection reconstruction images. Patient was given 75 cc of Omnipaque through intravenous route. FINDINGS: No CT evidence of filling defect is seen to suggest pulmonary embolus. No CT evidence of aortic dissection is seen. Left lower lung subsegmental atelectasis changes are seen. No evidence of parenchymal disease is seen. No CT evidence of pleural effusion or pericardial effusion is seen. The heart is enlarged. There is a hiatal hernia. No evidence of adrenal mass is seen. Degenerative changes of the spine are noted. Post cholecystectomy changes are seen. IMPRESSION: 1. No CT evidence of acute pulmonary embolus is seen. Left lower lung subsegmental atelectasis. Hiatal hernia. REASON: DVT ORDERING PHYSICIAN: CARIN LINARES MD PROCEDURE: VENOUS SIDNEY - US VENOUS DOPPLER BILATERAL US VENOUS DOPPLER BILATERAL REASON: DVT COMPARISON: None Technique: Bilateral venous doppler ultrasound was performed with spectral analysis and color flow imaging technique. FINDINGS: There is a normal appearance of the common femoral, deep femoral, the profunda femoris and popliteal veins. Proximal calf veins appear normal as well. There is normal response to compression and augmentation. There is no evidence of deep venous thrombosis. IMPRESSION: Normal bilateral lower extremity venous Doppler ultrasound. Assessment/Plan: Discharged dx's; Sepsis: lactic acid 2.7, low blood pressure, RR: 27)POA acute resp failure with hypoxia POA elevated D dimer ruled out PE POA Acute gastroenteritis POA ELVA most likely CRF stage III POA resolved microcytic hypochromic. requiring blood transfusion POA status post EGD findings nonbleeding gastric ulcer with a clean ulcer base biopsy, gastritis, large hiatal hernia. 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 Danyelle Thorne 1-2 weeks, GI one wk;Outpatient colonoscopy PROCEDURES: EGD nonbleeding gastric ulcer with a clean ulcer base biopsy, gastritis, large hiatal hernia. IMAGING (S) report attached to summary : echo, CT chest Venous doppler, bleeding scan MICROBIOLOGY: report attached to summary; ACTIVITY: ab mary HOME MEDICATIONS remain the same CHANGES ON HOME MEDICATIONS NEW MEDICATIONS Albuterol Sulfate 2.5 Mg/0.5 Ml Vial.neb as negative for wheezing Azithromycin 500 Mg Tablet x3 more days Cyanocobalamin (Vitamin B-12) (Vitamin B-12) 1,000 Mcg Tablet daily Methylprednisolone (Medrol) 4 Mg Tab.ds.pk 6 on day 1 then reduce by one tablet daily until gone Protonix 40 mg po daily TEACHING: Instructed to avoid NSAIDS, naproxen family ibuprofen Emergency instructions: The patient was instructed to present to the nearest Emergency Department or call 911 should their symptoms return or worsen. New Medications: Albuterol Sulfate (Albuterol Sulfate) 2.5 Mg/0.5 Ml Vial.neb 2.5 MG IH DAILY PRN for wheezes for 30 Days, #1 INH Azithromycin (Azithromycin) 500 Mg Tablet 1 TAB PO DAILY for 3 Days, #3 TAB 0 Refills Cyanocobalamin (Vitamin B-12) (Vitamin B-12) 1,000 Mcg Tablet 1 TAB PO DAILY for 30 Days, #30 TAB 0 Refills Methylprednisolone (Medrol) 4 Mg Tab.ds.pk 1 TAB PO AD for 6 Days, #21 TAB 0 Refills 6 on day 1 then reduce by one tablet daily until gone Pantoprazole Sodium (Protonix) 40 Mg Ectab 1 TAB PO DAILY for 30 Days, #30 TAB 0 Refills Folic Acid (Folvite) 1 Mg Tab 1 MG PO DAILY for 30 Days, #30 TAB Montelukast Sodium (Singulair 10Mg) 10 Mg Tab 10 MG PO DAILY for 30 Days, #30 TAB Time spent arranging discharge: 31-60 minutes ATTESTATION BY PHYSICIAN I have seen and examined the patient. I reviewed the documentation, medical decision making, and treatment plan as noted by the resident provider above. I agree with the findings and plan of care. Eusebio Betancourt MD, ELIZABETH NP Mar 15, 2024 10:13
[2024-03-15] MEDS ORDERED: CYAN-52 PO (10:21)
[2024-03-15] MEDS ORDERED: FOLI1 PO (10:21)
[2024-03-15] MEDS ORDERED: AUD IH (10:21)
[2024-03-15] MEDS ORDERED: AZIT500T4 PO (10:21)
[2024-03-15] MEDS ORDERED: METH4TAB3 PO (10:21)
[2024-03-15] MEDS ORDERED: MONT-46 PO (10:21)
[2024-03-15 10:42] LABS: BASOPHILS # (AUTO) 0.08 K/uL (0.00-0.20); BASOPHILS % (AUTO) 0.3 % (0.0-5.0); EOSINOPHILS # (AUTO) 0.01 K/uL (0.00-0.70); HEMATOCRIT 28.9 % (36-48); IMMATURE GRANULOCYTE ABSOLUTE 2.26 K/uL (0-1); LYMPHOCYTES # (AUTO) 0.7 K/uL (1.0-4.8); LYMPHOCYTES % (AUTO) 2.7 % (21.0-51.0); MEAN CORPUSCULAR HEMOGLOBIN 22.3 pg (27.0-33.0); MEAN CORPUSCULAR HGB CONC 29.8 g/dL (32.0-36.0); MEAN CORPUSCULAR VOLUME 74.9 fL (79-99); MONOCYTES # (AUTO) 0.5 K/uL (0.1-1.0); MONOCYTES % (AUTO) 2.1 % (3.0-13.0); NEUTROPHILS # (AUTO) 22.3 K/uL (1.8-7.7); NEUTROPHILS % (AUTO) 86.2 % (40.0-77.0); NUCLEATED RED BLOOD CELLS 0.6 % (0.0-0.19); PLATELET COUNT (AUTO) 495 K/uL (130-400); RED BLOOD CELL COUNT(AUTO) 3.86 MIL/uL (4.00-5.50); RED CELL DISTRIBUTION WIDTH 18.6 % (11.0-15.5); WHITE BLOOD COUNT (AUTO) 25.8 K/uL (4.8-10.8)
[2024-03-15 11:08] LABS: ALBUMIN 2.3 g/dL (3.5-5.0); BILIRUBIN,TOTAL 0.3 mg/dL (0.2-1.0); CREATININE 0.9 mg/dL (0.5-1.0); POTASSIUM 3.3 mmol/L (3.5-5.1); TOTAL PROTEIN, SERUM 6.2 g/dL (6.0-8.3)
[2024-03-15 11:12] LABS: FREE KAPPA LIGHT CHAINS,S 25.6 mg/L (3.3-19.4)
[2024-03-15] MEDS ORDERED: PANT40TA55 PO (13:11)
--- NOTE | 2024-03-15 13:59 | PN ---
[facility] PROGRESS NOTE Date Patient Seen: Mar 15, 2024 Time of Visit: 13:59 Supervising Physician: [Dr. Diehl] Consulting Physician: [facility] Outpatient Specialists: [ ] Inpatient Consults: [ ] PROBLEM LIST: - Hypotension on admission secondary to volume depletion - Acute dehydration admission secondary to acute gastroenteritis - Hypertension - Hypertensive heart disease - Morbid obesity, BMI 35.5 - iron deficiency anemia - acute hypoxic respiratory failure on admission - suspected viral upper airway infection -COVID - influenza - adult failure to thrive - Acute kidney injury on admission on top of chronic kidney disease INTERVAL HISTORY: 03/15/2024 Patient is seen and evaluated. CTA of the chest negative for PE. USG Doppler of the legs, negative for DVT. She continues with dry, hacking cough, mostly after nebulizer, no current phlegm or fever. CT of the chest without acute infiltrates. Her WBC remain elevated secondary to high dose steroids. Afebrile, no seizures. She is without any current wheezing or congestion. Recommend to DC with albuterol inhaler and medrol dose pack. Patient is recommended to follow up with outpatient pulmonology for further evaluation and workup. REVIEW OF SYSTEMS: 12 point ROS reviewed with patient. Pertinent positives mentioned above. Otherwise negative. PHYSICAL EXAM: GENERAL: alert, weak, awake oriented x 3 HEENT: EOMI, Sclera non icteric, moist mucosa NECK: Supple, no JVD, trachea midline LUNGS: Clear breath sounds bilaterally. Diminished bibasilar area HEART: Regular rate and rhythm. Normal S1 and S2, without murmurs ABD: Large body habitus EXT: No clubbing cyanosis 3+ pitting edema NEURO: Alert and oriented to person, follows commands Vital Signs (last 8hr) Date Time Temp Pulse Resp B/P (MAP) Pulse Ox O2 Delivery O2 Flow Rate FiO2 03/15/24 12:05 97.9 82 19 144/86 92 Room Air 03/15/24 11:21 96 20 03/15/24 09:30 75 20 N/A Room Air 21 03/15/24 08:00 98.2 79 18 125/69 93 Room Air 03/15/24 08:00 93 Room Air* 0 21 03/15/24 06:41 69 20 LABS: Hematology Labs: Test 03/15/24 10:25 Range/Units White Blood Count 25.8 H 4.8-10.8 K/uL Red Blood Count 3.86 L 4.00-5.50 MIL/uL Hemoglobin 8.6 L 12.0-16.0 g/dL Hematocrit 28.9 L 36-48 % Mean Corpuscular Volume 74.9 L 79-99 fL Mean Corpuscular Hemoglobin 22.3 L 27.0-33.0 pg Mean Corpuscular Hemoglobin Concent 29.8 L 32.0-36.0 g/dL Red Cell Distribution Width 18.6 H 11.0-15.5 % Platelet Count 495 H 130-400 K/uL Mean Platelet Volume 9.3 7.5-10.5 fL Immature Granulocyte % (Auto) 8.7 H 0-1 % Neutrophils (%) (Auto) 86.2 H 40.0-77.0 % Lymphocytes (%) (Auto) 2.7 L 21.0-51.0 % Monocytes (%) (Auto) 2.1 L 3.0-13.0 % Eosinophils (%) (Auto) 0.0 0.0-8.0 % Basophils (%) (Auto) 0.3 0.0-5.0 % Neutrophils # (Auto) 22.3 H 1.8-7.7 K/uL Lymphocytes # (Auto) 0.7 L 1.0-4.8 K/uL Monocytes # (Auto) 0.5 0.1-1.0 K/uL Eosinophils # (Auto) 0.01 0.00-0.70 K/uL Basophils # (Auto) 0.08 0.00-0.20 K/uL Absolute Immature Granulocyte (auto 2.26 H 0-1 K/uL Nucleated Red Blood Cells 0.6 H 0.0-0.19 % Chemistry Labs: Test 03/15/24 10:25 03/14/24 03:40 Range/Units Sodium Level 146 H 136-145 mmol/L Potassium Level 3.3 L 3.5-5.1 mmol/L Chloride Level 108 101-111 mmol/L Carbon Dioxide Level 30 21-32 mmol/L Blood Urea Nitrogen 21 H 7-18 mg/dL Creatinine 0.9 0.5-1.0 mg/dL Glomerular Filtration Rate Calc 66 >90 mL/min Random Glucose 100 70-105 mg/dL Total Calcium 8.5 8.5-10.1 mg/dL Total Bilirubin 0.3 0.2-1.0 mg/dL Aspartate Amino Transf (AST/SGOT) 19 10-37 U/L Alanine Aminotransferase (ALT/SGPT) 16 12-78 U/L Alkaline Phosphatase 61 50-136 U/L Total Protein 6.2 6.0-8.3 g/dL Albumin 2.3 L 3.5-5.0 g/dL Magnesium Level 2.30 1.80-2.40 mg/dL DIAGNOSTICS / RADIOLOGY RESULTS: [reviewed] PLAN No evidence of PE or DVT Continue albuterol and medrol dose pack upon discharge Hemodynamically stable and medically cleared from pulmonary standpoint for discharge from hospital F/U with pulmonology outpatient for PFT and other workup as indicated NEURO: Minimize central acting medications as possible. Maintain fall precautions, adequate lighting during the day PULMONARY: Supplemental 02 as needed. Maintain aspiration precautions at all times CARDIOVASCULAR: Follow hemodynamics. Vital signs per facility protocol GI & NUTRITION: Continue with nutritional support. Continue stool softeners and laxatives as needed. KIDNEYS & ELECTROLYTES: Strict monitoring of intake, output and overall fluid balance. Avoid nephrotoxic medications to the extent possible. Medications to be dosed according to renal function. Monitor electrolytes and replace as needed ENDOCRINE: Maintain blood glucose between 100-180 at all times. Hypoglycemia protocol in place INFECTIOUS DISEASE: Trend temperature, WBC and procalcitonin level Follow cultures, deescalate antibiotics as soon as possible. Panculture if new onset fever ONCOLOGY/HEMATOLOGY/COAGULATION: Monitor for s/s of bleeding Monitor hemoglobin, coagulation studies as needed SKIN: Pressure ulcer prevention per facility protocol Specialty mattress ORTHO/REHAB: Continue PT/OT Prophylaxis: Continue GI and DVT prophylaxis Code Status: Full Resuscitation Disposition: TBD by PCP ATTESTATION BY PHYSICIAN The clinical note was scribed by Xavier Buchanan BSc on my behalf and I attest to the accuracy of the note Gadiel Sandy MD, MARCUS A PA Mar 15, 2024 13:59
[2024-03-15] MEDS: PoTASSium chloRIDE 10MEQ SR 10 MEQ/TAB TAB.SR.24H PO PRN (15:14)
--- NOTE | 2024-03-15 18:39 | NUR ---
PATIENT DISCHARGED HOME WITH COPIES OF DISCHARGE SUMMARY AND FOLLOW UP APPOINTMENTS.
[2024-03-17 17:10] LABS: ALBUMIN (IFE & ELECTROPHOR) 2.4 g/dL (2.9-4.4); ALBUMIN/GLOBULIN RATIO (IFE) 0.7 (0.7-1.7); ALPHA-1 (IFE & PEP) 0.5 g/dL (0.0-0.4); ALPHA-2 (IFE & PEP) 1.3 g/dL (0.4-1.0); GAMMA GLOBULINS (IFE & ELP) 1.2 g/dL (0.4-1.8); IGA (IFE) 238 mg/dL (64-422); IGG (IMMUNOFIXATION) 1164 mg/dL (586-1602); IGM (IMMUNOFIXATION) 72 mg/dL (26-217); M-SPIKE (IEP) Not Observed g/dL (Not Observed); TOTAL PROTEIN 6.4 g/dL (6.0-8.5)
--- NOTE | 2024-03-18 09:43 | NUR ---
POST-DISCHARGE MEDICATION QUESTION / CONCERN ARRIVED ON 4TH FLOOR UNIT, HAD COPY OF MEDICATION LIST PROVIDED AT DISCHARGE. HE STATES PATIENT WAS DISCHARGED WITH ALBUTEROL NEBULIZER SOLUTION MEDICATION BUT PATIENT DOES NOT HAVE A NEBULIZER UNIT TO ADMINISTER MEDICATION. CALLED PROVIDER JUAN MANUEL [employer]IST. SHE STATED IT SHOULD HAVE BEEN AN INHALER PRESCRIPTION. TELEPHONE ORDER OBTAINED FOR ALBUTEROL SULFATE INHALER 90MCG, 2 PUFF Q6H PRN FOR WHEEZING #1, NO REFILL., TO CALL INTO TO PHARMACY. CALLED PREFERRED PHARMACY [facility], [facility], SPOKE TO PHARMACIST AND PRESCRIPTION CALLED IN. FAMILY MEMBER UPDATED AND NOTIFIED OF NEW PRESCRIPTION.
== END 2024-03-15 18:40 | disposition home or self-care (01) | DRG 871 ==
LOC: EDH 02:17 → EDHIP 07:22 → 4CH 03-11 21:22
PROVIDERS: ADMIT Hospitalist; ATTEND Hospitalist
PROC: 30233N1 Transfusion of Nonautologous Red Blood Cells into Peripheral Vein, Percutaneous Approach (ICD-10-PCS; principal; 2024-03-11)
PROC: 0DB68ZX Excision of Stomach, Via Natural or Artificial Opening Endoscopic, Diagnostic (ICD-10-PCS; 2024-03-13)
PROC: 0DB78ZX Excision of Stomach, Pylorus, Via Natural or Artificial Opening Endoscopic, Diagnostic (ICD-10-PCS; 2024-03-13)
DX: A41.9 Sepsis, unspecified organism (principal); J18.9 Pneumonia, unspecified organism; J96.01 Acute respiratory failure with hypoxia; K25.4 Chronic or unspecified gastric ulcer with hemorrhage; K29.71 Gastritis, unspecified, with bleeding; N17.9 Acute kidney failure, unspecified; E87.1 Hypo-osmolality and hyponatremia; D62 Acute posthemorrhagic anemia; E87.20 Acidosis, unspecified; D50.9 Iron deficiency anemia, unspecified; K52.9 Noninfective gastroenteritis and colitis, unspecified; N18.30 Chronic kidney disease, stage 3 unspecified; I12.9 Hypertensive chronic kidney disease with stage 1 through stage 4 chronic kidney disease, or unspecified chronic kidney disease; E78.00 Pure hypercholesterolemia, unspecified; K44.9 Diaphragmatic hernia without obstruction or gangrene; T38.0X5A Adverse effect of glucocorticoids and synthetic analogues, initial encounter; E87.6 Hypokalemia; E86.0 Dehydration; E66.01 Morbid (severe) obesity due to excess calories; R62.7 Adult failure to thrive; Z68.35 Body mass index [BMI] 35.0-35.9, adult
CPT/HCPCS: 36415; 36600; 43239; 71045; 71250; 71270; 78278; 80048; 80053; 82040; 82270; 82550; 82607; 82728; 82746; 82803; 82948; 83521; 83605; 83735; 83880; 84145; 84443; 84484; 85014; 85018; 85025; 85378; 85610; 85730; 86140; 86334; 86850; 86900; 86901; 86923; 87635; 87804; 93005; 93306; 93356; 93970; 94640; 94664; 94667; 94668; 94760; 96365; 96375; 96376; A4606; A9512; G0378; J0456; J0696; J1644; J1756; J1940; J2270; J2405; J2470; J2543; J2704; J2919; J3490; J7030; J7040; J7608; P9016; Q9967; A4215; A4221; A4222; A4223; A4615; A4663